=== PATIENT | female | born 1935 | race Caucasian/White ===

== ENCOUNTER 2016-12-11 20:26 | Emergency (ER) | payer OTHER ==
[~2016-12-11] VITALS: Ht 147.3 cm; Wt 52.8 kg
[~2016-12-11 20:26] MED LIST: CLTP PO; ENAL20TA PO; ESTCR; FELO10TA2 PO
[2016-12-11 20:39] VITALS: BP 190/82; PULSE 82; TEMP 36.8; O2SAT 97; Ht 147.3 cm; Wt 52.8 kg
[2016-12-11] MEDS ORDERED: SERT1TAB88 PO (21:08)
[2016-12-11] MEDS ORDERED: ESTCR PV (21:08)
[2016-12-11] MEDS ORDERED: PLN/10 PO (21:08)
[2016-12-11] MEDS ORDERED: FLNIN/ NAE (21:08)
[2016-12-11] MEDS ORDERED: CALC-579 PEG (21:09)
[2016-12-11] MEDS ORDERED: GUAI1TAB55 PO (21:12)
[2016-12-11] MEDS ORDERED: EYE VITAMIN OPB (21:12)
[2016-12-11 21:50] LABS: URINE APPEARANCE CLEAR (CLEAR); URINE BILIRUBIN NEG (NEG); URINE COLOR YELLOW; URINE NITRITE NEG (NEG); URINE SPECIFIC GRAVITY 1.004 (1.000-1.030); UROBILINOGEN NEG (NEG)
[2016-12-11 21:56] LABS: MANUAL MICROSCOPIC REQUIRED? NO; REVIEW REQ? NO
--- NOTE | 2016-12-13 02:18 | EMERGENCY ROOM VISIT NOTE ---
ED Visit Note First contact with patient: 21:01 Chief Complaint: Left hip pain. History of Present Illness: Ms. King brunner is an 81-year-old white female who ambulates into the ED accompanied by her son complaining of left hip pain. Patient reports approximately 5-6 hours ago she was at rest and reported that she developed left lateral hip pain. She reports initially was mild and has gradually increased in intensity. She describes her pain as a deep achy sensation that is occasionally sharp. She rates her discomfort 4/10. She reports initially about 2-3 days ago she was experiencing some left-sided lumbar back pain while at rest. She reports the pain was not severe but subsequently self resolved. She goes on to report that she started having left hip pain. This started approximately 5-6 hours ago. Her discomfort started while she was at rest. She rates her discomfort 4/10 throughout the day but currently she is pain-free. She has not identified any aggravating or alleviating factors related to the pain. She has not taken any medication for pain prior to arrival at the hospital. She denies any associated symptoms fevers, chills, sweats, skin eruptions, skin color changes, hematuria, vaginal bleeding, vaginal discharge, diarrhea, constipation, rectal bleeding, black/ tarry stools, leg weakness/numbness/tingling. Additionally she has noted some mild urinary burning over the last day couple of days and increasing vaginal dryness. She does not have any associated fevers , chills, back/flank pain, nausea, vomiting, vaginal discharge, vaginal bleeding. 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 All body systems were reviewed and found to be negative as noted above. Past Medical History: Hypertension. Current Medications: Medications Dose Route/Sig Max Daily Dose Days Date Category [Eye Vitamin Drop] 1 Drop OPB BID 12/11/16 Reported Mucinex Ext Rel (Guaifenesin) 600 Mg Tab 600 Mg PO TID 12/11/16 Reported Calcium/Vitamin D3 600-400 mg-Unit (Calcium Carbonate-Cholecalcife) 1 Tab Tab 1 Tab PEG BID 12/11/16 Reported Estrace (Estradiol Vaginal) 0.1 Mg/Gm Cre 1 Appln PV 1-2 X WEEK 12/11/16 Reported Felodipine ER (Felodipine) 10 Mg Tabcr 10 Mg PO QAM 12/11/16 Reported Sertraline HCl 25 Mg Tab 25 Mg PO DAILY 12/11/16 Reported Fluticasone Propionate 120 Sprays/6000 Mcg Inha 2 Sprays CARSON DAILY 12/11/16 Reported Enalapril Maleate 20 Mg Tab 20 Mg PO QAM 12/30/14 Reported Allergies to Medications: Amoxicillin, hydrocodone, prednisone, penicillin, sulfa. Social History: Patient is not currently employed; she feels safe in her home environment; she denies tobacco and alcohol use. Physical Examination: Vital Signs: Date Time Temp Pulse Resp B/P Pulse Ox O2 Delivery O2 Flow Rate FiO2 12/11/16 20:39 36.8 82 18 190/82 97 Room Air GENERAL: 81-year-old female in no acute distress, nontoxic-appearing, afebrile and hemodynamically stable. NEUROLOGICAL: Awake, alert and oriented to person, place and time. Answering questions appropriately and following commands. Normal gait. Good hand eye coordination. No focal motor sensory deficits. SKIN: Warm, dry and pink. No soft tissue eruptions or trauma noted. HEENT: Atraumatic and normocephalic. PERRLA. Sclera white and conjunctiva pink. No drainage from naris. Oral cavity moist and pink. Pharynx is nonerythematous or edematous. Speech normal. No lymphadenopathy. Trachea midline. No jugular venous distention. BACK: No tenderness over the bony thoracic or lumbar spine. No palpable bony deformity, crepitus, swelling or ecchymosis. No tenderness in the paraspinous muscles. Full range of motion of the lumbar spine. No CVA tenderness. THORAX: Lungs sounds are clear to auscultation and equal bilaterally with symmetrical chest wall. ABDOMEN: Flat, soft and nontender. Positive bowel sounds in all quadrants. No guarding, rigidity or organomegaly. LOWER EXTREMITIES: No gross bony deformities. No shortening or malrotation. No tenderness throughout the hip, thigh, knee, lower leg, ankle or foot. No local swelling or bruising. 2+ patellar and Achilles the tendon reflexes intact and equal bilaterally. 4/5 muscle strength in all movements of the hips , knees, ankles and toes. ED Course: Patient is assessed as noted above. Laboratory Testing: Test 12/11/16 21:15 Range/Units Urine Color YELLOW Urine Appearance CLEAR CLEAR Urine pH 7.0 4.5-7.5 Urine Specific [place] 1.004 1.000-1.030 Urine Protein NEG NEG Urine Glucose (UA) NEG NEG Urine Ketones NEG NEG Urine Occult Blood NEG NEG Urine Nitrite NEG NEG Urine Bilirubin NEG NEG Urine Urobilinogen NEG NEG Urine Leukocyte Esterase NEG NEG Patient's case was reviewed with case management concerning the patient's trouble with her 's care; they met with the patient and gave her multiple resources for assistance with her 's care. Patient was educated about hannah's findings and instructed on her treatment plan; she verbalizes understanding and agreement with this plan. Clinical Impression: Left upper leg pain. Urinary burning. Vaginal dryness. Disposition: Patient discharged home in stable condition accompanied by her son ; prior to departure she was reassessed and subjectively reported she was pain and symptom-free and was feeling better. Plan: Patient was encouraged use ibuprofen or acetaminophen as needed for pain if it returned in her hip/back. I did tell patient was okay to use an extra dose of her estrogen cream during the week for her vaginal dryness but she was encouraged to follow-up with her family doctor. Patient was encouraged to use the resources that were given her for assistance with her . Patient was encouraged to follow-up with her primary care provider for recheck if no better in 3-4 days. Patient was encouraged return the ED for worsening/uncontrolled pain, worsening urinary burning, worsening vaginal dryness or any new/concerning symptoms.
== END 2016-12-11 23:04 | disposition home or self-care (01) ==
LOC: C.EDB 20:28 → C.EDD 23:04
DX: M25.552 Pain in left hip (principal); R30.0 Dysuria; I10 Essential (primary) hypertension; N89.8 Other specified noninflammatory disorders of vagina

== ENCOUNTER → 2017-12-03 | Day surgery (SDC) | payer OTHER ==
[2017-11-29 08:12] VITALS: Ht 151.1 cm; Wt 50.9 kg
[~2017-12-03] VITALS: Ht 151.1 cm; Wt 50.9 kg
[~2017-12-03] MED LIST changes: +CHOL100010 PO; -CLTP PO; -ESTCR; +ESTCR PV; -FELO10TA2 PO; +GUAI1TAB55 PO; +LIDOCAINE HCL 2% 2 ML VIAL (20MG/ML) ONE; +PLN/10 PO; +POLYSOL OPB; +PROPOFOL IV EMULSION 10 MG/ML 20 ML VIAL IV ONE; +SALI1SPR3 NAE; +SERT50TA PO; +SODIUM CHLORIDE 0.9% 500ML 500 ML IV ONE; +TRAZ50TA35 PO
--- NOTE | 2017-12-03 10:45 | Endo History and Physical ---
History & Physical Date of Service: Dec 03, 2017. Chief Complaint: h/o polyps Referring Physician: Dr. Messina History of Present Illness h/o polyps Past Medical History Hypertension Past Surgical History Hx Cardiac Surgery: No Hx Internal Defibrillator: No Hx Pacemaker: No Hx Abdominal Surgery: Yes (FULL HYSTER, CERVIX REMOVAL) Hx of Implantable Prosthesis: No Hx Post-Op Nausea and Vomiting: No Hx Cancer Surgery: No Hx Thoracic Surgery: No Hx Orthopedic: No Hx Urinary Tract Surgery: No Family History None Social History Smoking Status: Never Smoker Hx Substance Use: No Hx Alcohol Use: Yes (OCCASIONAL) Allergies Coded Allergies: Amoxicillin (Verified Allergy, Intermediate, Rash, 12/03/17) Sulfa Antibiotics (Verified Allergy, Intermediate, Urticaria and puritis, 12/03/17) Penicillins (Verified Allergy, Unknown, AMOXICILLIN, 12/03/17) Prednisone (Verified Allergy, Unknown, PT FELT LIKE SHE WAS HAVING HEART ATTACK, 11/29/17) Hydrocodone (Verified Adverse Reaction, Intermediate, SEVERE NAUSEA & VOMITIMG, 12/03/17) Current Medications Reported Home Medications Medications Dose Route/Sig Max Daily Dose Days Date Category Saline Nasal [place] (Saline) 0.65 % Spr 1 [place] CARSON DAILY 11/29/17 Reported Refresh (Polyvinyl Alcohol-Povidone (Op) 1 Arnol Arnol 1 Drop OPB BID 11/29/17 Reported Vitamin D (Cholecalciferol) 1,000 Unit Tab 1 Tab PO QAM 11/29/17 Reported Trazodone (Trazodone HCl) 50 Mg Tab 2 Tabs PO HS 11/29/17 Reported Mucinex Ext Rel (Guaifenesin) 600 Mg Tab 600 Mg PO BID 11/29/17 Reported Zoloft (Sertraline Hcl) 50 Mg Tab 50 Mg PO QAM 11/29/17 Reported Estrace (Estradiol Vaginal) 0.1 Mg/Gm Cre 1 Appln PV 1-2 X WEEK 12/11/16 Reported Felodipine ER (Felodipine) 10 Mg Tabcr 10 Mg PO QAM 12/11/16 Reported Enalapril Maleate 20 Mg Tab 20 Mg PO QAM 12/30/14 Reported Vital Signs Weight (Kilograms): 50.91 Height (Feet): 4 Height (Inches): 11.5 Date Time Temp Pulse Resp B/P (MAP) Pulse Ox O2 Delivery O2 Flow Rate FiO2 12/03/17 10:26 36.6 97 18 180/73 (108) 96 Room Air Physical Exam General Appearance: WD/WN, no apparent distress Assessment and Plan colonoscopy today
--- NOTE | 2017-12-03 11:18 | Discharge Instructions ---
Endoscopy Patient Instructions Date / Procedure(s) Performed Dec 03, 2017. Colonoscopy Allergy Information Coded Allergies: Amoxicillin (Verified Allergy, Intermediate, Rash, 12/03/17) Sulfa Antibiotics (Verified Allergy, Intermediate, Urticaria and puritis, 12/03/17) Penicillins (Verified Allergy, Unknown, AMOXICILLIN, 12/03/17) Prednisone (Verified Allergy, Unknown, PT FELT LIKE SHE WAS HAVING HEART ATTACK, 11/29/17) Hydrocodone (Verified Adverse Reaction, Intermediate, SEVERE NAUSEA & VOMITIMG, 12/03/17) Discharge Date / Findings Dec 03, 2017. diverticulosis; hemorrhoids Medication Instructions Stopped Medication(s): NO VITAMINS NO SLEEING PILL Restart Stopped Medication(s): OK to resume home medications Provider Instructions Activity Restrictions - No exercising or heavy lifting for 24 hours. - Do not drink alcohol the day of the procedure. - Do not drive a car or operate machinery until the day after the procedure. - Do not make any important decisions or sign important papers in 24 hours after the procedure. Following Day: - Return to full activity which may include returning to work/school. Diet Start your diet with liquids and light foods (jello, soup, juice, toast). Then eat your usual diet if not nauseated. Treatment For Common After Affects For mild abdominal pain, bloating, or excessive gas: - Rest - Eat lightly - Lie on right side Follow-Up Information Follow-up with Dr. Messina as scheduled Anesthesia Information What You Should Know You have had a procedure that required some medicine to reduce anxiety and discomfort. This treatment is called moderate sedation. After receiving the treatment, you may be sleepy, but you will be able to breathe on your own. The effects of the treatment may last for several hours. Follow these instructions along with Activity/Diet recommendations noted above: * Do NOT do anything where dizziness or clumsiness would be dangerous. * Rest quietly at home today, then you can be up and about tomorrow. * Have a responsible person stay with you the rest of today. * You may have had an I.V. today. If so, you may take the dressing off later today. Recommendations Call your doctor if: * Trouble breathing * Continuous vomiting for more than 24 hours * Temperature above 101 degrees * Severe abdominal pain or bloating * Pain not relieved by pain medicine ordered * There is increased drainage or redness from any incision * A large amount of rectal bleeding greater than 2-3 tablespoons. (If you had a polyp/s removed or have hemorrhoids, a small amount of blood - from the rectum is to be expected.) * You have any unanswered questions or concerns. IN THE EVENT OF A SERIOUS EMERGENCY, GO TO THE NEAREST EMERGENCY ROOM Your discharge instructions were prepared by provider Joselyn Petty. Patient Instructions Signature Page Lisa Rios Patient (or Guardian) Signature/Date: I have read and understand the instructions given to me by my caregivers. Caregiver/RN/Doctor Signature/Date: The above-named patient and/or guardian has received patient instructions on this date. + Original Patient Signature Page (only) stays with chart. Please make copy for patient.
--- NOTE | 2017-12-03 11:20 | GI REPORT ---
Procedure Date: 12/03/2017 10:45 AM Procedure: Colonoscopy Indications: High risk colon cancer surveillance: Personal history of colonic polyps, Family history of colonic polyps in a first-degree relative Medicines: Propofol per Anesthesia Complications: No immediate complications. Estimated blood loss: None. Estimated Blood Loss: Estimated blood loss: none. Procedure: Pre-Anesthesia Assessment: - Prior to the procedure, a History and Physical was performed, and patient medications, allergies and sensitivities were reviewed. The patient's tolerance of previous anesthesia was reviewed. - The risks and benefits of the procedure and the sedation options and risks were discussed with the patient. All questions were answered and informed consent was obtained. - Patient identification and proposed procedure were verified prior to the procedure by the physician and the nurse. The procedure was verified in the pre-procedure area in the procedure room. - Mental Status Examination: alert and oriented. Airway Examination: normal oropharyngeal airway and neck mobility. Respiratory Examination: clear to auscultation. CV Examination: normal. Abdominal Examination: bowel sounds present, abdomen soft and non-tender, no masses or organomegaly noted. - ASA Grade Assessment: III - A patient with severe systemic disease. After I obtained informed consent, the scope was passed under direct vision. Throughout the procedure, the patient's blood pressure, pulse, and oxygen saturations were monitored continuously. The scope was introduced through the anus and advanced to the terminal ileum. The colonoscopy was performed without difficulty. The patient tolerated the procedure well. The quality of the bowel preparation was good. Findings: The perianal and digital rectal examinations were normal. Pertinent negatives include normal sphincter tone and no palpable rectal lesions. The terminal ileum appeared normal. Many small and large-mouthed diverticula were found in the sigmoid colon. External and internal hemorrhoids were found during retroflexion and during perianal exam. The hemorrhoids were medium-sized and Grade I (internal hemorrhoids that do not prolapse). Impression: - The examined portion of the ileum was normal. - Diverticulosis in the sigmoid colon. - External and internal hemorrhoids. - No specimens collected. Recommendation: - No repeat colonoscopy due to age and the absence of advanced adenomas. - Return to primary care physician as previously scheduled. - Discharge patient to home. Joselyn Petty D.O. Joselyn Petty DO 12/03/2017 11:20:30 AM This report has been signed electronically. Note Initiated On: 12/03/2017 10:45 AM I attest to the content of the Intraoperative Record and orders documented therein, exceptions below
--- NOTE | 2017-12-03 11:45 | Anesthesiology Progress Note ---
Anesthesia Post Op Note Date & Time Dec 03, 2017 at 11:45 Vital Signs Pain Intensity: 0 Vital Signs Past 12 Hours Date Time Temp Pulse Resp B/P (MAP) Pulse Ox O2 Delivery O2 Flow Rate FiO2 12/03/17 11:38 78 18 123/57 (79) 97 Room Air 12/03/17 11:21 36.7 78 16 110/55 (73) 96 Room Air 12/03/17 10:26 36.6 97 18 180/73 (108) 96 Room Air Notes Mental Status: alert / awake / arousable, participated in evaluation Pt Amnestic to Procedure: Yes Nausea / Vomiting: adequately controlled Pain: adequately controlled Airway Patency, RR, SpO2: stable & adequate BP & HR: stable & adequate Hydration State: stable & adequate Anesthetic Complications: no major complications apparent
[2017-12-03 11:53] VITALS: BP 141/67; PULSE 83; O2SAT 97
== END | disposition home or self-care (01) ==
LOC: C.GI 09:56
PROVIDERS: ATTEND Internal Medicine
DX: Z12.11 Encounter for screening for malignant neoplasm of colon (principal); Z86.010 Personal history of colon polyps; K64.4 Residual hemorrhoidal skin tags; K64.8 Other hemorrhoids; K57.30 Diverticulosis of large intestine without perforation or abscess without bleeding; I10 Essential (primary) hypertension; E78.5 Hyperlipidemia, unspecified; M19.90 Unspecified osteoarthritis, unspecified site; F41.9 Anxiety disorder, unspecified; Z90.710 Acquired absence of both cervix and uterus; Z88.1 Allergy status to other antibiotic agents; Z88.0 Allergy status to penicillin; Z88.2 Allergy status to sulfonamides; Z88.5 Allergy status to narcotic agent; Z88.8 Allergy status to other drugs, medicaments and biological substances

== ENCOUNTER 2018-04-16 17:51 | Emergency (ER) | payer OTHER ==
[~2018-04-16] VITALS: Ht 152.4 cm; Wt 55.0 kg
[~2018-04-16 17:51] MED LIST changes: -LIDOCAINE HCL 2% 2 ML VIAL (20MG/ML) ONE; -PROPOFOL IV EMULSION 10 MG/ML 20 ML VIAL IV ONE; +SALI-3 NAE; -SALI1SPR3 NAE; -SODIUM CHLORIDE 0.9% 500ML 500 ML IV ONE
[2018-04-16 17:53] VITALS: TEMP 36.5
[2018-04-16] MEDS ORDERED: MECLIZINE HCL 25 MG TAB PO STA (18:13)
[2018-04-16 18:40] LABS: BASO % 0.3 %; BASO ABS # 0.02 K/uL (0-0.2); EOS % 1.6 %; HEMATOCRIT 40.7 % (37-47); IG# 0.02 K/uL (0.00-0.02); LYMPH ABS # 1.62 K/uL (1.2-3.4); MEAN CELL VOLUME 88.7 fL (80-100); MEAN CORPUSCULAR HEMOGLOBIN 30.5 pg (25-34); MEAN CORPUSCULAR HGB CONC 34.4 g/dl (32-36); MEAN PLATELET VOLUME 8.7 fL (7.4-10.4); MONO % 8.7 %; MONO ABS # 0.54 K/uL (0.11-0.59); NEUT % 63.1 %; NEUT ABS # 3.93 K/uL (1.4-6.5); PLATELET COUNT 228 K/uL (130-400); RED CELL DISTRIBUTION WIDTH CV 13.7 % (11.5-14.5); RED CELL DISTRIBUTION WIDTH SD 44.4 fL (36.4-46.3); WHITE BLOOD COUNT 6.23 K/uL (4.8-10.8)
[2018-04-16 19:02] VITALS: Ht 152.4 cm; Wt 55.0 kg
--- NOTE | 2018-04-16 19:02 | DIAGNOSTIC IMAGING REPORT ---
CT HEAD WITHOUT CONTRAST (CT) CLINICAL HISTORY: DIZZINESS LIGHTHEADEDNESS. HEADACHES. COMPARISON STUDY: No previous studies for comparison. TECHNIQUE: Axial CT of the brain is performed from the vertex to the skull base. IV contrast was not administered for this examination. A dose lowering technique was utilized adhering to the principles of ALARA. CT DOSE: 537.48 mGy.cm FINDINGS: No intra or extra-axial mass lesions are visualized. There is no CT evidence of acute cortical infarction. There is no evidence of midline shift. There is no acute hemorrhage. No calvarial fractures are visualized. There are patchy white matter hypodensities likely on a small vessel basis. There is no evidence of pathologic ventricular dilatation. There is no evidence of acute sinusitis IMPRESSION: No acute intracranial findings Electronically signed by: Raheel Thomas M.D. 04/16/2018 7:01 PM Dictated Date/Time: 04/16/2018 7:00 PM
[2018-04-16 19:09] LABS: CALCIUM 9.1 mg/dl (8.5-10.1); CREATININE 0.81 mg/dl (0.60-1.20); POTASSIUM 3.8 mmol/L (3.5-5.1)
--- NOTE | 2018-04-16 21:19 | EMERGENCY ROOM VISIT NOTE ---
History Report prepared by [place]: Ronna Hernandez Under the Supervision of: Dr. Dinesh Tatum M.D. First contact with patient: 18:08 Chief Complaint: DIZZY History of Present Illness The patient is an 82 year old female who presents to the Emergency Room with complaints of sudden dizziness that started just prior to arrival. The patient states she was eating dinner when she suddenly felt dizzy and did not think she could walk on her own. The patient denies feeling sick beforehand. She notes she is currently feeling better after having lied down and rested, but she notes that she is still slightly dizzy and cannot move her head around too quickly. The patient reports that she had similar symptoms a month to 6 weeks ago, accompanied by "lots of drainage." At the time, she reports that she visited Dr. Messina, who told her that she had the "[place] crude." The patient reports she has chronic sinusitis and takes Mucinex daily. The patient took Mucinex at 1500 today. The patient also complains of fatigue, jitteriness, shakiness, tinnitus, 1 episode of loose stool this morning, and unfocused vision. The patient reports a history of high blood pressure, which she is currently taking medication for. The patient also notes she had a hysterectomy 3 years ago, but she denies a history of diabetes, vertigo, and motion sickness. Pt denies LOC, fevers, chills, diaphoresis, neck pain, chest pain, breathing difficulties, nausea, vomiting, abdominal pain, back pain, melena, hematochezia, urinary symptoms, numbness, lymphadenopathy, rash, or other complaints. Source of History: patient Onset: just prior to arrival Position: head Quality: other (dizziness) Timing: other (sudden) Modifying Factors (Relieving): rest (lying down and rest) Associated Symptoms: + fatigue, + weakness (shakiness) Note: additional symptoms: sinus drainage, jitteriness, tinnitus, loose stool, unfocused vision Review of Systems See HPI for pertinent positives and negatives. A total of ten systems were reviewed and were otherwise negative. Past Medical & Surgical Medical Problems: (1) Hypertension (2) Sinusitis Surgical Problems: (1) S/P hysterectomy Family History No pertinent family history Social History Smoking Status: Never Smoker Marital Status: Current/Historical Medications Scheduled Cholecalciferol (Vitamin D), 1 TAB PO QAM Enalapril Maleate (Enalapril Maleate), 20 MG PO QAM Estradiol Vaginal (Estrace), 1 APPLN PV 3XMONTH Felodipine (Felodipine ER), 10 MG PO QAM Guaifenesin Ext Rel (Mucinex Ext Rel), 600 MG PO TID Saline (Saline Nasal [place]), 1 SPRAY CARSON BID Scheduled PRN Meclizine Hcl (Meclizine Hcl), 25 MG PO TID PRN for Dizziness Allergies Coded Allergies: Amoxicillin (Verified Allergy, Intermediate, Rash, 04/16/18) Sulfa Antibiotics (Verified Allergy, Intermediate, Urticaria and puritis, 04/16/18) Penicillins (Verified Allergy, Unknown, AMOXICILLIN, 04/16/18) Prednisone (Verified Allergy, Unknown, PT FELT LIKE SHE WAS HAVING HEART ATTACK, 04/16/18) Hydrocodone (Verified Adverse Reaction, Intermediate, SEVERE NAUSEA & VOMITIMG, 04/16/18) Physical Exam Vital Signs Date Time Temp Pulse Resp B/P (MAP) Pulse Ox O2 Delivery O2 Flow Rate FiO2 04/16/18 21:56 87 18 149/88 97 Room Air 04/16/18 19:52 96 18 175/82 97 Room Air 04/16/18 19:28 93 20 158/86 96 Room Air 04/16/18 19:24 96 158/86 103 189/95 109 199/107 04/16/18 18:28 91 04/16/18 18:20 Room Air 04/16/18 17:53 36.5 95 20 196/67 97 Room Air Physical Exam GENERAL: Awake, alert, well appearing, no distress HENT: Normocephalic, atraumatic. TM's normal. Oropharynx unremarkable. EYES: PERRL. EOMI. Normal conjunctiva. Sclera non-icteric. Lateral nystagmus. NECK: Supple. No nuchal rigidity. FROM. No bruit. RESPIRATORY: Breath sounds equal. No wheezes. No rhonchi. Normal respiratory effort. CARDIAC: Normal rate. Regular rhythm. No murmurs. No rubs. No JVD. GI: Soft, non distended. No tenderness to palpation. No rebound or guarding. No masses. RECTAL: Deferred. MUSCULOSKELETAL: Unremarkable. No edema. No discoloration. Gross motor strength symmetric. NEURO: Cranial nerves 2-12 grossly intact. Normal sensorium. No sensory or motor deficits noted. Speech normal. No pronator drift. Positive [place]-Hallpike. Normal heel to payton. SKIN: No rash or jaundice noted. LYMPH: No adenopathy. Medical Decision & Procedures ER Provider Diagnostic Interpretation: Radiology results as stated below per my review and radiologist interpretation: CT HEAD WITHOUT CONTRAST (CT) CLINICAL HISTORY: DIZZINESS LIGHTHEADEDNESS. HEADACHES. COMPARISON STUDY: No previous studies for comparison. TECHNIQUE: Axial CT of the brain is performed from the vertex to the skull base. IV contrast was not administered for this examination. A dose lowering technique was utilized adhering to the principles of ALARA. CT DOSE: 537.48 mGy.cm FINDINGS: No intra or extra-axial mass lesions are visualized. There is no CT evidence of acute cortical infarction. There is no evidence of midline shift. There is no acute hemorrhage. No calvarial fractures are visualized. There are patchy white matter hypodensities likely on a small vessel basis. There is no evidence of pathologic ventricular dilatation. There is no evidence of acute sinusitis IMPRESSION: No acute intracranial findings Electronically signed by: Raheel Thomas M.D. 04/16/2018 7:01 PM Dictated Date/Time: 04/16/2018 7:00 PM Laboratory Results 04/16/18 18:25 Red Blood Count 4.59, Mean Corpuscular Volume 88.7, Mean Corpuscular Hemoglobin 30.5, Mean Corpuscular Hemoglobin Concent 34.4, Mean Platelet Volume 8.7, Neutrophils (%) (Auto) 63.1, Lymphocytes (%) (Auto) 26.0, Monocytes (%) (Auto) 8.7, Eosinophils (%) (Auto) 1.6, Basophils (%) (Auto) 0.3, Neutrophils # (Auto) 3.93, Lymphocytes # (Auto) 1.62, Monocytes # (Auto) 0.54, Eosinophils # (Auto) 0.10, Basophils # (Auto) 0.02 04/16/18 18:25 Test 04/16/18 18:25 04/16/18 18:26 04/16/18 20:20 White Blood Count 6.23 K/uL (4.8-10.8) Red Blood Count 4.59 M/uL (4.2-5.4) Hemoglobin 14.0 g/dL (12.0-16.0) Hematocrit 40.7 % (37-47) Mean Corpuscular Volume 88.7 fL (80-100) Mean Corpuscular Hemoglobin 30.5 pg (25-34) Mean Corpuscular Hemoglobin Concent 34.4 g/dl (32-36) Platelet Count 228 K/uL (130-400) Mean Platelet Volume 8.7 fL (7.4-10.4) Neutrophils (%) (Auto) 63.1 % Lymphocytes (%) (Auto) 26.0 % Monocytes (%) (Auto) 8.7 % Eosinophils (%) (Auto) 1.6 % Basophils (%) (Auto) 0.3 % Neutrophils # (Auto) 3.93 K/uL (1.4-6.5) Lymphocytes # (Auto) 1.62 K/uL (1.2-3.4) Monocytes # (Auto) 0.54 K/uL (0.11-0.59) Eosinophils # (Auto) 0.10 K/uL (0-0.5) Basophils # (Auto) 0.02 K/uL (0-0.2) RDW Standard Deviation 44.4 fL (36.4-46.3) RDW Coefficient of Variation 13.7 % (11.5-14.5) Immature Granulocyte % (Auto) 0.3 % Immature Granulocyte # (Auto) 0.02 K/uL (0.00-0.02) Anion Gap 8.0 mmol/L (3-11) Est Creatinine Clear Calc Drug Dose 41.0 ml/min Estimated GFR () 77.8 Estimated GFR (Non- 67.2 BUN/Creatinine Ratio 22.2 (10-20) Calcium Level 9.1 mg/dl (8.5-10.1) Thyroid Stimulating Hormone (TSH) 2.690 uIu/ml (0.300-4.500) Bedside Glucose 115 mg/dl (70-90) Urine Color YELLOW Urine Appearance CLEAR (CLEAR) Urine pH 7.0 (4.5-7.5) Urine Specific [place] 1.012 (1.000-1.030) Urine Protein NEG (NEG) Urine Glucose (UA) NEG (NEG) Urine Ketones NEG (NEG) Urine Occult Blood NEG (NEG) Urine Nitrite NEG (NEG) Urine Bilirubin NEG (NEG) Urine Urobilinogen NEG (NEG) Urine Leukocyte Esterase NEG (NEG) Laboratory results reviewed by me Medications Administered Medications (Trade) Dose Ordered Sig/Forrest Route Start Time Stop Time Status Last Admin Dose Admin Meclizine HCl (Antivert Tab) 25 mg NOW STAT PO 04/16/18 18:13 04/16/18 18:15 DC 04/16/18 18:26 25 MG Meclizine HCl (Antivert 25MG Home Pack) 1 homepack UD ONCE PO 04/16/18 21:30 04/16/18 21:31 DC 04/16/18 21:45 1 HOMEPACK ECG Per My Interpretation Indication: other (dizziness) Rate (beats per minute): 92 Rhythm: sinus with SA Findings: other (no ST elevation, no ST depression, normal intervals) ED Course 1808: The patient was evaluated in room A3. A complete history and physical exam was performed. 1812: Ordered Antivert Tab 25 mg PO. 1999: I checked on the patient and updated her on her results. The patient is feeling better and preparing for an oral challenge and ambulatory trial. 2129: Ordered Antivert 25MG Home Pack 1 homepack PO. 2149: I reevaluated the patient. Discussed results and discharge instructions: She verbalized understanding and agreement. The patient is ready for discharge. Medical Decision Prior records/ancillary studies reviewed. Triage Nursing notes reviewed and agree them. The patient's history was concerning for dizziness. Differential diagnosis: Etiologies such as benign positional vertigo, tumor, infection, hypoglycemia, electrolyte abnormalities, cardiac sources, intracerebral event, toxicologic, neurologic, as well as others were entertained. Physical examination: As above. No pathologic nystagmus. No neurologic findings. ER treatment provided: Oral meclizine On reassessment the patient felt well. She is tolerating oral fluids. Her ambulatory trial was normal. Blood pressure improved without direct intervention. I suspect her blood pressure elevation was due to her illness. Diagnostics interpretation by me: ECG: Normal sinus rhythm without ischemic change or evidence of dysrhythmia. Laboratory studies: The labs revealed a normal CBC and chemistry panel except for mild hyponatremia. Urinalysis negative. Imaging studies: CAT scan as above The patient has an examination and history that seems most consistent with a benign positional vertigo. Meclizine and rest made her feel significantly better. Her blood pressure was still moderately elevated. I did discuss this with her. She will need close outpatient follow-up. By the evaluation outlined above other emergent etiologies such as those listed in the differential, as well as others, were deemed relatively unlikely. The patient was educated about the findings as listed above. All questions were answered and the patient was pleased with the treatment. Return instructions were outlined and the patient was discharged in stable condition. The patient was referred to her PCP for follow-up for a recheck of the current condition. Medication Reconcilliation Current Medication List: was personally reviewed by me Blood Pressure Screening Patient's blood pressure: Elevated blood pressure Blood pressure disposition: Referred to PCP Impression Primary Impression: Dizziness Additional Impression: Vertigo Scribe Attestation The scribe's documentation has been prepared under my direction and personally reviewed by me in its entirety. I confirm that the note above accurately reflects all work, treatment, procedures, and medical decision making performed by me. Departure Information Dispostion Home / Self-Care Prescriptions Meclizine Hcl (MECLIZINE HCL) 25 Mg Tab 25 MG PO TID Y for Dizziness, #21 TAB Prov: Dinesh Tatum MD 04/16/18 Referrals Alexander Messina M.D.([facility]) (PCP) Forms HOME CARE DOCUMENTATION FORM, IMPORTANT VISIT INFORMATION Patient Instructions My [facility] Additional Instructions DIZZINESS INSTRUCTIONS: DO NOT drive, drink alcohol, operate machinery, or perform dangerous activities today. You were given medications in the ER that can affect your ability to safely function or operate a vehicle. You should not drive or perform any dangerous activities until your symptoms resolve. Meclizine 25mg: Take 1 pill every 8 hours as needed for dizziness or vertigo. Avoid alcohol, operating machinery or dangerous equipment, working on ladders or roofs, DRIVING, or situations where being under the influence may be dangerous Rest and drink plenty of fluids as tolerated. Continue current medications. If you have nausea or vomiting: Once your stomach is settled start with a clear liquid diet (jello, soup broth, etc.) and then advance as tolerated. You should avoid full, heavy meals for about 24 hrs from the time your symptoms resolved. Return to the ER immediately for worsening or persistent dizziness, vomiting, headache, fevers, chest pains, difficulty breathing, black or bloody stools, slurred speech, numbness, weakness, visual changes, worsening of your condition , or as needed. Follow up with your primary physician in 2-3 days for a recheck of your current condition. Problem Qualifiers
[2018-04-16] MEDS ORDERED: MECL1TAB42 PO (21:20)
[2018-04-16] MEDS ORDERED: MECLIZINE HCL 25MG HOME PACK PO ONE (21:30)
[2018-04-16 21:56] VITALS: BP 149/88; PULSE 87; O2SAT 97
== END 2018-04-16 21:58 | disposition home or self-care (01) ==
LOC: C.EDB 17:52 → C.EDA 21:58
DX: R42 Dizziness and giddiness (principal); J32.9 Chronic sinusitis, unspecified; I10 Essential (primary) hypertension; Z79.899 Other long term (current) drug therapy; Z88.1 Allergy status to other antibiotic agents; Z88.2 Allergy status to sulfonamides; Z88.0 Allergy status to penicillin; Z88.6 Allergy status to analgesic agent; Z88.8 Allergy status to other drugs, medicaments and biological substances

== ENCOUNTER 2023-12-16 23:41 | Inpatient (IN) ==
[2023-12-17 00:14] LABS: Basophils # (auto) 0.03 K/uL (0.00-0.20); Basophils % (auto) 0.4 %; Eosinophils # (auto) 0.19 K/uL (0.00-0.50); Eosinophils % (auto) 2.6 %; Hematocrit (blood only) 38.7 % (37.0-47.0); Immature Granulocytes # (auto) 0.02 K/uL (0.01-0.20); Immature Granulocytes % (auto) 0.3 %; Lymphocytes # (auto) 1.53 K/uL (1.20-3.40); Lymphocytes % (auto) 20.6 %; Mean Corpuscular Hemoglobin 29.3 pg (25.0-34.0); Mean Corpuscular Hgb Conc 33.6 g/dL (32.0-36.0); Mean Corpuscular Volume 87.2 fL (80.0-100.0); Monocytes # (auto) 0.83 K/uL (0.11-0.59); Monocytes % (auto) 11.2 %; Neutrophils # (auto) 4.84 K/uL (1.40-6.50); Neutrophils % (auto) 64.9 %; Platelet Count 235 K/uL (130-400); RDW Coefficient of Variation 13.6 % (11.5-14.5); RDW Standard Deviation 43.7 fL (36.4-46.3); Red Blood Count 4.44 M/uL (4.20-5.40); White Blood Count 7.44 K/ul (4.8-10.8)
[2023-12-17 00:27] LABS: Alanine Aminotransferase 10 U/L (7-52); Albumin Globulin Ratio 1.2 (0.9-2); Albumin Level 4.1 gm/dl (3.4-5.0); Alkaline Phosphatase 102 U/L (34-104); Anion Gap 8 (3-11); Aspartate Aminotransferase 15 U/L (13-39); BUN Creatinine Ratio 27.9 (10-20); Bilirubin,Total 0.5 mg/dl (0.2-1.0); Blood Urea Nitrogen 24 mg/dl (6-23); Calcium 9.5 mg/dl (8.6-10.3); Carbon Dioxide 26 mmol/L (21-32); Chloride 98 mmol/L (98-107); Est GFR (African American) 69.4 ml/min; Est GFR (Non-African American) 59.9 ml/min; Globulin 3.3 gm/dl (2.5-4.0); Glucose 109 mg/dl (70-99(Fasting)); Potassium 3.3 mmol/L (3.5-5.1); Sodium 132 mmol/L (136-145); Total Protein 7.4 gm/dl (6.0-8.3)
[2023-12-17 00:34] LABS: Troponin I High Sensitivity 4.6 pg/ml (0-14)
[2023-12-17 00:44] LABS: Partial Thromboplastin Time 27 Seconds (21-31); Prothrombin Time 11.3 Seconds (9.0-12.0)
--- NOTE | 2023-12-17 01:19 | Emergency Department Note ---
Impression & Plan Chest pain, HTN (hypertension), Hypokalemia ED Provider Note NAME: ROSARIO ÁLVAREZ AGE: 88 SEX: F : 1935 ARRIVES VIA: Ambulance INFORMANT: Patient ED PROVIDER(S): Kyrie Martinez DO CHIEF COMPLAINT: chest pain HPI: Patient is an 88-year-old female with a past medical history of anxiety, vertigo, dizziness and hypertension who presents to the ER for precordial chest pain. She notes it lasted for about 20 minutes. She has trouble describing how it felt but notes that it was an uncomfortable feeling in the middle of her chest. She has some jaw pain with it. No arm pain or significant shortness of breath. She notes she did have a headache as well which consistent with her typical headaches. No belly pain, nausea, vomiting, or diarrhea. No dysuria, urgency, or frequency. No other exacerbating or remitting factors. ADDITIONAL HISTORY OBTAINED: Per HPI Chronic Medical/Social Conditions Affecting Care: Per HPI PAST MEDICAL HISTORY:See Below PAST SURGICAL HISTORY:See Below FAMILY HISTORY:See Below SOCIAL HISTORY:See Below HOME MEDICATIONS:See Below ALLERGIES:See Below VITALS:See Below PHYSICAL EXAMINATION: GENERAL: Sitting up in bed, alert, well appearing, well nourished, no distress, non-toxic EYE EXAM: normal conjunctiva. OROPHARYNX: mucous membranes are moist NECK: supple, no nuchal rigidity, no adenopathy, non-tender LUNGS: Clear to auscultation. Normal chest wall mechanics HEART: no murmurs, S1 normal and S2 normal ABDOMEN: abdomen soft, non-tender, normo-active bowel sounds, no masses, no rebound or guarding. BACK: Back is symmetrical on inspection and there is no deformity, no midline tenderness, no CVA tenderness. SKIN: no rashes and no bruising UPPER EXTREMITIES: upper extremities are grossly normal. LOWER EXTREMITIES: No pitting edema. Calves are equal bilaterally NEURO EXAM: Normal sensorium, cranial nerves II-XII grossly intact, normal speech, no gross weakness of arms, no gross weakness of legs. MEDICAL DECISION MAKING: Patient is an 88-year-old female who presents ER for above-stated complaint. IV was established blood work was obtained. Labs show no significant leukocytosis or anemia. INR unremarkable. BMP with mild hypokalemia 3.3. LFTs bilirubin was unremarkable. Troponin was negative. Chest x-ray showed no focal infiltrate. Patient was given 162 of aspirin. She had already taken aspirin prior to arrival. She is chest pain-free. She was updated bedside discussed with the hospitalist and admitted for further workup. EKG was unchanged from previous. Consults/Care Managements Discussions: Per [facility] Triage Nursing notes reviewed. Limited review of prior medical records performed Vital Signs: reviewed and remarkable for HTN Differential diagnosis: Cardiac ischemia, aortic dissection, pulmonary embolism, pneumothorax, pneumonia, pericarditis, myocarditis, esophageal rupture, GERD, cholecystitis, pancreatitis, musculoskeletal, as well as other pathologies. ER treatment provided: See below Diagnostics interpreted by me include EKG and cardiac monitoring as listed below: -Cardiac Monitoring: An order was placed for continuous cardiac monitoring. The monitor shows a rate of 80 with sinus rhythm. -ECG: Sinus rhythm rate 79 Normal axis Inferior Q waves QTc 447 -Laboratory studies:Interpreted by me as stated above in MDM and shown below. Imaging studies: Xrays: As interpreted by me: Portable AP upright 1 view of the chest shows no focal infiltrate CTs show: none Procedures:none Critical Care: None Past Med/Surg History Medical History (Updated 12/17/23 @ 04:41 by Kyrie Martinez DO) Anxiety Vertigo Dizziness Hypertension Sinusitis Surgical History S/P hysterectomy Social History Smoking Status: Never smoker Hx Alcohol Use: No Hx Substance Use: No Preferred Language: Greenlandic Communication Ability: Effective Precise Winder Required: No Beliefs That Will Affect Care: None Current Living Situation: Alone Feels Safe at Home: Yes Assistive Devices: Walker Allergies Allergies Allergy/AdvReac Type Severity Reaction Status Date / Time amoxicillin Allergy Intermediate Rash Verified 12/17/23 01:43 loratadine Allergy Intermediate Rash Verified 12/17/23 01:43 [From Claritin-D 12 Hour] Penicillins Allergy Intermediate AMOXICILLIN Verified 12/17/23 01:43 -RASH pseudoephedrine Allergy Intermediate Rash Verified 12/17/23 01:43 [From Claritin-D 12 Hour] Sulfa (Sulfonamide Allergy Intermediate Urticaria Verified 12/17/23 01:43 Antibiotics) and puritis hydrocodone AdvReac Severe SEVERE Verified 12/17/23 01:43 NAUSEA & VOMITIMG prednisone AdvReac Intermediate ELEVATED Verified 12/17/23 01:43 B/P PER [facility] Home Meds Home Medications Medication Instructions Recorded Confirmed sertraline 25 mg tablet 37.5 mg PO QAM 08/11/19 12/17/23 felodipine 5 mg tablet,extended 5 mg PO QAM 02/08/21 12/17/23 release 24 hr guaifenesin 600 mg tablet, 600 mg PO QAM Congestion 11/08/21 12/17/23 extended release 12 hr (Mucinex) lorazepam 0.5 mg tablet 0.5 mg PO TID PRN Anxiety 11/08/21 12/17/23 ascorbic acid (vitamin C) 250 mg 250 mg PO DAILY 12/17/23 12/17/23 tablet (Vitamin C) calcium carbonate 600 mg calcium 600 mg PO QPM 12/17/23 12/17/23 (1,500 mg) tablet cholecalciferol (vitamin D3) 25 25 mcg PO QPM 12/17/23 12/17/23 mcg (1,000 unit) capsule (Vitamin D3) cyanocobalamin (vitamin B-12) 1,000 mcg PO DAILY 12/17/23 12/17/23 1,000 mcg tablet (Vitamin B-12) sodium chloride 3 % nasal mist 1 spray intranasal BID 12/17/23 12/17/23 (Saline Nasal Mist) vitamins A,C,I-pwfs-mhffpo 4,296 1 cap PO BID 12/17/23 12/17/23 mcg-226 mg-90 mg capsule (ICaps AREDS) Results & Data (ED) Vital Signs Vital Signs - 24 hr 12/16/23 23:43 Temperature 37.0 C Temperature Source Temporal Artery Scan Pulse Rate 81 Respiratory Rate 20 Respiratory Effort / Characteristics Non-Labored Spontaneous Respiratory Depth Normal Respiratory Pattern Regular Blood Pressure 204/84 H Blood Pressure Mean 124 Pulse Oximetry 96 Oxygen Delivery Method Room Air Sepsis Recent Fever Within 48 Hours Yes Sepsis New/Unexplained Change in Mental Status No Sepsis Action Taken by Nursing No Action Required Laboratory Data 12/16/23 23:51 12/16/23 23:51 Lab Results 12/16/23 Range/Units 23:51 WBC 7.44 (4.8-10.8) K/ul RBC 4.44 (4.20-5.40) M/uL Hgb 13.0 (12.0-16.0) g/dl Hct 38.7 (37.0-47.0) % MCV 87.2 (80.0-100.0) fL MCH 29.3 (25.0-34.0) pg MCHC 33.6 (32.0-36.0) g/dL RDW Std Deviation 43.7 (36.4-46.3) fL RDW Coeff of Anya 13.6 (11.5-14.5) % Plt Count 235 (130-400) K/uL MPV 9.0 L (9.4-12.4) fL Immature Gran % (Auto) 0.3 % Neut % (Auto) 64.9 % Lymph % (Auto) 20.6 % Fleming % (Auto) 11.2 % Eos % (Auto) 2.6 % Baso % (Auto) 0.4 % Neut # (Auto) 4.84 (1.40-6.50) K/uL Lymph # (Auto) 1.53 (1.20-3.40) K/uL Fleming # (Auto) 0.83 H (0.11-0.59) K/uL Eos # (Auto) 0.19 (0.00-0.50) K/uL Baso # (Auto) 0.03 (0.00-0.20) K/uL Immature Gran # (Auto) 0.02 (0.01-0.20) K/uL PT 11.3 (9.0-12.0) Seconds INR 1.0 (0.9-1.1) APTT 27 (21-31) Seconds PTT Ratio 1.0 Sodium 132 L (136-145) mmol/L Potassium 3.3 L (3.5-5.1) mmol/L Chloride 98 (98-107) mmol/L Carbon Dioxide 26 (21-32) mmol/L Anion Gap 8 (3-11) BUN 24 H (6-23) mg/dl Creatinine 0.86 (0.6-1.2) mg/dl Est Cr Clr Drug Dosing Not Reportable Est GFR ( Amer) 69.4 ml/min Est GFR (Non-Af Amer) 59.9 ml/min BUN/Creatinine Ratio 27.9 H (10-20) Glucose 109 H (70-99(Fasting)) mg/dl Calcium 9.5 (8.6-10.3) mg/dl Total Bilirubin 0.5 (0.2-1.0) mg/dl AST 15 (13-39) U/L ALT 10 (7-52) U/L Alkaline Phosphatase 102 (34-104) U/L Troponin I High Sens 4.6 (0-14) pg/ml Total Protein 7.4 (6.0-8.3) gm/dl Albumin 4.1 (3.4-5.0) gm/dl Globulin 3.3 (2.5-4.0) gm/dl Albumin/Globulin Ratio 1.2 (0.9-2) Administered Medications Sodium Chloride (Sodium Chloride 0.65% Na Soln 45 Ml ([place])) 1 sprays NA BID CINTHYA Stop: 01/16/24 04:03 Last Admin: 12/17/23 04:09 Dose: Not Given Documented By: MARY JANE Discontinued Medications Aspirin (Aspirin Chew 324 Mg) 162 mg PO NOW STA Stop: 12/17/23 01:20 Last Admin: 12/17/23 02:52 Dose: 162 mg Documented By: MARY JANE Discharge Plan Visit Data Chief Complaint: Cardiac Assessment Stated Complaint: CARDIAC ASSESSMENT ED Provider: Kyrie Martinez Discharge Problem: Chest pain, HTN (hypertension), Hypokalemia Discharge Instructions Interventions: ED Discharge Assessment Last Done: 12/17/23 03:41 Discharge Problem: Chest pain Qualifiers: Chest pain type: unspecified Qualified Code(s): R07.9 - Chest pain, unspecified HTN (hypertension) Qualifiers: Hypertension type: unspecified Qualified Code(s): I10 - Essential (primary) hypertension
[2023-12-17] MEDS: ASPIRIN CHEW 324 MG PO STA (02:52)
--- NOTE | 2023-12-17 03:00 | History & Physical Report ---
Date of Service December 17, 2023 Assessment & Plan (1) Chest pain: Plan: 88-year-old female with past medical history significant for hypertension, generalized osteoarthritis, osteoporosis, Sjogren's syndrome, generalized anxiety disorder, asymmetric's sensorineural hearing loss who lives at [facility] comes because of chest pain. Patient had chest pain which lasted maybe 15 to 20 minutes in the middle of the chest 5/10 in severity which prompted her to come to the ER. Blood pressure was elevated in the ER. Patient states hasa lot of anxiety. She gets neck pains from anxiety. Currently denies any headache. No runny nose or sore throat. Vision is okay. No dizziness. No sweating. No nausea. No shortness of breath. No abdominal pain. Normal bowel and bladder movements. Resting comfortably. Likes to go home but agreed to stay for further workup Chest pains Rule out ACS Initial EKG and troponin okay Will follow serial enzymes and echo and repeat EKG N.p.o. for now Consult cardiology for further recommendations Hypertensive urgency Continue home amlodipine IV labetalol as needed Will monitor. Generalized anxiety disorder Continue home medications DVT prophylaxis SCDs Disposition Telemetry Full code History of Present Illness Chief Complaint: Chest pain Primary Care Provider: Arlen Reveles DO 88-year-old female with past medical history significant for hypertension, generalized osteoarthritis, osteoporosis, Sjogren's syndrome, generalized anxiety disorder, asymmetric's sensorineural hearing loss who lives at [facility] comes because of chest pain. Patient had chest pain which lasted maybe 15 to 20 minutes in the middle of the chest 5/10 in severity which prompted her to come to the ER. Blood pressure was elevated in the ER. Patient states has lot of anxiety. She gets neck pains from anxiety. Currently denies any headache. No runny nose or sore throat. Vision is okay. No dizziness. No sweating. No nausea. No shortness of breath. No abdominal pain. Normal bowel and bladder movements. Resting comfortably. Likes to go home but agreed to stay for further workup. Past med history. As mentioned above Past surgical history. Colonoscopy. Total abdominal hysterectomy with removal of tubes Social history. . No smoking. Alcohol rarely. No drug use. Family history. Mother had arthritis. Stroke. Maternal grandmother had arthritis. Leukemia. Allergies Allergy/AdvReac Type Severity Reaction Status Date / Time amoxicillin Allergy Intermediate Rash Verified 12/17/23 01:43 loratadine Allergy Intermediate Rash Verified 12/17/23 01:43 [From Claritin-D 12 Hour] Penicillins Allergy Intermediate AMOXICILLIN Verified 12/17/23 01:43 -RASH pseudoephedrine Allergy Intermediate Rash Verified 12/17/23 01:43 [From Claritin-D 12 Hour] Sulfa (Sulfonamide Allergy Intermediate Urticaria Verified 12/17/23 01:43 Antibiotics) and puritis hydrocodone AdvReac Severe SEVERE Verified 12/17/23 01:43 NAUSEA & VOMITIMG prednisone AdvReac Intermediate ELEVATED Verified 12/17/23 01:43 B/P PER [facility] Home Medications Medication Instructions Recorded Confirmed Type sertraline 25 mg tablet 37.5 mg PO QAM 08/11/19 12/17/23 History felodipine 5 mg tablet,extended 5 mg PO QAM 02/08/21 12/17/23 History release 24 hr guaifenesin 600 mg tablet, 600 mg PO QAM Congestion 11/08/21 12/17/23 History extended release 12 hr (Mucinex) lorazepam 0.5 mg tablet 0.5 mg PO TID PRN Anxiety 11/08/21 12/17/23 History ascorbic acid (vitamin C) 250 mg 250 mg PO DAILY 12/17/23 12/17/23 History tablet (Vitamin C) calcium carbonate 600 mg calcium 600 mg PO QPM 12/17/23 12/17/23 History (1,500 mg) tablet cholecalciferol (vitamin D3) 25 25 mcg PO QPM 12/17/23 12/17/23 History mcg (1,000 unit) capsule (Vitamin D3) cyanocobalamin (vitamin B-12) 1,000 mcg PO DAILY 12/17/23 12/17/23 History 1,000 mcg tablet (Vitamin B-12) sodium chloride 3 % nasal mist 1 spray intranasal BID 12/17/23 12/17/23 History (Saline Nasal Mist) vitamins A,C,O-jhny-sxxpfj 4,296 1 cap PO BID 12/17/23 12/17/23 History mcg-226 mg-90 mg capsule (ICaps AREDS) Past Med/Surg History Medical History (Updated 12/17/23 @ 04:41 by Kyrie Martinez DO) Anxiety Vertigo Dizziness Hypertension Sinusitis Surgical History S/P hysterectomy Social History Smoking Status: Never smoker Hx Alcohol Use: No Hx Substance Use: No Preferred Language: French Communication Ability: Effective Collar Trimmer Required: No Beliefs That Will Affect Care: None Current Living Situation: Alone Feels Safe at Home: Yes Assistive Devices: Walker Review of Systems Review of Systems: All systems reviewed & are unremarkable except as noted in HPI & below Physical Exam Physical Exam: General- Not in distress Head- atraumatic Eyes- PERRL. ENT- oropharynx clear Neck- supple, no JVD. Lungs- clear to auscultation no wheezing or crackles. Heart- regular rhythm; no murmur, no gallop. Abdomen- normal bowel sounds, soft, nontender, no distension. Extremities- no pretibial edema, no erythema seen. Neuro- alert, oriented PERRL, no facial palsy; no dysarthria; moves extremities. Skin- warm & dry Results & Data Results & Data Vital Signs (Past 12 Hours) Vital Signs Temp Pulse Resp BP Pulse Ox O2 Del Method 12/16/23 23:43 37.0 C 81 20 204/84 H 96 Room Air Diagnostic Findings Laboratory Results WBC 7.44 K/ul (4.8-10.8) 12/16/23 23:51 RBC 4.44 M/uL (4.20-5.40) 12/16/23 23:51 Hgb 13.0 g/dl (12.0-16.0) 12/16/23 23:51 Hct 38.7 % (37.0-47.0) 12/16/23 23:51 MCV 87.2 fL (80.0-100.0) 12/16/23 23:51 MCH 29.3 pg (25.0-34.0) 12/16/23 23:51 MCHC 33.6 g/dL (32.0-36.0) 12/16/23 23:51 RDW Std Deviation 43.7 fL (36.4-46.3) 12/16/23 23:51 RDW Coeff of Anya 13.6 % (11.5-14.5) 12/16/23 23:51 Plt Count 235 K/uL (130-400) 12/16/23 23:51 MPV 9.0 fL (9.4-12.4) L 12/16/23 23:51 Immature Gran % (Auto) 0.3 % 12/16/23 23:51 Neut % (Auto) 64.9 % 12/16/23 23:51 Lymph % (Auto) 20.6 % 12/16/23 23:51 [place] % (Auto) 11.2 % 12/16/23 23:51 Eos % (Auto) 2.6 % 12/16/23 23:51 Baso % (Auto) 0.4 % 12/16/23 23:51 Neut # (Auto) 4.84 K/uL (1.40-6.50) 12/16/23 23:51 Lymph # (Auto) 1.53 K/uL (1.20-3.40) 12/16/23 23:51 [place] # (Auto) 0.83 K/uL (0.11-0.59) H 12/16/23 23:51 Eos # (Auto) 0.19 K/uL (0.00-0.50) 12/16/23 23:51 Baso # (Auto) 0.03 K/uL (0.00-0.20) 12/16/23 23:51 Immature Gran # (Auto) 0.02 K/uL (0.01-0.20) 12/16/23 23:51 PT 11.3 Seconds (9.0-12.0) 12/16/23 23:51 INR 1.0 (0.9-1.1) 12/16/23 23:51 APTT 27 Seconds (21-31) 12/16/23 23:51 PTT Ratio 1.0 12/16/23 23:51 Sodium 132 mmol/L (136-145) L 12/16/23 23:51 Potassium 3.3 mmol/L (3.5-5.1) L 12/16/23 23:51 Chloride 98 mmol/L (98-107) 12/16/23 23:51 Carbon Dioxide 26 mmol/L (21-32) 12/16/23 23:51 Anion Gap 8 (3-11) 12/16/23 23:51 BUN 24 mg/dl (6-23) H 12/16/23 23:51 Creatinine 0.86 mg/dl (0.6-1.2) 12/16/23 23:51 Est Cr Clr Drug Dosing Not Reportable 12/16/23 23:51 Est GFR ( Amer) 69.4 ml/min 12/16/23 23:51 Est GFR (Non-Af Amer) 59.9 ml/min 12/16/23 23:51 BUN/Creatinine Ratio 27.9 (10-20) H 12/16/23 23:51 Glucose 109 mg/dl (70-99(Fasting)) H 12/16/23 23:51 Calcium 9.5 mg/dl (8.6-10.3) 12/16/23 23:51 Total Bilirubin 0.5 mg/dl (0.2-1.0) 12/16/23 23:51 AST 15 U/L (13-39) 12/16/23 23:51 ALT 10 U/L (7-52) 12/16/23 23:51 Alkaline Phosphatase 102 U/L (34-104) 12/16/23 23:51 Troponin I High Sens 4.6 pg/ml (0-14) 12/16/23 23:51 Total Protein 7.4 gm/dl (6.0-8.3) 12/16/23 23:51 Albumin 4.1 gm/dl (3.4-5.0) 12/16/23 23:51 Globulin 3.3 gm/dl (2.5-4.0) 12/16/23 23:51 Albumin/Globulin Ratio 1.2 (0.9-2) 12/16/23 23:51 Code Status & VTE Plan VTE Prophylaxis Plan VTE Prophylaxis will be ordered: Yes
[2023-12-17] MEDS ORDERED: ACETAMINOPHEN 325 MG TAB PO PRN (03:41)
[2023-12-17] MEDS ORDERED: NITROGLYCERIN SL 0.4 MG/TAB TAB SL PRN (03:41)
[2023-12-17] MEDS: SODIUM CHLORIDE 0.65% NA SOLN 45 ML (OCEAN) SCH (04:09)
--- OUTSIDE RECORDS SUMMARY | 2023-12-17 06:24 | External Medical Summary | Summary of Care ---
Author Name Unknown Organization [facility] Address [address] [place] [address] Phone [phone] Care Team Providers Care Vehicle Delivery Worker Name Role Phone Arlen Reveles DO Primary Care Provider + [phone] Reason for Visit * Reason Onset Date Comments Appointment 11/18/2023 Rescheduled pcp appt Encounter Details Date Type Department Care Team (Late st Contact Info) Description 11/18/2023 Telephone Family Practice [address] [facility], [place] [address] [place] [address] Arlen Reveles DO [address] [place], [place] [phone] Appointment (Rescheduled pcp appt) Allergies Active Allergy Reactions Criticality Noted Date Comments Amoxicillin 09/01/2005 Rash Loratadine-Pseudoephedrin e Er 05/17/2020 rash Hydrocodone Nausea/vomiting High 02/08/2021 Prednisone 05/10/2008 Elevated BP Sulfa Antibiotics 05/02/2013 Urticaria and pruritis. documented as of this encounter (statuses as of 11/18/2023) Medications Medication Sig Dispensed Refills Start Date End Date Status MUCINEX 600 MG PO TB12 as needed 0 Active SALINE 0.4 % NA SOLN Twice daily for sinus 0 Active Vitamin C 250 MG Oral Tablet (Ascorbic Acid) Take 1 Tablet by mouth in the morning. 0 Active Vitamin D 25 MCG (1000 UT) Oral Tablet Take by mouth. 0 Active Vitamin B-12 1000 MCG Oral Tablet Take 1 Tablet by mouth in the morning. 0 Active ICaps AREDS Formula Oral Tablet Take twice daily with food 0 11/15/2022 Active Calcium Carbonate 600 MG Oral Tablet Take 1 Tablet by mouth every evening. 0 Active Felodipine ER 5 MG Oral Tablet Extended Release 24 Hour (Plendil) TAKE ONE TABLET BY MOUTH IN THE MORNING 100 Tablet 3 12/31/2022 02/11/2024 Active Sertraline HCl 25 MG Oral Tablet (Zoloft) Take one and one-half tablets by mouth in the morning. 135 Tablet 1 09/03/2023 Active LORazepam 0.5 MG Oral Tablet (Ativan)Indications :THADDEUS (generalized anxiety disorder) Take 1 Tablet by mouth every 8 hours as needed for Anxiety. 90 Tablet 0 10/10/2023 Active documented as of this encounter (statuses as of 11/18/2023) Active Problems Problem Noted Date Diagnosed Date Sjogren's syndrome without extraglandular involv ement 02/12/2020 THADDEUS (generalized anxiety disorder) 12/14/2019 Left asymmetrical SNHL 04/18/2018 HTN, goal below 130/80 08/03/2009 Overview: Modified per HTN protocol #16. Generalized osteoarthritis 06/18/2003 Senile osteoporosis documented as of this encounter (statuses as of 11/18/2023) Resolved Problems Problem Noted Date Diagnosed Date Resolved Date Other chronic sinusitis 04/18/201810/18 Carpal tunnel syndrome of left wrist 03/05/2018 11/11/2020 Allergic rhinitis 12/30/2017 11/13/2021 Primary osteoarthritis of both hands 09/04/2016 11/11/2020 Hemorrhoids, external without complications 06/19/2014 06/19/2017 Piles (hemorrhoids) 06/19/2014 06/19/20 17 Dyslipidemia, goal LDL below 160 11/19/2013 12/30/2017 Dyslipidemia, goal to be determined 08/25/2009 11/19/2013 Overview: Per Lipid Taxonomy. Osteoporosis 04/29/2009 11/07/2011 Urticaria 05/10/2008 06/02/2018 ADVANCE DIRECTIVE INFORMATION 09/01/2005 11/11/2020 Overview: Yes, Patient instructed to provide copy of advance directive for provider to review and to be scanned into Electronic Medical Record BENIGN NEOPLASM LG BOWEL 11/11/2000 HYPERTENSION NOS 08/04/2009 Overview: Modified per HTN protocol #16. PURE HYPERCHOLESTEROLEM 08/16 Overview: Per Lipid Taxonomy. Menopause 06/19/2017 documented as of this encounter (statuses as of 11/18/2023) Immunizations Name Administration Dates Next Due COVID-19 mRNA, LNP-s, No Pre serve, 2-Dose Series (Pfizer) 09/19/2021,01/03/2021,12/13/2020 Pneumococcal Conjugate Vacc, 13 Valent (Prevnar) 06/01/2015 Pneumococcal Polysaccharide PPV23 (Pneumovax) 06/21/2008 Seasonal Influenza Virus Vac cine, Unspecified Formulation 06/21/2020,07/06/2019,06/02/2018,05/27,06/13/2016,05/26/2014,06/12/2013 ,06/13/2012,06/07/2011,06/07/2010,08/18,06/21/2008,07/09/2007, 6,06/28/2005,08/03/2004,06/18/2003,,07/31/2000,07/03/1999 Seasonal Influenza, PF, 6 M & above, IM , (FluLaval or Fluzone) 06/21/2020,06/02/2018 Seasonal Influenza, Quadriva lent Hd (Fluzone Hd) 06/18/2023,05/29/2022,06/22/2021 Seasonal Influenza, Quadriva lent, No Preserve, IM 05/27/2017,06/13/2016,06/22/2015 Seasonal Influenza, Split, I IV3, With Preserve, Inj 05/26/2014,06/12/2013,06/13/2012,06/07,06/07/2010,09/14/2009,06/21/2008 ,07/09/2007,07/04/2006 Seasonal Influenza, Trivalen t, Adjuvanted, 65+ yrs 07/06/2019 TDAP (age 10 and older)(Boostrix) 11/15/2022, Varicella Zoster Vaccine (Adult) 06/13/2012 Zoster Vaccine Recombinant (Shingrix) 04/20/2019 ,01/01/2019 documented as of this encounter Social History Tobacco Use Types Packs/Day Years Used Date Smoking Tobacco: Never Smokeless Tobacco: Never Comments:no passive smoke ex posures Alcohol Use Standard Drinks/Week Comments Yes 0 (1 standard drink = 0.6 oz pur e alcohol) Very rare PHQ-2 Answer Date Recorded PHQ Adult Total Score 0 09/25/2023 Hunger Vital Sign Answer Date Recorded Within the past 12 months, y ou worried that your food would run out before you got the money to buy more. Never true 09/25/19 Within the past 12 months, t he food you bought just didn't last and you didn't have money to get more. Never true 09/25/2023 Sex and Gender Information Value Date Recorded Sex Assigned at Female 12/22/2018 9:48 AM EDT Gender Identity Female 12/22/2018 9:48 AM EDT Sexual Orientation Straight 12/22/2018 9: 48 AM EDT Job Start Date Occupation Industry Not on file Not on file Not on file documented as of this encounter Miscellaneous Notes * Telephone Encounter - Dasha Maier OSA - 11/18/2023 3:06 PM EST Rescheduled 5.20.[address] Reveles to 6.7.24, both at 11:20 am. Called to advise of change, however; the line is busy. Attempted three times, will try later. documented in this encounter Plan of Treatment Upcoming Encounters Date Type Department Care Team (Late st Contact Info) Description 02/21/2024 11:20 AM EDT Office Visit Family Practice [address], [place] [address] [place] [phone] Arlen Reveles DO [address] [facility] [place] [address] 06/17/2024 3:20 PM EDT Office Visit Rheumatology [facility] [address] [facility] [place] [address] Del Johnson MD [address] [facility] [place] [address] Health Maintenance Due Date Last Done Comments COVID-19 Vaccine (2022-24 season) 2023 09/19/2021, 01/03/2021, 12/13/2020 Depression Screening 09/25/2024 09/25/2023 DXA Scan 10/22/2024 10/22/2022, 0202/2023, 03/08/2020, Additional history exists Albumin/Creatinine Ratio 08/04/2025 08/04/2022 DTaP,Tdap,and Td Vaccines (3 - Td or Tdap) 11/15/2032 11/15/2022, 05/07/2012, 12/29/2004, Additional history exists Pneumococcal Vaccine: 65+ Years Completed 06/01/2015, 06/21/2008, 03/31/1999 Zoster Vaccines Completed 04/20/2019, 12/15, 06/13/2012 Influenza Vaccine (FLU shot) Completed 11/2022, 05/29/2022, 06/22/2021, Additional history exists VITAMIN D LEVEL ONCE IN A LIFETIME-USE SMARTSET# [id number] Completed 08/01/2023, 06/22/2021, 11/03/2010, Additional history exists GARDASIL-HPV IMMUNIZATION SERIES Aged Out No longer eligible based on patient's age to complete this topic Hepatitis B Aged Out No longer eligi ble based on patient's age to complete this topic MENINGOCOCCAL (MENACTRA/MENVEO) Aged Out No longer eligible based on patient's age to complete this topic documented as of this encounter Medical Devices Not on filedocumented as of this encounter Care Teams Vehicle Delivery Worker Relationship Specialty Start Date End Date Arlen Reveles DO [address] [place] [address] PCP - General Family Medicine 11/15/22 documented as of this encounter
--- OUTSIDE RECORDS SUMMARY | 2023-12-17 06:24 | External Medical Summary | Summary of Care ---
Author Name Unknown Organization [facility] Address [address] [place] [address] Phone [phone] Care Team Providers Care Analog Design Engineer Name Role Phone Arlen Reveles DO Primary Care Provider + [phone] Reason for Visit * Reason Onset Date Comments Appointment 11/18/2023 Rescheduled pcp appt Encounter Details Date Type Department Care Team (Late st Contact Info) Description 11/18/2023 Telephone Family Practice [address] [facility] [place] [address] [place] [address] Arlen Reveles DO [address] [place], [place] [phone] Appointment (Rescheduled pcp appt) Allergies Active Allergy Reactions Criticality Noted Date Comments Amoxicillin 09/01/2005 Rash Loratadine-Pseudoephedrin e Er 05/17/2020 rash Hydrocodone Nausea/vomiting High 02/08/2021 Prednisone 05/10/2008 Elevated BP Sulfa Antibiotics 05/02/2013 Urticaria and pruritis. documented as of this encounter (statuses as of 11/26/2023) Medications Medication Sig Dispensed Refills Start Date [...] 09/03/2023 Active LORazepam 0.5 MG Oral Tablet (Ativan)Indicatio ns:THADDEUS (generalized anxiety disorder) Take 1 Tablet by mouth every 8 hours as needed for Anxiety. 90 Tablet 0 10/10/2023 11/18/2023 Discontinued (Refill) documented as of this encounter (statuses as of 11/26/2023) Active Problems Problem Noted Date Diagnosed Date Sjogren's syndrome without extraglandular involv ement 02/12/2020 THADDEUS (generalized anxiety disorder) 12/14/2019 Left asymmetrical SNHL 04/18/2018 HTN, goal below 130/80 08/03/2009 Overview: Modified per HTN protocol #16. Generalized osteoarthritis 06/18/2003 Senile osteoporosis documented as of this encounter (statuses as of 11/26/2023) Resolved Problems Problem Noted Date Diagnosed Date [...] as of this encounter (statuses as of 11/26/2023) Immunizations Name Administration Dates Next Due COVID-19 mRNA, LNP-s, No Pre serve, 2-Dose Series (Pfizer) 09/19/2021,01/03/2021,12/13/2020 Pneumococcal Conjugate Vacc, 13 Valent (Prevnar) 06/01/2015 Pneumococcal Polysaccharide PPV23 (Pneumovax) 06/21/2008,03/31/1999 Seasonal Influenza Virus Vac cine, Unspecified Formulation 06/21/2020,07/06/2019,06/02/2018,05/27,06/13/2016,05/26/2014,06/12/2013 ,06/13/2012,06/07/2011,06/07/2010,08/18,06/21/2008,07/09/2007, 6,06/28/2005,08/03/2004,06/18/2003,,07/31/2000,07/03/1999 Seasonal Influenza, PF, 6 M & above, IM , (FluLaval or Fluzone) 06/21/2020,06/02/2018 Seasonal Influenza, Quadriva lent Hd (Fluzone Hd) 06/18/2023,05/29/2022,06/22/2021 Seasonal Influenza, Quadriva lent, No Preserve, IM 05/27/2017,06/13/2016,06/22/2015 Seasonal Influenza, Split, I IV3, With Preserve, Inj 05/26/2014,06/12/2013,06/13/2012,06/07,06/07/2010,09/14/2009,06/21/2008 ,07/09/2007,07/04/2006,06/28/2005,07/17,06/18/2003,07/14/2002, 0,07/03/1999 Seasonal Influenza, Trivalen t, Adjuvanted, 65+ yrs 07/06/2019 TD - Tetanus/Diptheria (ADULT) 02/14/1991 TD, Preservative Free 12/29/2004 TDAP (age 10 and older)(Boostrix) 11/15/2022, Varicella [...] money to buy more. Never true 09/25/19 24 Within the past 12 months, t he [...] Telephone Encounter - Dasha Maier OSA - 11/26/2023 2:35 PM EDT Pt aware * Telephone Encounter - Dasha Maier OSA [...] EDT Office Visit Family Practice [address], [place] [address] [facility] [place] [address] Arlen Reveles DO [address] [place] [address] 06/17/2024 3:20 PM EDT Office Visit Rheumatology [facility] [address] [place] [address] Del Johnson MD [address] [place] [address] Health Maintenance Due Date Last Done Comments COVID-19 Vaccine ( season) 2023 09/19/2021, 01/03/2021, 12/13/2020 Depression Screening 09/25/2024 09/25/2023 DXA Scan 10/22/2024 10/22/2022, 02/2023, 03/08/2020, Additional history exists Albumin/Creatinine Ratio 08/04/2025 08/04/2022 DTaP,Tdap,and Td Vaccines (3 - Td or Tdap) 11/15/2032 11/15/2022, 05/07/2012, 12/29/2004, Additional history exists Pneumococcal Vaccine: 65+ Years Completed 06/01/2015, 06/21/2008, 03/31/1999 Zoster Vaccines Completed 04/20/2019, 12/15, 06/13/2012 Influenza Vaccine (FLU shot) Completed 11/2022, 05/29/2022, 06/22/2021, Additional history exists VITAMIN D LEVEL ONCE IN A LIFETIME-USE SMARTSET# [id number] Completed 08/01/2023, 06/22/2021, 11/03/2010, Additional history exists [...] filedocumented as of this encounter Care Teams Analog Design Engineer Relationship Specialty Start Date End Date Arlen Reveles DO [address] [place] [address] PCP - General Family Medicine 11/15/22 documented as of this encounter
--- OUTSIDE RECORDS SUMMARY | 2023-12-17 06:24 | External Medical Summary | Summary of Care ---
Author Name Unknown Organization [facility] Address [address] [place] [address] Phone [phone] Care Team Providers Care Pc Maintenance Technician Name Role Phone Arlen Helton DO Primary Care Provider + [phone] Reason for Visit * Reason Onset Date Comments Medication Refill 11/18/2023 Encounter Details Date Type Department Care Team (Late st Contact Info) Description 11/18/2023 Refill Family Practice [address], [place] [address] [place] [phone] Arlen Helton DO [address] [place] [address] THADDEUS (generalized anxiety disorder) Allergies Active Allergy Reactions Criticality Noted Date Comments Amoxicillin 09/01/2005 Rash Loratadine-Pseudoephedrin e Er 05/17/2020 rash Hydrocodone Nausea/vomiting High 02/08/2021 Prednisone 05/10/2008 Elevated BP Sulfa Antibiotics 05/02/2013 Urticaria and pruritis. documented as of this encounter (statuses as of 11/19/2023) Medications Medication Sig Dispensed Refills Start Date [...] as needed for Anxiety. 90 Tablet 0 11/19/2023 Active LORazepam 0.5 MG Oral Tablet (Ativan)Indicatio ns:THADDEUS (generalized anxiety disorder) Take 1 Tablet by mouth every 8 hours as needed for Anxiety. 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 Generalized osteoarthritis 06/18/2003 Senile osteoporosis documented as of this encounter (statuses as of 11/19/2023) Resolved Problems Problem Noted Date Diagnosed Date [...] as of this encounter (statuses as of 11/19/2023) Immunizations Name Administration Dates Next Due COVID-19 [...] encounter Miscellaneous Notes * Telephone Encounter - Arlen Helton DO - 11/19/2023 2:48 PM ESTSigned Prescriptions: Disp Refills LORazepam 0.5 MG Oral Tablet (Ativan) 90 Tab*0 Sig: Take 1 Tablet by mouth every 8 hours as needed for Anxiety.Authorizing Provider: ARLEN HELTON * Telephone Encounter - Arlen Helton DO - 11/19/2023 2:47 PM EST Rx sent. I have reviewed the patients controlled substance dispensing history in the Prescription Drug Monitoring Program in compliance with the [facility] regulations before prescribing a controlled substance. Last Tox Screen Results: No results found for this or any previous visit. * Telephone Encounter - Del Sanchez [facility] - 11/19/2023 2:38 PM ESTPending Prescriptions: Disp Refills LORazepam 0.5 MG Oral Tablet (Ativan) 90 Tab*0 Sig: Take 1 Tablet by mouth every 8 hours as needed for Anxiety. * Telephone Encounter - Del Sanchez [facility] - 11/19/2023 2:38 PM EST I have reviewed the patients controlled substance dispensing history in the Prescription Drug Monitoring Program in compliance with the [facility] regulations before prescribing a controlled substance. PDMP checked on 11/19/2023. Pending Prescriptions: Disp Refills LORazepam 0.5 MG Oral Tablet (Ativan) 90 Tab*0 Sig: Take 1 Tablet by mouth every 8 hours as needed for Anxiety. Last Visit: 10/30/2023 (in office), Visit date not found (telemedicine) Next Visit: 02/21/2024 Date medication was last filled: 10-11-23 Date medication is due for refill: 11-09-23 Pharmacy: [facility] Is this request for a controlled substance? Yes and Urine Drug Screen Not completed Toxicology results: No results found for this or any previous visit. Please approve if appropriate. Thanks, Del Sanchez, James.Ph. Clinical Pharmacist [facility] [phone] ext [phone] 11/19/2023,2:38 PM * Telephone Encounter - Gloria Dodson CPhT - 11/18/2023 10:06 AM EST Did you pend patient's preferred pharmacy and medication before forwarding?yes Pharmacy: [facility] Pending Prescriptions: Disp Refills LORazepam 0.5 MG Oral Tablet (Ativan) 90 Tab*0 Sig: Take 1 Tablet by mouth every 8 hours as needed for Anxiety. Last Visit: 10/30/2023 (in office), Visit date not found (telemedicine) Next Visit: 02/03/2024 If no future appointments scheduled, and last appointment is greater than a year ago, please schedule patient for a follow-up appointment Last date the medication was ordered: 10/10/2023 Is this request for a controlled substance?Yes, What was the last refill date 10/10/2023 w/ [id number] and dosage 0.5mg and Urine Drug Screen Not completed Urine Drug Screen:No results found for this or any previous visit. Patient Phone Numbers Labs: Lab Results Component Value Date/Time CREAT 0.7 08/19/2023 11:26 AM CREAT 0.55 (A) 11/21/2021 12:00 AM CREAT 0.7 03/08/2020 08:36 AM POTASSIUM 4.5 08/19/2023 11:26 AM POTASSIUM 3.5 11/21/2021 12:00 AM POTASSIUM 3.9 03/08/2020 08:36 AM POTASSIUM 4.1 12/04/1996 09:25 AM TSH 2.690 04/16/2018 12:00 AM TSH 2.59 11/03/2010 10:15 AM LDLCALC 133 (H) 08/01/2023 01:51 PM LDLCALC 140 (H) 11/28/2015 09:06 AM LDLDIRECT 144 (H) 11/03/2010 10:15 AM ALT 14 08/01/2023 01:51 PM ALT 11 11/24/2014 10:02 AM HGBA1C 5.4 03/08/2020 08:36 AM documented in this encounter Plan of Treatment Upcoming Encounters Date Type Department Care Team (Late st Contact Info) Description 02/21/2024 11:20 AM EDT Office Visit Family Practice [address] [place] [address], [place] [address] [place] [address] Arlen Helton DO 293 [facility] [place] [address] 06/17/2024 3:20 PM EDT Office Visit Rheumatology [facility] [address] [place] [address] Del Johnson MD [address] [place] [address] Health Maintenance Due Date Last Done Comments [...] D LEVEL ONCE IN A LIFETIME-USE SMARTSET# [id number] Completed 08/01/2023, 06/22/2021, 11/03/2010, Additional history exists [...] Not on filedocumented as of this encounter Visit Diagnoses Diagnosis THADDEUS (generalized anxiety disorder) Generalized anxiety disorder documented in this encounter Care Teams Pc Maintenance Technician Relationship Specialty Start Date End Date Arlen Helton DO [address] [place] [address] PCP - General Family Medicine 11/15/22 documented as of this encounter
--- OUTSIDE RECORDS SUMMARY | 2023-12-17 06:25 | External Medical Summary | Summary of Care ---
Author Name Unknown Organization [facility] Address [address] [place] [address] Phone [phone] Care Team Providers Care [employer] Crewmember Name Role Phone Arlen Reveles DO Primary Care Provider + [phone] Reason for Visit * Reason Onset Date Comments Test Results 09/05/202309/05 Encounter Details Date Type Department Care Team (Late st Contact Info) Description 09/05/2023 Telephone Family Practice [address] [facility], [place] [address] [place] [address] Arlen Reveles DO [address] [place] [address] Test Results (09/05) Allergies Active Allergy Reactions Criticality Noted Date Comments Amoxicillin 09/01/2005 Rash Loratadine-Pseudoephedrin e Er 05/17/2020 rash Hydrocodone Nausea/vomiting High 02/08/2021 Prednisone 05/10/2008 Elevated BP Sulfa Antibiotics 05/02/2013 Urticaria and pruritis. documented as of this encounter (statuses as of 09/05/2023) Medications Medication Sig Dispensed Refills Start Date [...] IN THE MORNING 100 Tablet 3 12/31/2022 12/31/2023 Active Nystatin 932074 UNIT/GM External CreamIndications:C andidal skin infection APPLY TOPICALLY TO AFFECTED AREA TWO TIMES A DAY 30 g 2 11/15/2022 11/15/2023 Active LORazepam 0.5 MG Oral Tablet (Ativan)Indication s:THADDEUS (generalized anxiety disorder) Take 1 Tablet by mouth every 8 hours as needed for Anxiety. 90 Tablet 0 08/21/2023 Active Sertraline HCl 25 MG Oral Tablet (Zoloft) Take one and one-half tablets by mouth in the morning. 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 Generalized osteoarthritis 06/18/2003 Senile osteoporosis documented as of this encounter (statuses as of 09/05/2023) Resolved Problems Problem Noted Date Diagnosed Date [...] as of this encounter (statuses as of 09/05/2023) Immunizations Name Administration Dates Next Due COVID-19 mRNA, LNP-s, No Pre serve, 2-Dose Series (Stereotypes) 09/19/2021,01/03/2021,12/13/2020 Pneumococcal Conjugate Vacc, 13 Valent (Prevnar) [...] Date Recorded PHQ Adult Total Score 0 08/01/2023 Hunger Vital Sign Answer Date Recorded Within the past 12 months, y ou worried that your food would run out before you got the money to buy more. Never true 08/01/20 23 Within the past 12 months, t he food you bought just didn't last and you didn't have money to get more. Never true 08/01/2023 Sex and Gender Information Value Date Recorded Sex Assigned at Female 12/22/2018 9:48 AM EDT Gender Identity Female 12/22/2018 9:48 AM EDT Sexual Orientation Straight 12/22/2018 9: 48 AM EDT Job Start Date Occupation Industry Not on file Not on file Not on file documented as of this encounter Miscellaneous Notes * Telephone Encounter - Genie Moulton LPN - 09/05/2023 9:08 AM EST Call placed to patient and relayed information from Dr. Reveles. Patient acknowledged understanding. No further questions at this time. * Telephone Encounter - Genie Moulton LPN - 09/05/2023 9:06 AM EST ----- Message from Arlen Reveles DO sent at 09/05/2023 9:02 AM EST ----- Your recent mammogram was normal. You can continue to follow with a regular screening mammogram in 1 year. Take Care, ~Dr. Reveles documented in this encounter Plan of Treatment Upcoming Encounters Date Type Department Care Team (Late st Contact Info) Description 10/30/2023 11:20 AM EST Office Visit Family Practice [address] [place] [address] 293 [place] [address] Arlen Reveles DO 293 [facility] [place] [address] 06/17/2024 3:20 PM EDT Office Visit Rheumatology [facility] [address] [place] [address] Del Johnson MD [address] [place], [place] [address] Health Maintenance Due Date Last Done Comments COVID-19 Vaccine ( season) 2023 09/19/2021, 01/03/2021, 12/13/2020 Depression Screening 08/01/2024 08/01/2023 DXA Scan 10/22/2024 10/22/2022, 02/15, 01/04/2015, Additional history exists Albumin/Creatinine Ratio 08/04/2025 08/04/2022 DTaP,Tdap,and Td Vaccines (3 - Td or Tdap) 11/15/2032 11/15/2022, 05/07/2012, 12/29/2004, Additional history exists Pneumococcal Vaccine: 65+ Years Completed 06/01/2015, 06/21/2008, 03/31/1999 Zoster Vaccines Completed 04/20/2019, 12/15, 06/13/2012 Influenza Vaccine (FLU shot) Completed 11/2022, 05/29/2022, 06/22/2021, Additional history exists VITAMIN D LEVEL ONCE IN A LIFETIME-USE SMARTSET# [id number] Completed 08/01/2023, 06/22/2021, 11/03/2010, Additional history exists [...] filedocumented as of this encounter Care Teams [employer] Crewmember Relationship Specialty Start Date End Date Arlen Reveles DO [address] [place] [address] PCP - General Family Medicine 11/15/22 documented as of this encounter
--- OUTSIDE RECORDS SUMMARY | 2023-12-17 06:25 | External Medical Summary | Summary of Care ---
Author Name Unknown Organization [facility] Address [address] [place] [address] Phone [phone] Care Team Providers Care Cashier Courtesy Booth Name Role Phone Arlen Reveles DO Primary Care Provider + [phone] Reason for Visit * Reason Onset Date Comments Advice 09/24/2023 appt Information 09/24/202309/24 Encounter Details Date Type Department Care Team (Late st Contact Info) Description 09/24/2023 Telephone Family Practice [address], [place] [address] [place] [phone] Arlen Reveles DO [address] [place], [place] [phone] Advice (appt); Information (09/24) Allergies Active Allergy Reactions Criticality Noted Date Comments Amoxicillin 09/01/2005 Rash Loratadine-Pseudoephedrin e Er 05/17/2020 rash Hydrocodone Nausea/vomiting High 02/08/2021 Prednisone 05/10/2008 Elevated BP Sulfa Antibiotics 05/02/2013 Urticaria and pruritis. 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 Generalized osteoarthritis 06/18/2003 Senile osteoporosis documented as of this encounter (statuses as of 09/24/2023) Resolved Problems Problem Noted Date Diagnosed Date [...] as of this encounter (statuses as of 09/24/2023) Immunizations Name Administration Dates Next Due COVID-19 [...] Miscellaneous Notes * Telephone Encounter - Arlen Reveles DO - 09/24/2023 8:55 AM EST Noted. * Telephone Encounter - Genie Moulton LPN - 09/24/2023 8:45 AM EST Call placed to patient for details. Patient reports she had a dizzy spell yesterday and called EMS.States dizziness resolved by the time EMS arrived - was not taken to ED. States vitals from EMS 163/70, HR 78. States she took a Meclizine which was prescribed by Dr. Mckoy in the past. Reports she takes Lorazepam twice a day for anxiety. States she feels dizziness was related to her nerves. Also reports chronic mild pain above her left ear. States no dizziness today. Pt unable to come for appt today; requested appt tomorrow. Agreeable to 0940 OV - appt scheduled. * Telephone Encounter - Dasha Field OSA - 09/24/2023 8:26 AM EST Is having more dizzy spells Had EMS out there last night Vitals ok, she was told to call her PCP Wants an appointment tomorrow, she can't do the early appointments Please call and advise documented in this encounter Plan of Treatment Upcoming Encounters Date Type Department Care Team (Late st Contact Info) Description 09/25/2023 9:40 AM EST Office Visit Family Practice [address] [place] [address] [address] [place] [address] Arlen Reveles, [address] [place] [address] 10/30/2023 11:20 AM EST Office Visit Family Practice [address] [place] [address] [address] [place] [address] Arlen Reveles DO [address] [place] [address] 06/17/2024 3:20 PM EDT Office Visit Rheumatology [facility] [address] [place], [place] [address] Del Johnson MD [address] [place], [place] [address] Health Maintenance Due Date Last Done Comments COVID-19 Vaccine (2022- season) 2023 09/19/2021, 01/03/2021, 12/13/2020 Depression Screening [...] D LEVEL ONCE IN A LIFETIME-USE SMARTSET# [id number] Completed 08/01/2023, 06/22/2021, 11/03/2010, Additional history exists [...] filedocumented as of this encounter Care Teams Cashier Courtesy Booth Relationship Specialty Start Date End Date Arlen Reveles DO [address] [place] [address] PCP - General Family Medicine 11/15/22 documented as of this encounter
--- OUTSIDE RECORDS SUMMARY | 2023-12-17 06:25 | External Medical Summary | Summary of Care ---
Author Name Unknown Organization [facility] Address [address] [place] [address] Phone [phone] Care Team Providers Care Irrigation Foreman Name Role Phone Arlen Reveles DO Primary Care Provider + [phone] Reason for Visit * Reason Comments Acute Encounter Details Date Type Department Care Team (Latest Contact Info) Description 09/25/2023 9:40 AM EST Office Visit Family Practice [address] [place] [address] [place] [address] Arlen Reveles DO [address] [place] [address] Dizziness*; THADDEUS (generalized anxiety disorder); Hypertension with goal blood pressure less than 140/90; Senile osteoporosis; Sjogren's syndrome without extraglandular involvement (HCC); Risk and functional assessment Allergies Active Allergy Reactions Criticality Noted Date Comments Amoxicillin 09/01/2005 Rash Loratadine-Pseudoephedrin e Er 05/17/2020 rash Hydrocodone Nausea/vomiting High 02/08/2021 Prednisone 05/10/2008 Elevated BP Sulfa Antibiotics 05/02/2013 Urticaria and pruritis. documented as of this encounter (statuses as of 09/25/2023) Medications Medication Sig Dispensed Refills Start Date [...] 100 Tablet 3 12/31/2022 12/31/2023 Active Nystatin [id number] UNIT/GM External CreamIndications:C andidal skin infection APPLY [...] as of this encounter (statuses as of 09/25/2023) Active Problems Problem Noted Date Diagnosed Date Sjogren's syndrome without extraglandular involv ement 02/12/2020 THADDEUS (generalized anxiety disorder) 12/14/2019 Left asymmetrical SNHL 04/18/2018 HTN, goal below 130/80 08/03/2009 Overview: Modified per HTN protocol #16. Generalized osteoarthritis 06/18/2003 Senile osteoporosis documented as of this encounter (statuses as of 09/25/2023) Resolved Problems Problem Noted Date Diagnosed Date [...] as of this encounter (statuses as of 09/25/2023) Immunizations Name Administration Dates Next Due COVID-19 [...] Date Smoking Tobacco: Never Smokeless Tobacco: Never Tobacco Cessation:Counseling Given: Yes Comments:no passive smoke exposures Alcohol Use Standard Drinks/Week Comments Yes 0 [...] on file documented as of this encounter Last Filed Vital Signs Vital Sign Reading Time Taken Comments Blood Pressure 126/70 09/25/2023 11:11 AM EST Pulse 92 09/25/2023 11:11 AM EST Temperature 36.6 C (97.9 F) 09/25/2023 9:59 AM ES T Respiratory Rate 14 09/25/2023 9:59 AM EST Oxygen Saturation 98% 09/25/2023 11:11 AM EST Inhaled Oxygen Concentration - - Weight 50.1 kg (110 lb 8 oz) 09/25/2023 9:59 AM EST Height 148.6 cm (4' 10.5") 09/25/2023 9:59 AM ES T Body Mass Index 22.7 09/25/2023 9:59 AM EST documented in this encounter Patient Instructions * Patient Instructions* Genie MoultonFRANSISCON - 09/25/2023 9:57 AM EST Patient Instructions - Fall Prevention (This education is for all patients over 65 regardless of symptoms) Remember to take your current medications as prescribed. In order to prevent falls, you are encouraged to: Exercise Utilize assistive/adaptive devices Avoid multifocal lenses when walking Avoid hazards in home Maintain a regular toileting schedule Any questions please contact our office. Preventing Falls in the Home (This education is for all patients over 65 regardless of symptoms) As you get older, falls are more likely. Thats because your reaction time slows. Your muscles and joints may also get stiffer, making them less flexible. Illness, medications, and vision changes can also affect your balance. A fall could leave you unable to live on your own. To make your home safer, follow these tips: Floors Put nonskid pads under area rugs Remove throw rugs Replace worn floor coverings Tack carpets firmly to each step on carpeted stairs. Put nonskid strips on the edges of uncarpeted stairs Keep floors and stairs free of clutter and cords Arrange furniture so there are clear pathways Clean up any spills right away Bathrooms Install grab bars in the tub or shower Apply nonskid strips or put a nonskid rubber mat in the tub or shower Sit on a bath chair to bathe Use bathmats with nonskid backing Lighting Keep a flashlight in each room Put a nightlight along the pathway between the bedroom and the bathroom [employer] Patient Education Copyright 2008 - 2010 Han except where otherwise noted Preventing Falls: Exercises to Improve Balance, Flexibility, Strength, and Staying Power (This education is for all patients over 65 regardless of symptoms) Certain types of exercises may help make you less likely to fall. Try the ones below. Or do other exercises that your healthcare provider suggests. Depending on your health, you may need to start slowly. Dont let that stop you. Even small amounts of exercise can help you. Be sure to talk to yourhealthcare provider before starting any exercise program. Improve Balance Many types of exercise can help improve balance. Gustavo chi and yoga are good examples. Heres another one to try. You can do it anytime and almost anywhere. Stand next to a counter or solid support. Push yourself up onto your tiptoes. Hold for 5 seconds. If you start to lose your balance, hold on to the counter. Rest and repeat 5 times. Work up to holding for 20 to 30 seconds, if you can. Increase Flexibility Being more flexible makes it easier for you to move around safely. Try exercises like the seated hamstring stretch. Sit in a chair and put one foot on a stool. Straighten your leg and reach with both hands down either side of your leg. Reach as far down your leg as you can. Hold for about 20 seconds. Go back to the starting position. Then repeat 5 times. Switch legs. Build Strength Resistance exercises help build strength. You can do them without equipment. Or you can use weights, elastic bands, or special machines. One such exercise is called the biceps curl. You can hold a 1 pound weight or even a can of soup. Do this exercise at least 3 times a week. Strive for everyday. Sit up straight in a chair. Keep your elbow close to your body and your wrist straight. Bend your arm, moving your hand up to your shoulder. Then slowly lower your arm. Repeat 5 times. Switch to the other arm. Build Your Staying Power Aerobic exercises make your heart and lungs stronger so you can keep moving longer. Walking and swimming are two of the best types of exercises you can do. Using a stationary bike is great, too. Find an aerobic exercise that you enjoy. Start slowly and build up. Even 5 minutes is helpful. Aimfor a goal of 30 minutes, at least 3 times a week. You dont have to do 30 minutes in one session. Break it up and walk a little throughout the day. More Helpful Tips Start easy. Slowly work up to doing more. Talk with your healthcare provider about the best exercises for you. Call senior centers or health clubs about exercise programs. If needed, have a family member watch you walk every so often to check your stability. Exercise with a friend. Choose an activity you both enjoy. Try exercises that you can do anytime, anywhere. Here are two examples. Have someone with you when you first try these: Practice walking by placing one foot right in front of the other. Stand up and sit down 10 times. Repeat this throughout the day. Han Patient Education Copyright 2009 - 2010 Han except where otherwise noted. Preventing Falls: Moving Safely Using a Cane or Walker (This education is for all patients over 65 regardless of symptoms) Keep the cane away from your feet so you dont trip. A walking aid, such as a cane or walker, can help you stay more independent and avoid falls. Remember to keep your walking aid within easy reach when youre in a chair or in bed. And learn how to use it safely so you dont injure yourself. Using a Cane If you have a stronger side, hold the cane on that side. Get your balance. Move the cane and your weaker leg forward. Support your weight on both the cane and your weaker side. Step with your stronger leg. Start again from step 1. If youre using a folding walker, be sure you know how to lock it open. Check that its locked open before each use. Using a Walker Roll the walker (or lift it, if youre using one without wheels) forward about 12 inches. Step forward with your weaker leg first. Use the walker to help keep your balance. Bring your other foot forward to the center of the walker. Start again from step 1. Helpful Tips Check with your healthcare provider about the right walking aid to use. Ask about a walker with a seat attached. Check the tips of your cane or walker to make sure they have nonskid covers. Move slowly from room to room. Dont edouard. Sit down to get dressed. Use a marilia pack or backpack to keep your hands free. Get help for jobs that mean climbing, even on a stepstool. Han Patient Education Copyright 2008 - 2010 Han except where otherwise noted. Urinary Incontinence Plan of Care Documentation: (This education is for all patients over 65 regardless of symptoms) Current medications reconciled. Patient encouraged to: Practice kegal exercises Provide education materials Use the restroom every 2 hours throughout the day Limit caffeine, alcohol, spicy foods and acidic foods Keep a bladder diary Limit fluid intake 3-4 hours before bed Lose weight Prevent constipation Take fluid pills at a time when you can get to the bathroom quickly Control sugar better if diabetic Limit fluid intake to 60 oz. per day Wear support stockings (TEDs)if you have edema Genie Moulton LPN 09/25/2023 Kegel Exercises Kegel exercises dont require special clothing or equipment. Theyre easy to learn and simple to do. And if you do them right, no one can tell youre doing them, so they can be done almost anywhere. Your doctor, nurse, or physical therapist can answer any questions you have and help you get started. A Weak Pelvic Floor The pelvic floor muscles may weaken due to aging, and vaginal childbirth, injury, surgery, chronic cough, or lack of exercise. If the pelvic floor is weak, your bladder and other pelvic organs may sag out of place. The urethra may also open too easily and allow urine to leak out. Kegel exercises can help you strengthen your pelvic floor muscles so they can better support the pelvic organs and control urine flow. How Kegel Exercises Are Done Try each of the Kegel exercises described below. When youre doing them, try not to move your leg, buttock, or stomach muscles. While youre urinating, try to stop the flow of urine. Start and stop it as often as you can. Contract as if you were stopping your urine stream, but do it when youre not urinating. Tighten your rectum as if trying not to pass gas. Contract your anus, but dont move your buttocks. Helpful Hints Do your Kegels as often as you can. The more you do them, the faster youll feel the results. Pick an activity you do often as a reminder. For instance, do your Kegels every time you sit down. Tighten your pelvic floor before you sneeze, get up from a chair, cough, laugh, or lift. This protects your pelvic floor from injury and can help prevent urine leakage. Try to hold each Kegel for a slow count to five. You probably wont be able to hold them for thatlong at first, but keep practicing. It will get easier as your pelvic floor gets stronger. Eventually, special weights that you place in your vagina may be recommended to help make your Kegels even more effective. Han Patient Education Copyright 2009 - 2011 Han except where otherwise noted. Here are some helpful tips for your urinary incontinence: (This education is for all patients over 65 regardless of symptoms) Practice Kegel exercises Use the restroom every 2 hours throughout the day Limit caffeine, alcohol, spicy foods, and acidic foods Keep a bladder diary Limit fluid intake 3-4 hours before bed Lose weight Prevent constipation Take fluid pills at a time when can get to the bathroom quickly Control sugar better if diabetic Limit fluid intake to 60 oz. per day Any questions, please feel free to contact our office. documented in this encounter Progress Notes * Genie Moulton LPN - 09/25/2023 11:01 AM EST ekg done as per dr's order 3 positional blood pressures per physician. Supine - 122/70 Sitting - 124/68 Standing - 126/70 Patient tolerated well - no dizziness, lightheadedness, dyspnea reported. * Genie Moulton LPN - 09/25/2023 9:57 AM EST Fall Risk Plan of Care Documentation: - Current medications reconciled Patient encouraged to: - Exercise - Provide education materials for Core strengthening - Utilize assistive/adaptive devices - Provide education materials - Avoid multifocal lenses when walking - Avoid hazards in home - Provide education materials - Maintain a regular toileting schedule Genie Moulton LPN 09/25/2023 Urinary Incontinence Plan of Care Documentation: (This education is for all patients over 65 regardless of symptoms) Current medications reconciled. Patient encouraged to: Practice kegal exercises Provide education materials Use the restroom every 2 hours throughout the day Limit caffeine, alcohol, spicy foods and acidic foods Keep a bladder diary Limit fluid intake 3-4 hours before bed Lose weight Prevent constipation Take fluid pills at a time when you can get to the bathroom quickly Control sugar better if diabetic Limit fluid intake to 60 oz. per day Wear support stockings (TEDs)if you have edema Genie Moulton LPN 09/25/2023 * Arlen Reveles DO - 09/25/2023 9:48 AM EST SUBJECTIVE: Chief Complaint Patient presents with Acute HPI: Lisa Rios is a 88 year old female who presents today with complaints of a fall. She states that she fell in her kitchen on Saturday night. She states that she all of a sudden got dizzy. She states that she went to turn and fell down. She thinks she may have been dizzy before she turned but isnot sure. She took a meclizine and this helped. She hit her elbow and has a bruise. She notes she la nded on her buttocks. She has minimal discomfort there. She notes no chest pain or palpitations. She felt ok otherwise. She called EMS the next day. She states that her friend told her that her BP was going up and she could have a stroke. She notes that she was getting anxious and that brought on her dizziness. She states that she just get anxious about things. She will try to think of things to do to keep her mind off of it. She feels that balancing her check book is what caused her to have issues this time. She notes that she had messed part of it up and couldn't figure things out until thenex day. PHM: Patient Active Problem List Diagnosis Code Generalized osteoarthritis M15.9 HTN, goal below 130/80 I10 Left asymmetrical SNHL [id number] THADDEUS (generalized anxiety disorder) F41.1 Sjogren's syndrome without extraglandular involvement (HCC) M35.00 Senile osteoporosis M81.0 Current Outpatient Medications Medication Sig Dispense Refill MUCINEX 600 MG PO TB12 as needed SALINE 0.4 % NA SOLN Twice daily for sinus Vitamin C 250 MG Oral Tablet (Ascorbic Acid) Take 1 Tablet by mouth in the morning. Vitamin D 25 MCG (1000 UT) Oral Tablet Take by mouth. Vitamin B-12 1000 MCG Oral Tablet Take 1 Tablet by mouth in the morning. ICaps AREDS Formula Oral Tablet Take twice daily with food Calcium Carbonate 600 MG Oral Tablet Take 1 Tablet by mouth every evening. Felodipine ER 5 MG Oral Tablet Extended Release 24 Hour (Plendil) TAKE ONE TABLET BY MOUTH IN THE MORNING 100 Tablet 3 Nystatin 632086 UNIT/GM External Cream APPLY TOPICALLY TO AFFECTED AREA TWO TIMES A DAY 30 g 2 LORazepam 0.5 MG Oral Tablet (Ativan) Take 1 Tablet by mouth every 8 hours as needed for Anxiety. 90 Tablet 0 Sertraline HCl 25 MG Oral Tablet (Zoloft) Take one and one-half tablets by mouth in the morning. 135 Tablet 1 No current facility-administered medications for this visit. Past Medical History: Diagnosis Date Anxiety Dyslipidemia, goal LDL below 160 11/19/2013 GENERAL OSTEOARTHROSIS 06/18/2003 Hemorrhoids, external without complications 06/19/2014 HTN, goal below 140/90 08/03/2009 Modified per HTN protocol #16. Piles (hemorrhoids) 06/19/2014 Primary osteoarthritis of both hands 09/04/2016 Senile osteoporosis Urticaria 05/10/2008 Past Surgical History: Procedure Laterality Date COLONOSCOPY 08/2000 polyp removed COLONOSCOPY 2004 clear COLONOSCOPY, DIAGNOSTIC (RECTUM) 12/03/2017 diverticulosis/[facility] TOTAL ABD HYSTERECTOMY W/WO REMOVAL OF TUBE(S) 1981 Review of patient's allergies indicates: Allergen Reactions Hydrocodone Nausea/vomiting Amoxicillin Rash Claritin-D 12 Hour [Loratadine-Pseudoephedrine Er] rash Prednisone Elevated BP Sulfa Antibiotics Urticaria and pruritis. Family History Problem Relation Age of Onset Stroke Mother age 84 Arthritis Mother Cancer Grandmother (Maternal) leukemia - age 66 Arthritis Grandmother (Maternal) No Known Problems Daughter Mental Disorder Son mental health issues since being in [facility] Family Status Relation Status Mo at age 84 MGMA at age 66 [place] Alive Son Alive Social History Tobacco Use Smoking status: Never Smokeless tobacco: Never Tobacco comments: no passive smoke exposures Substance Use Topics Alcohol use: Yes Comment: Very rare Vaping/E-Cigarette Use Vaping/E-Cigarette Use Never User Vaping/E-Cigarette Substances Vaping/E-Cigarette Devices REVIEW OF SYSTEMS: Review of Systems Constitutional: Negative for chills, fatigue, fever and unexpected weight change. Respiratory: Negative for cough, chest tightness, shortness of breath and wheezing. Cardiovascular: Negative for chest pain, palpitations and leg swelling. Gastrointestinal: Negative for abdominal pain, constipation, diarrhea, nausea and vomiting. Musculoskeletal: Negative for arthralgias, gait problem and joint swelling. Skin: Negative for color change, pallor and rash. OBJECTIVE: BP 130/70 (BP Site: Left Arm, BP Position: Sitting, BP Cuff Size: Regular) | Pulse 89 | Temp 36.6 C (97.9 F) (Tympanic) | Resp 14 | Ht 1.486 m (4' 10.5") | Wt 50.1 kg (110 lb 8 oz) | SpO2 98% | BMI 22.70 kg/m | BSA 1.44 m PHYSICAL EXAM: Physical Exam Constitutional: General: She is not in acute distress. Appearance: She is well-developed. Cardiovascular: Rate and Rhythm: Normal rate and regular rhythm. Heart sounds: Normal heart sounds. No murmur heard. No friction rub. No gallop. Pulmonary: Effort: Pulmonary effort is normal. No respiratory distress. Breath sounds: Normal breath sounds. No wheezing or rales. Abdominal: General: Bowel sounds are normal. There is no distension. Palpations: Abdomen is soft. Tenderness: There is no abdominal tenderness. There is no guarding. Musculoskeletal: General: No tenderness or deformity. Normal range of motion. Skin: General: Skin is warm and dry. Coloration: Skin is not pale. Findings: No erythema or rash. Neurological: Mental Status: She is alert and oriented to person, place, and time. ASSESSMENT/PLAN: (R42) Dizziness (primary encounter diagnosis) Plan: EKG, 3 POSITIONAL BLOOD PRESSURE EKG with no acute issues. Appears similar to previous. Orthostatics were ok. Seems that this stems from her anxiety. (F41.1) THADDEUS (generalized anxiety disorder) Plan: Pt with significant anxiety. We discussed ways to continue to work on managing this. She willcontinue to work with her counselor. Continue on current medications. Advised to work with her daughter to see if she is willing to help her with her checkbook. (I10) Hypertension with goal blood pressure less than 140/90 Plan: BP controlled. No changes. (M81.0) Senile osteoporosis Plan: Pt follows with rheumatology. Had been getting Reclast. (M35.00) Sjogren's syndrome without extraglandular involvement (HCC) Plan: No current issues. (Z13.9) Risk and functional assessment Plan: See nursing note. Follow-up: as scheduled Total time today including reviewing chart before the visit, pertinent labs, imaging reports, face to face time, and documentation time was 47 minutes. Arlen Reveles DO documented in this encounter Nursing Notes * Genie Moulton LPN - 09/25/2023 9:53 AM EST Patient here for acute visit. Reports intermittent dizziness; thinks related to anxiety, also thinks may be related to exercises she is doing in PT to work on her shoulders and neck stiffness. EMS toher residence - states dizziness resolved by the time they arrived. She did not go to ED. Reports deaths of several family members which is causing her grief. Being seen by psych services. Reports she fell a few nights ago in her kitchen - no injuries. documented in this encounter Plan of Treatment Upcoming Encounters Date Type Department Care Team (Late st Contact Info) Description 10/30/2023 11:20 AM EST Office Visit Family Practice [address] [facility] [address] [place] [address] Arlen Reveles DO [address] [place] [address] 06/17/2024 3:20 PM EDT Office Visit Rheumatology [place] [id number] [place] [address] Del Johnson MD [address] [place] [address] Scheduled Orders Name Type Priority Associated Diagnoses Orde r Schedule EKG EKG Routine Dizziness Expected: 09/25/2023 (Approximate), Expires: 10/26/2024 3 POSITIONAL BLOOD PRESSURE Procedures Routine Dizziness Ordered: 09/25/2023 Health Maintenance Due Date Last Done Comments COVID-19 Vaccine ( season) 2023 09/19/2021, 01/03/2021, 12/13/2020 Postponed from 05/17/2023 (Patient Declined After Education) Depression Screening 08/01/2024 09/25/2023 DXA Scan 10/22/2024 10/22/2022, 02/15, 01/04/2015, Additional history exists Albumin/Creatinine Ratio 08/04/2025 08/04/2022 DTaP,Tdap,and Td Vaccines (3 - Td or Tdap) 11/15/2032 11/15/2022, 05/07/2012, 12/29/2004, Additional history exists Pneumococcal Vaccine: 65+ Years Completed 06/01/2015, 06/21/2008, 03/31/1999 Zoster Vaccines Completed 04/20/2019, 12/15, 06/13/2012 Influenza Vaccine (FLU shot) Completed 06/18/2023, 05/29/2022, 06/22/2021, Additional history exists VITAMIN D LEVEL ONCE IN A LIFETIME-USE SMARTSET# [id number] Completed 08/01/2023, 06/22/2021, 11/03/2010, Additional history exists [...] as of this encounter Visit Diagnoses Diagnosis Dizziness- Primary Dizziness and giddiness THADDEUS (generalized anxiety disorder) Generalized anxiety disorder Hypertension with goal blood pressure less than 140/90 Senile osteoporosis Sjogren's syndrome without extraglandular involvement (HCC) Risk and functional assessment Screening for unspecified condition documented in this encounter Care Teams Irrigation Foreman Relationship Specialty Start Date End Date Arlen Reveles DO [address] [place] [address] PCP - General Family Medicine 11/15/22 documented as of this encounter
--- OUTSIDE RECORDS SUMMARY | 2023-12-17 06:25 | External Medical Summary | Summary of Care ---
Author Name Unknown Organization [facility] Address [address] [place] [address] Phone [phone] Care Team Providers Care Media Services Specialist Name Role Phone Arlen Helton DO Primary Care Provider + [phone] Reason for Visit * Reason Onset Date Comments Medication Refill 10/09/2023 Encounter Details Date Type Department Care Team (Late st Contact Info) Description 10/09/2023 Refill Family Practice [address] [place] [address] [place] [phone] Arlen Helton DO [address] [place] [address] THADDEUS (generalized anxiety disorder) Allergies Active Allergy Reactions Criticality Noted Date Comments Amoxicillin 09/01/2005 Rash Loratadine-Pseudoephedrin e Er 05/17/2020 rash Hydrocodone Nausea/vomiting High 02/08/2021 Prednisone 05/10/2008 Elevated BP Sulfa Antibiotics 05/02/2013 Urticaria and pruritis. documented as of this encounter (statuses as of 10/10/2023) Medications Medication Sig Dispensed Refills Start Date [...] 100 Tablet 3 12/31/2022 12/31/2023 Active Nystatin 863033 UNIT/GM External CreamIndications :Candidal skin infection APPLY TOPICALLY TO AFFECTED AREA TWO TIMES A DAY 30 g 2 11/15/2022 11/15/2023 Active Sertraline HCl 25 MG Oral Tablet (Zoloft) Take one and one-half tablets by mouth in the morning. 135 Tablet 1 09/03/2023 Active LORazepam 0.5 MG Oral Tablet (Ativan)Indicati ons:THADDEUS (generalized anxiety disorder) Take 1 Tablet by mouth every 8 hours as needed for Anxiety. 90 Tablet 0 10/10/2023 Active LORazepam 0.5 MG Oral Tablet (Ativan)Indicati ons:THADDEUS (generalized anxiety disorder) Take 1 Tablet by mouth every 8 hours as needed for Anxiety. 90 Tablet 0 08/21/2023 10/09/2023 Discontinued (Refill) documented as of this encounter (statuses as of 10/10/2023) Active Problems Problem Noted Date Diagnosed Date Sjogren's syndrome without extraglandular involv ement 02/12/2020 THADDEUS (generalized anxiety disorder) 12/14/2019 Left asymmetrical SNHL 04/18/2018 HTN, goal below 130/80 08/03/2009 Overview: Modified per HTN protocol #16. Generalized osteoarthritis 06/18/2003 Senile osteoporosis documented as of this encounter (statuses as of 10/10/2023) Resolved Problems Problem Noted Date Diagnosed Date Resolved Date Other chronic sinusitis 04/18/201810/18 Carpal tunnel syndrome of left wrist 03/05/2018 11/11/2020 Allergic rhinitis 12/30/2017 11/13/2021 Primary osteoarthritis of both hands 09/04/2016 11/11/2020 Hemorrhoids, external without complications 06/19/2014 06/19/2017 Piles (hemorrhoids) 06/19/2014 06/19/20 Dyslipidemia, goal LDL below 160 11/19/2013 12/30/2017 [...] as of this encounter (statuses as of 10/10/2023) Immunizations Name Administration Dates Next Due COVID-19 [...] Telephone Encounter - Arlen Helton DO - 10/10/2023 2:22 PM ESTSigned Prescriptions: Disp Refills LORazepam 0.5 MG Oral Tablet (Ativan) 90 Tab*0 Sig: Take 1 Tablet by mouth every 8 hours as needed for Anxiety.Authorizing Provider: ARLEN HELTON * Telephone Encounter - Arlen Helton DO - 10/10/2023 2:21 PM EST Rx sent. I have reviewed the patients controlled substance dispensing history in the Prescription Drug Monitoring Program in compliance with the [facility] regulations before prescribing a controlled substance. Last Tox Screen Results: No results found for this or any previous visit. * Telephone Encounter - Norma Herr [facility] - 10/10/2023 7:48 AM ESTPending Prescriptions: Disp Refills LORazepam 0.5 MG Oral Tablet (Ativan) 90 Tab*0 Sig: Take 1 Tablet by mouth every 8 hours as needed for Anxiety. * Telephone Encounter - Norma Herr [facility] - 10/10/2023 7:48 AM EST I have reviewed the patients controlled substance dispensing history in the Prescription Drug Monitoring Program in compliance with the [facility] regulations before prescribing a controlled substance. PDMP checked on 10/10/2023. Pending Prescriptions: Disp Refills LORazepam 0.5 MG Oral Tablet (Ativan) 90 Tab*0 Sig: Take 1 Tablet by mouth every 8 hours as needed for Anxiety. Last Visit: 09/25/2023 (in office), Visit date not found (telemedicine) Next Visit: 10/30/2023 Date medication was last filled: 08/23/23 Date medication is due for refill: 09/21/23 Pharmacy: [facility] Is this request for a controlled substance? Yes and Urine Drug Screen Not completed Toxicology results: No results found for this or any previous visit. Please approve if appropriate. Thank You, Norma Herr [facility] Clinical Pharmacist [facility] ([facility]) (formerly Telepharmacy) [phone] 10/10/2023, 7:48 AM * Telephone Encounter - Ayana Boucher [facility] - 10/09/2023 9:40 AM EST Did you pend patient's preferred pharmacy and medication before forwarding?yes Pharmacy: [facility] Pending Prescriptions: Disp Refills LORazepam 0.5 MG Oral Tablet (Ativan) 90 Tab*0 Sig: Take 1 Tablet by mouth every 8 hours as needed for Anxiety. Last Visit: 09/25/2023 (in office), Visit date not found (telemedicine) Next Visit: 10/30/2023 If no future appointments scheduled, and last appointment is greater than a year ago, please schedule patient for a follow-up appointment Last date the medication was ordered: 08/21/2023 Is this request for a controlled substance?Yes, What was the last refill date 08/21/2023 w/ quantity 90 and dosage 0.5mg and Urine Drug Screen [...] 11:20 AM EST Office Visit Family Practice [address] [place] [address] [place] [address] Arlen Helton DO 293 [place] [address] 06/17/2024 3:20 PM EDT Office Visit [facility]umat[facility] [address] [facility] [address] Del Johnson MD [address] [place] [address] Health Maintenance Due Date Last Done Comments COVID-19 Vaccine ( season) 2023 09/19/2021, 01/03/2021, 12/13/2020 Depression Screening 09/25/2024 09/25/2023 DXA Scan 10/22/2024 10/22/2022, 02/15, 01/04/2015, Additional history exists Albumin/Creatinine Ratio 08/04/2025 08/04/2022 DTaP,Tdap,and Td Vaccines (3 - Td or Tdap) 11/15/2032 11/15/2022, 05/07/2012, 12/29/2004, Additional history exists Pneumococcal Vaccine: 65+ Years Completed 06/01/2015, 06/21/2008, 03/31/1999 Zoster Vaccines Completed 04/20/2019, 12/15, 06/13/2012 Influenza Vaccine (FLU shot) Completed 11/2022, 05/29/2022, 06/22/2021, Additional history exists VITAMIN D LEVEL ONCE IN A LIFETIME-USE SMARTSET# [id number] Completed 08/01/2023, 06/22/2021, 11/03/2010, Additional history exists [...] disorder documented in this encounter Care Teams Media Services Specialist Relationship Specialty Start Date End Date Arlen Helton DO [address] [place] [address] PCP - General Family Medicine 11/15/22 documented as of this encounter
--- OUTSIDE RECORDS SUMMARY | 2023-12-17 06:25 | External Medical Summary | Summary of Care ---
Author Name Unknown Organization [facility] Address [address] [place] [address] Phone [phone] Care Team Providers Care Cook Station Name Role Phone Arlen Reveles DO Primary Care Provider + [phone] Reason for Visit * Reason Comments Acute Encounter Details Date Type Department Care Team (Latest Contact Info) Description 09/25/2023 9:40 AM EST Office Visit Family Practice [address] [place] [address] [place] [address] Arlen Reveles DO [address] [place] [address] Dizziness*; THADDEUS (generalized anxiety disorder); Hypertension with goal blood pressure less than 140/90; Senile osteoporosis; Sjogren's syndrome without extraglandular involvement (HCC); Risk and functional assessment Allergies Active Allergy Reactions Criticality Noted Date Comments Amoxicillin 09/01/2005 Rash Loratadine-Pseudoephedrin e Er 05/17/2020 rash Hydrocodone Nausea/vomiting High 02/08/2021 Prednisone 05/10/2008 Elevated BP Sulfa Antibiotics 05/02/2013 Urticaria and pruritis. documented as of this encounter (statuses as of 09/26/2023) Medications Medication Sig Dispensed Refills Start Date [...] 100 Tablet 3 12/31/2022 12/31/2023 Active Nystatin 300473 UNIT/GM External CreamIndications:C andidal skin infection APPLY [...] as of this encounter (statuses as of 09/26/2023) Active Problems Problem Noted Date Diagnosed Date Sjogren's syndrome without extraglandular involv ement 02/12/2020 THADDEUS (generalized anxiety disorder) 12/14/2019 Left asymmetrical SNHL 04/18/2018 HTN, goal below 130/80 08/03/2009 Overview: Modified per HTN protocol #16. Generalized osteoarthritis 06/18/2003 Senile osteoporosis documented as of this encounter (statuses as of 09/26/2023) Resolved Problems Problem Noted Date Diagnosed Date [...] as of this encounter (statuses as of 09/26/2023) Immunizations Name Administration Dates Next Due COVID-19 [...] goal below 130/80 I10 Left asymmetrical SNHL [id number] THADDEUS (generalized anxiety disorder) F41.1 Sjogren's syndrome [...] IN THE MORNING 100 Tablet 3 Nystatin 302977 UNIT/GM External Cream APPLY TOPICALLY TO AFFECTED [...] COLONOSCOPY 2004 clear COLONOSCOPY, DIAGNOSTIC (RECTUM) 12/03/2017 diverticulosis/[facility] TOTAL ABD HYSTERECTOMY W/WO REMOVAL OF TUBE(S) [...] Son mental health issues since being in [facility] Family Status Relation Status Mo at age [...] AM EST Office Visit Family Practice [address], [place] [address] [place] [address] Arlen Reveles DO [address] [place] [address] 06/17/2024 3:20 PM EDT Office Visit Rheumatology [place] [address] [employer] [place] [address] Del Johnson MD [address] [facility], [place] [address] Scheduled Orders Name Type Priority Associated Diagnoses Orde r Schedule 3 POSITIONAL BLOOD PRESSURE Procedures Routine Dizziness Ordered: 09/25/2023 Health Maintenance Due Date Last Done Comments COVID-19 Vaccine ( season) 2023 09/19/2021, 01/03/2021, 12/13/2020 Postponed from 05/17/2023 (Patient Declined After Education) Depression Screening 09/25/2024 09/25/2023 DXA Scan 10/22/2024 [...] D LEVEL ONCE IN A LIFETIME-USE SMARTSET# [id number] Completed 08/01/2023, 06/22/2021, 11/03/2010, Additional history exists [...] Not on filedocumented as of this encounter Results * EKG (09/25/2023 10:47 AM EST) 09/25/2023 10:4 7 AM EST Narrative Procedure Note Jono Stover, - 09/25/2023 10:47 AM EST REASON FOR STUDY: dizziness CONCLUSIONS: Normal sinus rhythm Possible Left atrial enlargement Possible Anterior infarct , age undetermined Abnormal ECG When compared with ECG of 21-FEB-2023 15:46, Premature ventricular complexes are no longer Present Ventricular Rate: 80 Atrial Rate: 80 HI Interval: 152 QRS Duration: 88 QT/QTc: 388/447 ms P-R-T [place]: 63 : 0 : 58 degrees Arlen Reveles DO EKG [facility] documented in this encounter Visit Diagnoses Diagnosis Dizziness- Primary Dizziness and giddiness THADDEUS (generalized anxiety disorder) Generalized anxiety disorder Hypertension with goal blood pressure less than 140/90 Senile osteoporosis Sjogren's syndrome without extraglandular involvement (HCC) Risk and functional assessment Screening for unspecified condition Dizziness Dizziness and giddiness documented in this encounter Care Teams Cook Station Relationship Specialty Start Date End Date Arlen Reveles DO [address] [place] [address] PCP - General Family Medicine 11/15/22 documented as of this encounter
--- OUTSIDE RECORDS SUMMARY | 2023-12-17 06:25 | External Medical Summary | Summary of Care ---
Author Name Unknown Organization [facility] Address [address] [place] [address] Phone [phone] Care Team Providers Care Tonsorial Artist Name Role Phone GiuliaArlen walsh Rudolph HURLEY Primary Care Provider + [phone] Encounter Details Date Type Department Care Team (Late st Contact Info) Description 09/25/2023 CardioDiagnostic Study Unspecified Department EKG Report Allergies Active Allergy Reactions Criticality Noted Date [...] 100 Tablet 3 12/31/2022 12/31/2023 Active Nystatin [id number] UNIT/GM External CreamIndications:C andidal skin infection APPLY [...] on file documented as of this encounter Procedure Notes * Jono Stover DO - 09/25/2023 10:47 AM ESTAssociated Order(s): EKG REPORT REASON FOR STUDY: CONCLUSIONS: Normal sinus rhythm Possible Left atrial enlargement Possible Anterior infarct , age undetermined Abnormal ECG When compared with ECG of 21-FEB-2023 15:46, Premature ventricular complexes are no longer Present Ventricular Rate: 80 Atrial Rate: 80 [place] Interval: 152 QRS Duration: 88 QT/QTc: 388/447 ms P-R-T [place]: 63 : 0 : 58 degrees documented in this encounter Plan of Treatment Upcoming Encounters Date Type Department Care Team (Late st Contact Info) Description 10/30/2023 11:20 AM EST Office Visit [facility] [address], [place] [address] [facility] [phone] [facility] [address] [facility] [address] 06/17/2024 3:20 PM EDT Office Visit Rheumatology [address] [place] [address] Del Johnson MD [address] [place] [address] Health Maintenance Due Date Last Done Comments [...] D LEVEL ONCE IN A LIFETIME-USE SMARTSET# [id number] Completed 08/01/2023, 06/22/2021, 11/03/2010, Additional history exists [...] Not on filedocumented as of this encounter Procedures Procedure Name Priority Date/Time Associated Diagnosis Comments EKG REPORT 09/25/2023 10:47 AM EST documented in this encounter Results * EKG REPORT (09/25/2023 10:47 AM EST) 09/25/2023 10:4 7 AM EST Narrative Procedure Note Ck Jono Ryder, DO - 09/25/2023 10:47 AM EST REASON FOR STUDY: CONCLUSIONS: Normal sinus rhythm Possible Left atrial enlargement Possible Anterior infarct , age undetermined Abnormal ECG When compared with ECG of 21-FEB-2023 15:46, Premature ventricular complexes are no longer Present Ventricular Rate: 80 Atrial Rate: 80 [place] Interval: 152 QRS Duration: 88 QT/QTc: 388/447 ms P-R-T [place]: 63 : 0 : 58 degrees No Physician Data Unknown EKG documented in this encounter Care Teams Tonsorial Artist Relationship Specialty Start Date End Date Arlen Reveles DO [address] [place] [address] PCP - General Family Medicine 11/15/22 documented as of this encounter
--- OUTSIDE RECORDS SUMMARY | 2023-12-17 06:25 | External Medical Summary | Summary of Care ---
Author Name Unknown Organization [facility] Address [address] [place] [address] Phone [phone] Care Team Providers Care Web Applications Administrator Name Role Phone Arlen Reveles DO Primary Care Provider + [phone] Reason for Visit * Reason Comments Follow Up Encounter Details Date Type Department Care Team (Late st Contact Info) Description 10/30/2023 11:20 AM EST Office Visit Family Practice [address], [place] [address] [place] [address] Arlen Reveles DO [address] [place], [place] [phone] HTN, goal below 130/80*; THADDEUS (generalized anxiety disorder) Allergies Active Allergy Reactions Criticality Noted Date Comments Amoxicillin 09/01/2005 Rash Loratadine-Pseudoephedrin e Er 05/17/2020 rash Hydrocodone Nausea/vomiting High 02/08/2021 Prednisone 05/10/2008 Elevated BP Sulfa Antibiotics 05/02/2013 Urticaria and pruritis. documented as of this encounter (statuses as of 10/31/2023) Medications Medication Sig Dispensed Refills Start Date [...] MORNING 100 Tablet 3 12/31/2022 02/11/2024 Active Nystatin 040738 UNIT/GM External CreamIndications:C andidal skin infection APPLY TOPICALLY TO AFFECTED AREA TWO TIMES A DAY 30 g 2 11/15/2022 11/15/2023 Active Sertraline HCl 25 MG Oral Tablet (Zoloft) Take one and one-half tablets by mouth in the morning. 135 Tablet 1 09/03/2023 Active LORazepam 0.5 MG Oral Tablet (Ativan)Indication s:THADDEUS (generalized anxiety disorder) Take 1 Tablet by mouth every 8 hours as needed for Anxiety. 90 Tablet 0 10/10/2023 Active documented as of this encounter (statuses as of 10/31/2023) Active Problems Problem Noted Date Diagnosed Date Sjogren's syndrome without extraglandular involv ement 02/12/2020 THADDEUS (generalized anxiety disorder) 12/14/2019 Left asymmetrical SNHL 04/18/2018 HTN, goal below 130/80 08/03/2009 Overview: Modified per HTN protocol #16. Generalized osteoarthritis 06/18/2003 Senile osteoporosis documented as of this encounter (statuses as of 10/31/2023) Resolved Problems Problem Noted Date Diagnosed Date [...] as of this encounter (statuses as of 10/31/2023) Immunizations Name Administration Dates Next Due COVID-19 mRNA, LNP-s, No Pre serve, 2-Dose Series ([employer]) 09/19/2021,01/03/2021,12/13/2020 Pneumococcal Conjugate Vacc, 13 Valent (Prevnar) [...] Sign Reading Time Taken Comments Blood Pressure 124/74 10/30/2023 11:30 AM EST Pulse 86 10/30/2023 11:30 AM EST Temperature 35.9 C (96.6 F) 10/30/2023 11:[address] Respiratory Rate 14 10/30/2023 11:30 AM EST Oxygen Saturation 97% 10/30/2023 11:30 AM EST Inhaled Oxygen Concentration - - Weight 48.6 kg (107 lb 1.6 oz) 10/30/2023 11:30 AM EST Height 148.6 cm (4' 10.5") 10/30/2023 11:[address] Body Mass Index 22 10/30/2023 11:30 AM EST documented in this encounter Progress Notes * Arlen Reveles DO - 10/30/2023 11:22 AM EST SUBJECTIVE: Chief Complaint Patient presents with Follow Up HPI: Lisa Rios is a 88 year old female who presents today for regular return. Pt notes that she continues PT for neck pain. She has an occasional discomfort but it is not for long. She feels a lotof progress overall. Pt continues on her anxiety medications. She feels they are working fairly well. She does meet withher psychologist this afternoon. Pt requests a parking placard. She notes she is giving up driving but does have people that can transport her. She feels good about this. PHM: Patient Active Problem List Diagnosis Code Generalized osteoarthritis M15.9 HTN, goal below 130/80 I10 Left asymmetrical SNHL [id number] THADDEUS (generalized anxiety disorder) F41.1 Sjogren's syndrome [...] IN THE MORNING 100 Tablet 3 Nystatin 821744 UNIT/GM External Cream APPLY TOPICALLY TO AFFECTED AREA TWO TIMES A DAY 30 g 2 Sertraline HCl 25 MG Oral Tablet (Zoloft) Take one and one-half tablets by mouth in the morning. 135 Tablet 1 LORazepam 0.5 MG Oral Tablet (Ativan) Take 1 Tablet by mouth every 8 hours as needed for Anxiety. 90 Tablet 0 No current facility-administered medications for this visit. [...] COLONOSCOPY 2004 clear COLONOSCOPY, DIAGNOSTIC (RECTUM) 12/03/2017 diverticulosis/[facility] TOTAL ABD HYSTERECTOMY W/WO REMOVAL OF [...] Son mental health issues since being in [place] Family Status Relation Status Mo at age [...] color change, pallor and rash. OBJECTIVE: BP 124/74 (BP Site: Left Arm, BP Position: Sitting, BP Cuff Size: Regular) | Pulse 86 | Temp 35.9 C (96.6 F) (Tympanic) | Resp 14 | Ht 1.486 m (4' 10.5") | Wt 48.6 kg (107 lb 1.6 oz) | SpO2 97% |BMI 22.00 kg/m | BSA 1.42 m PHYSICAL EXAM: Physical Exam Constitutional: General: [...] oriented to person, place, and time. ASSESSMENT/PLAN: (I10) HTN, goal below 130/80 (primary encounter diagnosis) Plan: BP controlled. No changes for now. She will continue. (F41.1) THADDEUS (generalized anxiety disorder) Plan: Doing well today. She will continue to follow with her psychologist. She will continue on current regimen. No changes for now. She will call with issues. Follow-up: 3 months Total time today including reviewing chart before the visit, pertinent labs, imaging reports, face to face time, and documentation time was 31 minutes. Arlen Reveles DO documented in this encounter Nursing Notes * Genie Moulton LPN - 10/30/2023 11:28 AM EST Patient here for routine follow up visit. Declined COVID and RSV vaccines today. documented in this encounter Plan of Treatment Upcoming Encounters Date Type Department Care Team (Late st Contact Info) Description 02/03/2024 11:20 AM EDT Office Visit Family Practice [address] [place] [address] [address] [facility] [address] [facility]len [facility] DO [address] [facility] [address] 06/17/2024 3:20 PM EDT Office Visit Rheumatology [facility] [address] [place] [address] Del Johnson MD [address] [place] [address] Health Maintenance Due Date Last Done Comments [...] D LEVEL ONCE IN A LIFETIME-USE SMARTSET# [id number] Completed 08/01/2023, 06/22/2021, 11/03/2010, Additional history exists [...] as of this encounter Visit Diagnoses Diagnosis HTN, goal below 130/80- Primary Unspecified essential hypertension THADDEUS (generalized anxiety disorder) Generalized anxiety disorder documented in this encounter Care Teams Web Applications Administrator Relationship Specialty Start Date End Date Arlen Reveles DO [address] [place] [address] PCP - General Family Medicine 11/15/22 documented as of this encounter
--- OUTSIDE RECORDS SUMMARY | 2023-12-17 06:25 | External Medical Summary | Summary of Care ---
Author Name Unknown Organization [facility] Address [address] [place] [address] Phone [phone] Care Team Providers Care Detention Deputy Name Role Phone Arlen Reveles DO Primary Care Provider + [phone] Reason for Visit * Reason Comments Follow Up Encounter Details Date Type Department Care Team (Late st Contact Info) Description 10/30/2023 11:20 AM EST Office Visit Family Practice [address] [place] [address] [place] [address] Arlen Reveles DO [address] [place], [place] [phone] HTN, goal below 130/80*; THADDEUS (generalized anxiety disorder) Allergies Active Allergy Reactions Criticality Noted Date Comments Amoxicillin 09/01/2005 Rash Loratadine-Pseudoephedrin e Er 05/17/2020 rash Hydrocodone Nausea/vomiting High 02/08/2021 Prednisone 05/10/2008 Elevated BP Sulfa Antibiotics 05/02/2013 Urticaria and pruritis. documented as of this encounter (statuses as of 10/30/2023) Medications Medication Sig Dispensed Refills Start Date [...] 100 Tablet 3 12/31/2022 02/11/2024 Active Nystatin 892946 UNIT/GM External CreamIndications:C andidal skin infection APPLY [...] as of this encounter (statuses as of 10/30/2023) Active Problems Problem Noted Date Diagnosed Date Sjogren's syndrome without extraglandular involv ement 02/12/2020 THADDEUS (generalized anxiety disorder) 12/14/2019 Left asymmetrical SNHL 04/18/2018 HTN, goal below 130/80 08/03/2009 Overview: Modified per HTN protocol #16. Generalized osteoarthritis 06/18/2003 Senile osteoporosis documented as of this encounter (statuses as of 10/30/2023) Resolved Problems Problem Noted Date Diagnosed Date [...] as of this encounter (statuses as of 10/30/2023) Immunizations Name Administration Dates Next Due COVID-19 mRNA, LNP-s, No Pre serve, 2-Dose Series ([employer]s) 09/19/2021,01/03/2021,12/13/2020 Pneumococcal Conjugate Vacc, 13 Valent (Prevnar) [...] goal below 130/80 I10 Left asymmetrical SNHL [id number] THADDEUS (generalized anxiety disorder) F41.1 Sjogren's syndrome [...] IN THE MORNING 100 Tablet 3 Nystatin 129786 UNIT/GM External Cream APPLY TOPICALLY TO AFFECTED [...] COLONOSCOPY 2004 clear COLONOSCOPY, DIAGNOSTIC (RECTUM) 12/03/2017 diverticulosis/[facility] TOTAL ABD HYSTERECTOMY W/WO REMOVAL [...] 11:20 AM EDT Office Visit Family Practice [address] [place] [address] [address] [facility] [address] Arlen Reveles DO [address] [facility] [address] 06/17/2024 3:20 PM EDT Office Visit Rheumatology [facility] [address] [place] [address] Del Johnson MD [address] [place] [address] Health Maintenance Due Date Last Done Comments [...] D LEVEL ONCE IN A LIFETIME-USE SMARTSET# [id number] Completed 08/01/2023, 06/22/2021, 11/03/2010, Additional history exists [...] disorder documented in this encounter Care Teams Detention Deputy Relationship Specialty Start Date End Date Arlen Reveles DO [address] [place] [address] PCP - General Family Medicine 11/15/22 documented as of this encounter
--- OUTSIDE RECORDS SUMMARY | 2023-12-17 06:26 | External Medical Summary | Summary of Care ---
Author Name Unknown Organization [facility] Address [address] [place] [address] Phone [phone] Care Team Providers Care Mental Health Unit Lead Psychologist Name Role Phone GiuliaArlen walsh Rudolph HURLEY Primary Care Provider + [phone] Encounter Details Date Type Department Care Team (Late st Contact Info) Description 08/06/2023 Population Health External Data Unspecified Department Allergies Active Allergy Reactions Criticality Noted Date Comments Amoxicillin 09/01/2005 Rash Loratadine-Pseudoephedrin e Er 05/17/2020 rash Hydrocodone Nausea/vomiting High 02/08/2021 Prednisone 05/10/2008 Elevated BP Sulfa Antibiotics 05/02/2013 Urticaria and pruritis. documented as of this encounter (statuses as of 08/06/2023) Medications Medication Sig Dispensed Refills Start Date [...] 100 Tablet 3 12/31/2022 12/31/2023 Active Nystatin 509966 UNIT/GM External CreamIndications:C andidal skin infection APPLY TOPICALLY TO AFFECTED AREA TWO TIMES A DAY 30 g 2 11/15/2022 11/15/2023 Active LORazepam 0.5 MG Oral Tablet (Ativan)Indication s:THADDEUS (generalized anxiety disorder) Take 1 Tablet by mouth every 8 hours as needed for Anxiety. 90 Tablet 0 07/09/2023 Active Sertraline HCl 25 MG Oral Tablet (Zoloft) Take 1.5 Tablets by mouth in the morning. 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 Generalized osteoarthritis 06/18/2003 Senile osteoporosis documented as of this encounter (statuses as of 08/06/2023) Resolved Problems Problem Noted Date Diagnosed Date [...] as of this encounter (statuses as of 08/06/2023) Immunizations Name Administration Dates Next Due COVID-19 mRNA, LNP-s, No Pre serve, 2-Dose Series (Pfizer) 09/19/2021,01/03/2021,12/13/2020 Pneumococcal Conjugate Vacc, 13 Valent (Prevnar) 06/01/2015 Pneumococcal Polysaccharide PPV23 (Pneumovax) 06/21/2008 SEASONAL INFLUENZA, PF, 6 M & Above, IM , (FLULAVAL or FLUZONE) 06/21/2020,06/02/2018 Seasonal Influenza Virus Vac cine, Unspecified Formulation 06/21/2020,07/06/2019,06/02/2018,05/27,06/13/2016,05/26/2014,06/12/2013 ,06/13/2012,06/07/2011,06/07/2010,08/18,06/21/2008,07/09/2007, 6,06/28/2005,08/03/2004,06/18/2003,,07/31/2000,07/03/1999 Seasonal Influenza, Quadriva lent Hd (Fluzone Hd) [...] Date Recorded PHQ Adult Total Score 0 07/04/2023 Hunger Vital Sign Answer Date Recorded Within the past 12 months, y ou worried that your food would run out before you got the money to buy more. Never true 07/04/20 23 Within the past 12 months, t he food you bought just didn't last and you didn't have money to get more. Never true 07/04/2023 Sex and Gender Information Value Date Recorded Sex Assigned at Female 12/22/2018 9:48 AM EDT Gender Identity Female 12/22/2018 9:48 AM EDT Sexual Orientation Straight 12/22/2018 9: 48 AM EDT Job Start Date Occupation Industry Not on file Not on file Not on file documented as of this encounter Plan of Treatment Upcoming Encounters Date Type Department Care Team (Late st Contact Info) Description 09/04/2023 2:00 PM EST Imaging Radiology [address] 132 [facility] [place] [address] 10/30/2023 11:20 AM EST Office Visit Family Practice [address] [place] [address] [address] [place] [address] Arlen Reveles DO 293 [facility] [place] [address] 06/17/2024 3:20 PM EDT Office Visit Rheumatology [place] [address] [place] [address] Del Johnson MD [address] [place] [address] Health Maintenance Due Date Last Done Comments [...] D LEVEL ONCE IN A LIFETIME-USE SMARTSET# [id number] Completed 08/01/2023, 06/22/2021, 11/03/2010, Additional history exists [...] filedocumented as of this encounter Care Teams Mental Health Unit Lead Psychologist Relationship Specialty Start Date End Date Arlen Reveles DO [address] [place] [address] PCP - General Family Medicine 11/15/22 documented as of this encounter
--- OUTSIDE RECORDS SUMMARY | 2023-12-17 06:26 | External Medical Summary | Summary of Care ---
Author Name Unknown Organization [facility] Address [address] [place] [address] Phone [phone] Care Team Providers Care Hand Touch Up Painter Name Role Phone Arlen Reveles DO Primary Care Provider + [phone] Reason for Visit * Reason Comments Outpatient Testing Encounter Details Date Type Department Care Team (Late st Contact Info) Description 08/19/2023 11:20 AM EST Laboratory Laboratory, [place] [address] [place] [address] [place], [facility] [address] [place], [place] [id number] Senile osteoporosis; Hyponatremia Allergies Active Allergy Reactions Criticality Noted Date Comments Amoxicillin 09/01/2005 Rash Loratadine-Pseudoephedrin e Er 05/17/2020 rash Hydrocodone Nausea/vomiting High 02/08/2021 Prednisone 05/10/2008 Elevated BP Sulfa Antibiotics 05/02/2013 Urticaria and pruritis. 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 Generalized osteoarthritis 06/18/2003 Senile osteoporosis documented as of this encounter (statuses as of 08/19/2023) Resolved Problems Problem Noted Date Diagnosed Date [...] as of this encounter (statuses as of 08/19/2023) Immunizations Name Administration Dates Next Due COVID-19 [...] Description 09/04/2023 2:00 PM EST Imaging Radiology [address] 132 [facility] [place] [address] 10/30/2023 11:20 AM EST Office Visit Family Practice [address] [place] [address] 293 [facility] [place] [address] Arlen Reveles DO [address] [facility] [address] 06/17/2024 3:20 PM EDT Office Visit Rheumatology [place] [address] [place] [address] Del Johnson MD [address] [place] [address] Pending Results Name Type Priority Associated Diagnoses Date /Time BASIC METABOLIC PANEL Lab Routine Senile osteoporosis 08/19/2023 11:26 AM EST Health Maintenance Due Date Last Done Comments [...] D LEVEL ONCE IN A LIFETIME-USE SMARTSET# [id number] Completed 08/01/2023, 06/22/2021, 11/03/2010, Additional history exists [...] as of this encounter Visit Diagnoses Diagnosis Senile osteoporosis Hyponatremia Hyposmolality and/or hyponatremia documented in this encounter Care Teams Hand Touch Up Painter Relationship Specialty Start Date End Date Arlen Reveles DO [address] [place] [address] PCP - General Family Medicine 11/15/22 documented as of this encounter
--- OUTSIDE RECORDS SUMMARY | 2023-12-17 06:26 | External Medical Summary | Summary of Care ---
Author Name Unknown Organization [facility] Address [address] [place] [address] Phone [phone] Care Team Providers Care Real Estate Attorney Name Role Phone Arlen Reveles DO Primary Care Provider + [phone] Reason for Referral * Evaluate & Treat - Unlimited Visits (Within 3 days (urgent)) - Authorized Specialty Diagnoses / Procedures Referred By Sánchez bryson Referred To Contact Dermatology Diagnoses Non-healing skin lesion Arlen Reveles DO [address] [place] [address] Referral ID Status Reason Start Date Expiration Date Visits Requested Visits Authorized [id number] Authorized Specialty Services Required 3 [phone] Question Answer Referral Priority Within 3 days (urgent) Where should this appointment be scheduled? [facility] Are you referring the patient for Mohs Surgery and have a current positive skin cancer biopsy result? No What is the reason for the patient referral? Rash/Skin Check/Eval of Lesion or Mole Reason for Visit * Reason Comments Follow Up Encounter Details Date Type Department Care Team (Late st Contact Info) Description 08/01/2023 1:00 PM EST Office Visit Family Practice [address] [facility] [place] [address] [place] [address] Arlen Reveles DO [address] [place] [address] HTN, goal below 130/80*; THADDEUS (generalized anxiety disorder); Senile osteoporosis; Non-healing skin lesion Allergies Active Allergy Reactions Criticality Noted Date Comments Amoxicillin 09/01/2005 Rash Loratadine-Pseudoephedrin e Er 05/17/2020 rash Hydrocodone Nausea/vomiting High 02/08/2021 Prednisone 05/10/2008 Elevated BP Sulfa Antibiotics 05/02/2013 Urticaria and pruritis. documented as of this encounter (statuses as of 08/02/2023) Medications Medication Sig Dispensed Refills Start Date [...] by mouth in the morning. 0 Active Hydrocortisone (Perianal) 2.5 % External CreamIndications:He morrhoids, external without complications ADMINISTER INTO THE RECTUM 2 TIMES A DAY 28 g 0 08/04/2022 3 Active ICaps AREDS Formula Oral Tablet Take twice daily with food 0 11/15/2022 Active Calcium Carbonate 600 MG Oral Tablet Take 1 Tablet by mouth every evening. 0 Active Felodipine ER 5 MG Oral Tablet Extended Release 24 Hour (Plendil) TAKE ONE TABLET BY MOUTH IN THE MORNING 100 Tablet 3 12/31/2022 4 Active Nystatin 503756 UNIT/GM External CreamIndications:Ca ndidal skin infection APPLY TOPICALLY TO AFFECTED AREA TWO TIMES A DAY 30 g 2 11/15/2022 4 Active LORazepam 0.5 MG Oral Tablet (Ativan)Indications :THADDEUS (generalized anxiety disorder) Take 1 Tablet by mouth every 8 hours as needed for Anxiety. 90 Tablet 0 07/09/2023 Active Sertraline HCl 25 MG Oral Tablet (Zoloft) Take 1.5 Tablets by mouth in the morning. 0 08/01/2023 Active Sertraline HCl 25 MG Oral Tablet (Zoloft) TAKE ONE TABLET BY MOUTH IN THE MORNING. 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 Generalized osteoarthritis 06/18/2003 Senile osteoporosis documented as of this encounter (statuses as of 08/02/2023) Resolved Problems Problem Noted Date Diagnosed Date Resolved Date Other chronic sinusitis 04/18/2018/02/2021 Carpal tunnel syndrome of left wrist 03/05/2018 [...] as of this encounter (statuses as of 08/02/2023) Immunizations Name Administration Dates Next Due COVID-19 [...] Sign Reading Time Taken Comments Blood Pressure 122/68 08/01/2023 1:12 PM EST Pulse 88 08/01/2023 1:12 PM EST Temperature 36.7 C (98.1 F) 08/01/2023 1:12 PM ES T Respiratory Rate 13 08/01/2023 1:12 PM EST Oxygen Saturation 98% 08/01/2023 1:12 PM EST Inhaled Oxygen Concentration - - Weight 50.8 kg (112 lb 1.6 oz) 08/01/2023 1:12 P M EST Height 148.6 cm (4' 10.5") 08/01/2023 1:12 PM ES T Body Mass Index 23.03 08/01/2023 1:12 PM EST documented in this encounter Progress Notes * Arlen Reveles, DO - 08/01/2023 1:18 PM EST SUBJECTIVE: Chief Complaint Patient presents with Follow Up HPI: Lisa Rios is a 88 year old female who presents today for regular return. Pt notes that she has been following with PT for her neck pain and shoulder pain. She is working with [facility]. She feels things are improving. Pt notes that her anxiety is some better. She has been seeing her therapist regularly. She is more motivated. She is on 1.5 of Zoloft. Pt notes a lesion on her right forearm that has been there for at least several weeks. It will not go away. PHM: Patient Active Problem List Diagnosis Code Generalized osteoarthritis M15.9 HTN, goal below 130/80 I10 Left asymmetrical SNHL [id number] THADDEUS (generalized anxiety disorder) F41.1 Sjogren's syndrome without extraglandular involvement (HCC) M35.00 Senile osteoporosis M81.0 Current Outpatient Medications Medication Sig Dispense Refill MUCINEX 600 MG PO TB12 as needed Vitamin C 250 MG Oral Tablet (Ascorbic Acid) Take 1 Tablet by mouth in the morning. Vitamin D 25 MCG (1000 UT) Oral Tablet Take by mouth. Vitamin B-12 1000 MCG Oral Tablet Take 1 Tablet by mouth in the morning. Hydrocortisone (Perianal) 2.5 % External Cream ADMINISTER INTO THE RECTUM 2 TIMES A DAY 28 g 0 ICaps AREDS Formula Oral Tablet Take twice daily with food Calcium Carbonate 600 MG Oral Tablet Take 1 Tablet by mouth every evening. Felodipine ER 5 MG Oral Tablet Extended Release 24 Hour (Plendil) TAKE ONE TABLET BY MOUTH IN THE MORNING 100 Tablet 3 Sertraline HCl 25 MG Oral Tablet (Zoloft) TAKE ONE TABLET BY MOUTH IN THE MORNING. 90 Tablet 3 LORazepam 0.5 MG Oral Tablet (Ativan) Take 1 Tablet by mouth every 8 hours as needed for Anxiety. 90 Tablet 0 SALINE 0.4 % NA SOLN Twice daily for sinus Nystatin 559764 UNIT/GM External Cream APPLY TOPICALLY TO AFFECTED AREA TWO TIMES A DAY 30 g 2 No current facility-administered medications for this visit. [...] COLONOSCOPY 2004 clear COLONOSCOPY, DIAGNOSTIC (RECTUM) 12/03/2017 diverticulosis/[facility] TOTAL ABD HYSTERECTOMY W/WO REMOVAL OF TUBE(S) 1982 Review of patient's allergies indicates: Allergen Reactions [...] pain, constipation, diarrhea, nausea and vomiting. Musculoskeletal: Positive for neck pain. Negative for arthralgias, gait problem and joint swelling. Skin: Negative for color change, pallor and rash. OBJECTIVE: BP 122/68 | Pulse 88 | Temp 36.7 C (98.1 F) | Resp 13 | Ht 1.486 m (4' 10.5") | Wt 50.8 kg (112lb 1.6 oz) | SpO2 98% | BMI 23.03 kg/m | BSA 1.45 m PHYSICAL EXAM: Physical Exam Constitutional: General: [...] tenderness or deformity. Normal range of motion. Comments: Some tightness and tenderness of trapezius muscles bilaterally Skin: General: Skin is warm and dry. Coloration: Skin is not pale. Findings: No erythema or rash. Neurological: Mental Status: She is alert and oriented to person, place, and time. ASSESSMENT/PLAN: (I10) HTN, goal below 130/80 (primary encounter diagnosis) Plan: COMPREHENSIVE METABOLIC PANEL, CBC WITH WBC DIFFERENTIAL, LIPID PANEL WITH DIRECT LDL IF TG IS HIGH BP controlled. No changes for now. Lab studies today. (F41.1) THADDEUS (generalized anxiety disorder) Plan: Pt encouraged to stay on the 1.5 tablets of Zoloft as it has worked well for her. (M81.0) Senile osteoporosis Plan: No changes. Following with Dr. Diehl. (L98.9) Non-healing skin lesion Plan: DERMATOLOGY REFERRAL OP Pt will see dermatology for further evaluation. Follow-up: 3 months Total time today including reviewing chart before the visit, pertinent labs, imaging reports, face to face time, and documentation time was 31 minutes. Arlen Reveles DO documented in this encounter Nursing Notes * Violeta Mace LPN - 08/01/2023 1:12 PM EST Patient presents for follow up, voices no complaints. documented in this encounter Plan of Treatment Upcoming Encounters Date Type Department Care Team (Late st Contact Info) Description 09/04/2023 2:00 PM EST Imaging Radiology [address] 132 [facility] [place] [address] 10/30/2023 11:20 AM EST Office Visit Family Practice [address] [place] [address] [address] [place] [address] Arlen Reveles DO [address] [place] [address] 06/17/2024 3:20 PM EDT Office Visit Rheumatology [address] [place] [address] Del Johnson MD [facility] [employer] [facility] [place] [address] Scheduled Referrals Name Type Priority Associated Diagnoses Orde r Schedule DERMATOLOGY REFERRAL OP Referral Within 3 days (urgent) Non-healing skin lesion Ordered: 08/01/2023 Health Maintenance Due Date Last Done Comments [...] D LEVEL ONCE IN A LIFETIME-USE SMARTSET# [id number] Completed 08/01/2023, 06/22/2021, 11/03/2010, Additional history exists [...] Procedure Name Priority Date/Time Associated Diagnosis Comments DIFFERENTIAL, AUTOMATED Routine 08/01/2023 1:51 PM EST HTN, goal below 130/80 LIPID PANEL WITH DIRECT LDL IF TG IS HIGH Routine 08/01/2023 1:51 PM EST HTN, goal below 130/80 COMPREHENSIVE METABOLIC PANEL Routine 08/01/2023 1:51 PM EST HTN, goal below 130/80 CBC Routine 08/01/2023 1:51 PM EST HTN, goal below 130/80 CBC Routine 08/01/2023 1:51 PM EST HTN, goal below 130/80 documented in this encounter Results * DIFFERENTIAL, AUTOMATED (08/01/2023 1:51 PM EST) WBC 8.53 4.00 - 10.80 K/uL 08/01/2023 10:21 PM EST [facility] Neutrophils % 70.1 40.0 - 75.0 % 08/01/2023 10:21 PM EST [facility] Lymphocytes % 18.6 18.0 - 42.0 % 08/01/2023 10:21 PM EST [facility] Monocytes % 9.1 1.0 - 11.0 % 08/01/2023 10:21 PM EST [facility] Eosinophils % 1.3 0.0 - 6.0 % 08/01/2023 10:21 PM EST [facility] Basophils % 0.4 0.0 - 2.0 % 08/01/2023 10:21 PM EST [facility] Immature Granulocytes % 0.5 0.0 - 2.0 % 08/01/2023 10:21 PM EST [facility] Absolute Neutrophils 5.98 1.80 - 7.70 K/uL 08/01/2023 10:21 PM EST [facility] Absolute Lymphocytes 1.59 1.00 - 4.80 K/ul 08/01/2023 10:21 PM EST [facility] Absolute Monocytes 0.78 0.00 - 1.10 K/uL 08/01/2023 10:21 PM EST [facility] Absolute Eosinophils 0.11 0.00 - 0.70 K/uL 08/01/2023 10:21 PM EST [facility] Absolute Basophils 0.03 0.00 - 0.20 K/uL 08/01/2023 10:21 PM EST [facility] Absolute Immature Granulocytes 0.04 0.00 - 0.20 K/uL 08/01/2023 10:21 PM EST [facility] Blood Venous blood specimen / Unknown Venipuncture / Unknown 08/01/2023 1:51 PM EST 08/01/2023 1:51 PM EST Arlen Reveles DO LAB BLOOD ORDERABLES [facility] [address] [place] [address] * CBC (08/01/2023 1:51 PM EST) WBC 8.53 4.00 - 10.80 K/uL 08/01/2023 10:21 PM EST [facility] RBC 4.67 3.85 - 5.15 M/uL 08/01/2023 10:21 PM EST [facility] HGB 14.3 12.0 - 15.3 g/dL 08/01/2023 10:21 PM EST [facility] HCT 43.6 36.0 - 45.2 % 08/01/2023 10:21 PM EST [facility] MCV 93.4 81.5 - 97.5 fL 08/01/2023 10:21 PM EST [facility] MCH 30.6 27.0 - 34.0 pg 08/01/2023 10:21 PM EST LAB[facility]ORY [facility] MCHC 32.8 32.0 - 36.0 g/dL 08/01/2023 10:21 PM EST LAB[facility] RDW 13.2 11.5 - 15.5 % 08/01/2023 10:21 PM EST LAB[facility]ATORY [facility] PLT 288 140 - 400 K/uL 08/01/2023 10:21 PM EST LABORATORY [facility] MPV 9.1 6.6 - 11.1 fL 08/01/2023 10:21 PM EST LABORATORY [facility] nRBCs 0 <=0 /100 WBCs 08/01/2023 10:21 PM EST [facility] Blood Venous blood specimen / Unknown Venipuncture / Unknown 08/01/2023 1:51 PM EST 08/01/2023 1:51 PM EST Arlen Reveles DO LAB BLOOD ORDERABLES Performing Organization Address City/State/[facility] Co de Phone Number LABORATORY [facility] [address] [place] [address] * (ABNORMAL) LIPID PANEL WITH DIRECT LDL IF TG IS HIGH (08/01/2023 1:51 PM EST) Pathologist [facility] Triglycerides 97 <=174 mg/dL 08/02/2023 12:40 AM EST LABORATORY [facility] Comment: Triglyceride Reference Ranges (mg/dL): <150 Acceptable 150-174 Borderline high 175-499 High >=500 Very high Cholesterol 200(H) <200 mg/dL 08/02/2023 12:40 AM EST [facility] Comment: Total Cholesterol Reference Ranges (mg/dL): <200 Desirable 200-239 Borderline high >=240 High HDL Cholesterol 48(L) >49 mg/dL 12:40 AM EST LABORATORY [facility] Comment: HDL Cholesterol Reference Ranges (mg/dL): >=60 High (Desirable) <50 Low (Undesirable) For Females <40 Low (Undesirable) For Males Non-HDL Cholesterol 152 <=159 mg/dL 08/02/2023 12:40 AM EST LABORATORY [facility] Comment: Non-HDL Cholesterol Reference Range (mg/dL): <100 Target level for high risk ASCVD patient <130 Optimal for general population 130-159 Near optimal for general population 160-189 Borderline High 190-219 High >=220 Very High LDL Cholesterol 133(H) <=129 mg/dL 08/02/2023 12:40 AM EST LABORATORY [facility] Comment: LDL Cholesterol Reference Ranges (mg/dL): <70 Target level for high risk ASCVD patient <100 Optimal for general population 100-129 Near optimal for general population 130-159 Borderline high 160-189 High >=190 Very high Blood Venous blood specimen / Unknown Venipuncture / Unknown 08/01/2023 1:51 PM EST 08/01/2023 1:51 PM EST Arlen Reveles DO LAB BLOOD ORDERABLES LAB[facility]ATORY [facility] [address] [place] [address] * (ABNORMAL) COMPREHENSIVE METABOLIC PANEL (08/01/2023 1:51 PM EST) BUN 16 6 - 20 mg/dL 08/02/2023 12:40 AM EST LABORATORY [facility] Creatinine 0.8 0.5 - 1.0 mg/dL 08/02/2023 12:40 AM EST LABORATORY [facility] Estimated Glomerular Filtration Rate 71 >=60 mL/min 08/02/2023 12:40 AM EST LAB[facility]ATORY [facility] Comment:eGFR is calculated b ased on the CKD-EPI 2020 equation Sodium 134(L) 135 - 146 mmol/L 08/02/2023 12:40 AM EST LAB[facility]ATORY [facility] Potassium 4.4 3.5 - 5.1 mmol/L 08/02/2023 12:40 AM EST [facility] Chloride 97(L) 98 - 107 mmol/L 08/02/2023 12:40 AM EST [facility] CO2 26 22 - 32 mmol/L 08/02/2023 12:40 AM EST [facility] Anion Gap 11 7 - 15 mmol/L 08/02/2023 12:40 AM EST [facility] Glucose 100 70 - 120 mg/dL 08/02/2023 12:40 AM EST [facility] Albumin 4.5 3.8 - 5.0 g/dL 08/02/2023 12:40 AM EST [facility] AST 19 10 - 35 U/L 08/02/2023 12:40 AM EST [facility] Alkaline Phosphatase 110 35 - 130 U/L 08/02/2023 12:40 AM EST [facility] Bilirubin, Total 0.5 <=1.2 mg/dL 08/02/2023 12:40 AM EST [facility] Calcium 9.6 8.4 - 10.2 mg/dL 08/02/2023 12:40 AM EST [facility] Protein 7.4 6.0 - 8.3 g/dL 08/02/2023 12:40 AM EST [facility] ALT 14 10 - 35 U/L 08/02/2023 12:40 AM EST [facility] Blood Venous blood specimen / Unknown Venipuncture / Unknown 08/01/2023 1:51 PM EST 08/01/2023 1:51 PM EST Arlen Reveles DO LAB BLOOD ORDERABLES Performing Organization Address City/[facility] Co de Phone Number [facility] [address] [place] [address] documented in this encounter Visit Diagnoses Diagnosis HTN, goal below 130/80- Primary Unspecified essential hypertension THADDEUS (generalized anxiety disorder) Generalized anxiety disorder Senile osteoporosis Non-healing skin lesion Unspecified disorder of skin and subcutaneous tissue documented in this encounter Care Teams Real Estate Attorney Relationship Specialty Start Date End Date Arlen Reveles DO [address] [place] [address] PCP - General Family Medicine 11/15/22 documented as of this encounter
--- OUTSIDE RECORDS SUMMARY | 2023-12-17 06:26 | External Medical Summary | Summary of Care ---
Author Name Unknown Organization [facility] Address [address] [place] [address] Phone [phone] Care Team Providers Care Manager Culture Name Role Phone Arlen Reveles DO Primary Care Provider + [phone] Reason for Visit * Reason Onset Date Comments Test Results 08/07/202308/07 Encounter Details Date Type Department Care Team (Late st Contact Info) Description 08/07/2023 Telephone Family Practice 65 [facility] [place] [address] [place] [phone] Arlen Reveles DO [address] [place] [address] Test Results (08/07) Allergies Active Allergy Reactions Criticality Noted Date Comments Amoxicillin 09/01/2005 Rash Loratadine-Pseudoephedrin e Er 05/17/2020 rash Hydrocodone Nausea/vomiting High 02/08/2021 Prednisone 05/10/2008 Elevated BP Sulfa Antibiotics 05/02/2013 Urticaria and pruritis. 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 Generalized osteoarthritis 06/18/2003 Senile osteoporosis documented as of this encounter (statuses as of 08/09/2023) Resolved Problems Problem Noted Date Diagnosed Date [...] as of this encounter (statuses as of 08/09/2023) Immunizations Name Administration Dates Next Due COVID-19 mRNA, LNP-s, No Pre serve, 2-Dose Series (FAD ? IO) 09/19/2021,01/03/2021,12/13/2020 Pneumococcal Conjugate Vacc, 13 Valent (Prevnar) [...] encounter Miscellaneous Notes * Telephone Encounter - Violeta Mace LPN - 08/09/2023 10:51 AM EST Patient is aware and will comply. Thank you * Telephone Encounter - Violeta Hernandez RN - 08/07/2023 4:40 PM EST Call to pt-no answer-message left to call back at [phone] * Telephone Encounter - Arlen Reveles DO - 08/07/2023 2:51 PM EST Please let pt know: Her sodium was slightly low on her lab studies. Is she eating ok? I know this had been low in the past after an illness when she wasn't eating well. Recheck in 1 week. documented in this encounter Plan of Treatment Upcoming Encounters Date Type Department Care Team (Late st Contact Info) Description 09/04/2023 2:00 PM EST Imaging Radiology [facility] 1st [facility] [place] [address] [place] [address] 10/30/2023 11:20 AM EST Office Visit Family Practice 65 [facility] [place] [facility] [address] Arlen [facility]veles [facility] [address] 06/17/2024 3:20 PM EDT Office Visit Rheumatology [place] [address] [place] [address] Del Johnson MD [address] [place] [address] Scheduled Orders Name Type Priority Associated Diagnoses Orde r Schedule BASIC METABOLIC PANEL Lab Routine Hyponatremia Expected: 08/07/2023 (Approximate), Expires: 08/06/2024 Health Maintenance Due Date Last Done Comments [...] D LEVEL ONCE IN A LIFETIME-USE SMARTSET# [id number] Completed 08/01/2023, 06/22/2021, 11/03/2010, Additional history exists [...] as of this encounter Visit Diagnoses Diagnosis Hyponatremia- Primary Hyposmolality and/or hyponatremia documented in this encounter Care Teams Manager Culture Relationship Specialty Start Date End Date Arlen Reveles DO [address] [place] [address] PCP - General Family Medicine 11/15/22 documented as of this encounter
--- OUTSIDE RECORDS SUMMARY | 2023-12-17 06:26 | External Medical Summary | Summary of Care ---
Author Name Unknown Organization [facility] Address [address] [place] [address] Phone [phone] Care Team Providers Care Shell Mold Bonder Name Role Phone Arlen Reveles DO Primary Care Provider + [phone] Reason for Visit * Reason Onset Date Comments Test Results Lab 08/22/2023 Lab test Test Results 08/22/202308/22 Encounter Details Date Type Department Care Team (Late st Contact Info) Description 08/22/2023 Telephone Family Practice 65 [facility] [place] [address] [place] [phone] Arlen Reveles DO [address] [place], [place] [id number] Test Results Lab (Lab test); Test Results ... Allergies Active Allergy Reactions Criticality Noted Date Comments Amoxicillin 09/01/2005 Rash Loratadine-Pseudoephedrin e Er 05/17/2020 rash Hydrocodone Nausea/vomiting High 02/08/2021 Prednisone 05/10/2008 Elevated BP Sulfa Antibiotics 05/02/2013 Urticaria and pruritis. documented as of this encounter (statuses as of 08/22/2023) Medications Medication Sig Dispensed Refills Start Date [...] 100 Tablet 3 12/31/2022 12/31/2023 Active Nystatin 139093 UNIT/GM External CreamIndications:C andidal skin infection APPLY TOPICALLY TO AFFECTED AREA TWO TIMES A DAY 30 g 2 11/15/2022 11/15/2023 Active Sertraline HCl 25 MG Oral Tablet (Zoloft) Take 1.5 Tablets by mouth in the morning. 0 08/01/2023 Active LORazepam 0.5 MG Oral Tablet (Ativan)Indication s:THADDEUS (generalized anxiety disorder) Take 1 Tablet by mouth every 8 hours as needed for Anxiety. 90 Tablet 0 08/21/2023 Active documented as of this encounter (statuses as of 08/22/2023) Active Problems Problem Noted Date Diagnosed Date Sjogren's syndrome without extraglandular involv ement 02/12/2020 THADDEUS (generalized anxiety disorder) 12/14/2019 Left asymmetrical SNHL 04/18/2018 HTN, goal below 130/80 08/03/2009 Overview: Modified per HTN protocol #16. Generalized osteoarthritis 06/18/2003 Senile osteoporosis documented as of this encounter (statuses as of 08/22/2023) Resolved Problems Problem Noted Date Diagnosed Date [...] as of this encounter (statuses as of 08/22/2023) Immunizations Name Administration Dates Next Due COVID-19 [...] Telephone Encounter - Genie Moulton LPN - 08/22/2023 3:46 PM EST Call placed to patient and relayed message from Dr. Reveles. Patient acknowledged understanding. No further questions at this time. * Telephone Encounter - Arlen Reveles DO - 08/22/2023 2:50 PM EST Looks like this had been ordered by Dr. Diehl so this is why I did not get it. He sent her a MyGbut she did not read. Her sodium was fine. Kidney function was ok. * Telephone Encounter - Violeta Hernandez RN - 08/22/2023 2:27 PM EST Images from the original note were not included. BMP done 08/19/23: BUN 6 - 20 mg/dL 22 High Creatinine 0.5 - 1.0 mg/dL 0.7 Estimated Glomerular Filtration Rate >=60 mL/min 80 Comment: eGFR is calculated based on the CKD-EPI 2020 equation Sodium 135 - 146 mmol/L 135 Potassium 3.5 - 5.1 mmol/L 4.5 Chloride 98 - 107 mmol/L 101 CO2 22 - 32 mmol/L 24 Anion Gap 7 - 15 mmol/L 10 Glucose 70 - 120 mg/dL 108 Calcium 8.4 - 10.2 mg/dL 9.[address] Reveles for review * Telephone Encounter - Dasha Maier OSA - 08/22/2023 2:18 PM EST Pt calling to get the results of her recent lab test done for sodium. She is asking someone return her call with those results. She can be reached at [phone]. documented in this encounter Plan of Treatment Upcoming Encounters Date Type Department Care Team (Late st Contact Info) Description 09/04/2023 2:00 PM EST Imaging Radiology [address] 132 [facility] [place] [address] 10/30/2023 11:20 AM EST Office Visit Family Practice 65 [facility] [place] [address] [place] [address] Arlen Reveles DO [address] [place] [address] 06/17/2024 3:20 PM EDT Office Visit Rheumatology [address] [place] [address] Del Johnson MD [address] [facility] [place] [address] Health Maintenance Due Date Last Done Comments [...] D LEVEL ONCE IN A LIFETIME-USE SMARTSET# [id number] Completed 08/01/2023, 06/22/2021, 11/03/2010, Additional history exists [...] filedocumented as of this encounter Care Teams Shell Mold Bonder Relationship Specialty Start Date End Date Arlen Reveles DO [place] [address] PCP - General Family Medicine 11/15/22 documented as of this encounter
--- OUTSIDE RECORDS SUMMARY | 2023-12-17 06:26 | External Medical Summary | Summary of Care ---
Author Name Unknown Organization [facility] Address [address] [place] [address] Phone [phone] Care Team Providers Care Director Industrial Nursing Name Role Phone Arlen Reveles DO Primary Care Provider + [phone] Reason for Visit * Reason Onset Date Comments Appointment 08/06/2023 Encounter Details Date Type Department Care Team (Late st Contact Info) Description 08/06/2023 Telephone Dermatology [facility] [address] [address] [facility] [place] [address] Gladys Kaufman MD 200 [facility] [place] [address] Appointment Allergies Active Allergy Reactions Criticality Noted Date [...] 100 Tablet 3 12/31/2022 12/31/2023 Active Nystatin 161081 UNIT/GM External CreamIndications:C andidal skin infection APPLY [...] mRNA, LNP-s, No Pre serve, 2-Dose Series (Ahalogy) 09/19/2021,01/03/2021,12/13/2020 Pneumococcal Conjugate Vacc, 13 Valent (Prevnar) [...] encounter Miscellaneous Notes * Telephone Encounter - Alice Cole OSA - 08/06/2023 12:06 PM EST Spoke to patient and she will come in today to see Dr Kaufman * Telephone Encounter - Alice Cole OSA - 08/06/2023 12:02 PM EST 08/06/23 LMM on home and cell to call to confirm scheduled appt for today at 3pm with DR Kaufman. Ifshdallin cannot come today then will offer her Gen Derm 08/12 at 3:45pm per DR Kaufman * Telephone Encounter - Alice Cole OSA - 08/06/2023 11:58 AM EST Gladys Kaufman MD Please offer today at 3 pm on Mohs side for patient come in for curettage/cryotherapy of lesion at right forearm. If today won't work, please offer SaturdayAugust 12 at 3:45 pm on gen derm side documented in this encounter Plan of Treatment Upcoming Encounters Date Type Department Care Team (Late st Contact Info) Description 08/06/2023 3:00 PM EST Office Visit [facility] Surgery [facility] [address] [place] [address] Gladys Kaufman MD [address] [place] [address] 09/04/2023 2:00 PM EST Imaging Radiology [address] 132 [facility] [place] [address] 10/30/2023 11:20 AM EST Office Visit Family Practice [address] [place] [address] 293 [place] [address] Arlen Reveles DO 293 [place] [address] 06/17/2024 3:20 PM EDT Office Visit Rheumatology [address] [place] [address] Del Johnson MD [address] [facility] [place], [place] [address] Health Maintenance Due Date Last Done Comments [...] D LEVEL ONCE IN A LIFETIME-USE SMARTSET# [id number] Completed 08/01/2023, 06/22/2021, 11/03/2010, Additional history exists [...] filedocumented as of this encounter Care Teams Director Industrial Nursing Relationship Specialty Start Date End Date Arlen Reveles DO [address] [place] [address] PCP - General Family Medicine 11/15/22 documented as of this encounter
--- OUTSIDE RECORDS SUMMARY | 2023-12-17 06:26 | External Medical Summary | Summary of Care ---
Author Name Unknown Organization [facility] Address [address] [place] [address] Phone [phone] Care Team Providers Care Obstetrics Tech Name Role Phone Arlen Helton DO Primary Care Provider + [phone] Reason for Visit * Reason Onset Date Comments Medication Refill 09/02/2023 Encounter Details Date Type Department Care Team (Late st Contact Info) Description 09/02/2023 Refill Family Practice [address] [place] [address] [place] [phone] Arlen Helton DO [address] [place] [address] Allergies Active Allergy Reactions Criticality Noted Date Comments Amoxicillin 09/01/2005 Rash Loratadine-Pseudoephedrin e Er 05/17/2020 rash Hydrocodone Nausea/vomiting High 02/08/2021 Prednisone 05/10/2008 Elevated BP Sulfa Antibiotics 05/02/2013 Urticaria and pruritis. documented as of this encounter (statuses as of 09/03/2023) Medications Medication Sig Dispensed Refills Start Date [...] 100 Tablet 3 12/31/2022 12/31/2023 Active Nystatin 806836 UNIT/GM External CreamIndications :Candidal skin infection APPLY TOPICALLY TO AFFECTED AREA TWO TIMES A DAY 30 g 2 11/15/2022 11/15/2023 Active LORazepam 0.5 MG Oral Tablet (Ativan)Indicati ons:THADDEUS (generalized anxiety disorder) Take 1 Tablet by mouth every 8 hours as needed for Anxiety. 90 Tablet 0 08/21/2023 Active Sertraline HCl 25 MG Oral Tablet (Zoloft) Take 1.5 Tablets by mouth in the morning. 135 Tablet 1 09/03/2023 Active Sertraline HCl 25 MG Oral Tablet (Zoloft) Take 1.5 Tablets by mouth in the morning. 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 Generalized osteoarthritis 06/18/2003 Senile osteoporosis documented as of this encounter (statuses as of 09/03/2023) Resolved Problems Problem Noted Date Diagnosed Date [...] as of this encounter (statuses as of 09/03/2023) Immunizations Name Administration Dates Next Due COVID-19 [...] encounter Miscellaneous Notes * Telephone Encounter - Annel Solano [facility] - 09/03/2023 8:29 AM EST Signed Prescriptions: Disp Refills Sertraline HCl 25 MG Oral Tablet (Zoloft) 135 Ta*1 Sig: Take 1.5Tablets by mouth in the morning.Authorizing Provider: ARLEN HELTON User: ANNEL SOLANO * Telephone Encounter - Annel Solano RP - 09/03/2023 8:28 AM EST Per 08/01/23 OV - "Pt encouraged to stay on the 1.5 tablets of Zoloft as it has worked well for her. " Refills approved. Thanks, Annel Solano, PharmD Clinical Pharmacist [facility] [phone] 09/03/2023, 8:28 AM * Telephone Encounter - Gloria Dodson CPhT - 09/02/2023 9:22 AM EST Medication(s) is/are listed as "Historical". Pt confirmed the current dosage, directions, and qty that they are normally prescribed, as reflected in the pending order below. This is also indicated from encounter on 08/01/2023. Confirmed patient has been seen within the last year.. Please review andapprove if appropriate. Pending Prescriptions: Disp Refills Sertraline HCl 25 MG Oral Tablet (Zoloft) 135 Ta*1 Sig: Take 1.5 Tablets by mouth in the morning. Last Visit: 08/01/2023 (in office), Visit date not found (telemedicine) Next Visit: 10/30/2023 If no future appointments scheduled, and last appointment is greater than a year ago, please schedule patient for a follow-up appointment Last date the medication was ordered: Historical Patient Phone Numbers Labs: Lab Results Component [...] Description 09/04/2023 2:00 PM EST Imaging Radiology [facility] 1st [facility] 132 [facility] [place] [address] 10/30/2023 11:20 AM EST Office Visit Family Practice 65 [facility] 293 [place] [address] Arlen Helton DO 293 [place] [address] 06/17/2024 3:20 PM EDT Office Visit Rheumatology [place] [phone] [facility] [address] Del Johnson MD [address] [facility] [place] [address] Health Maintenance Due Date Last Done Comments [...] D LEVEL ONCE IN A LIFETIME-USE SMARTSET# [id number] Completed 08/01/2023, 06/22/2021, 11/03/2010, Additional history exists [...] filedocumented as of this encounter Care Teams Obstetrics Tech Relationship Specialty Start Date End Date Arlen Helton DO [address] [place] [address] PCP - General Family Medicine 11/15/22 documented as of this encounter
--- OUTSIDE RECORDS SUMMARY | 2023-12-17 06:26 | External Medical Summary | Summary of Care ---
Author Name Unknown Organization [facility] Address [address] [place] [address] Phone [phone] Care Team Providers Care Community Service Manager Name Role Phone Arlen Reveles DO Primary Care Provider + [phone] Reason for Visit * Reason Comments NEW PATIENT Patient here for a l esion on her right forearm she says has been there a few weeks. She says it's nontender. * Evaluate & Treat - Unlimited Visits (Within 3 days (urgent)) - Authorized Specialty Diagnoses / Procedures Referred By Contcary t Referred To Contact Dermatology Diagnoses Non-healing skin lesion Arlen Reveles DO [address] [place] [address] Referral ID Status Reason Start Date Expiration Date Visits Requested Visits Authorized [id number] Authorized Specialty Services Required 3 [phone] Encounter Details Date Type Department Care Team (Late st Contact Info) Description 08/01/2023 3:00 PM EST Office Visit Dermatology [facility] [place] [address] [place] [address] Gladys Kaufman MD [address] [place] [address] Skin lesion* Allergies Active Allergy Reactions Criticality Noted Date Comments Amoxicillin 09/01/2005 Rash Loratadine-Pseudoephedrin e Er 05/17/2020 rash Hydrocodone Nausea/vomiting High 02/08/2021 Prednisone 05/10/2008 Elevated BP Sulfa Antibiotics 05/02/2013 Urticaria and pruritis. documented as of this encounter (statuses as of 08/04/2023) Medications Medication Sig Dispensed Refills Start Date [...] 0 Active Hydrocortisone (Perianal) 2.5 % External CreamIndications:Hem orrhoids, external without complications ADMINISTER INTO THE RECTUM 2 TIMES A DAY 28 g 0 08/04/2022 08/04/2023 Active ICaps AREDS Formula Oral Tablet Take twice daily with food 0 11/15/2022 Active Calcium Carbonate 600 MG Oral Tablet Take 1 Tablet by mouth every evening. 0 Active Felodipine ER 5 MG Oral Tablet Extended Release 24 Hour (Plendil) TAKE ONE TABLET BY MOUTH IN THE MORNING 100 Tablet 3 12/31/2022 12/31/2023 Active Nystatin 225205 UNIT/GM External CreamIndications:Can didal skin infection APPLY TOPICALLY TO AFFECTED AREA TWO TIMES A DAY 30 g 2 11/15/2022 11/15/2023 Active LORazepam 0.5 MG Oral Tablet (Ativan)Indications: THADDEUS (generalized anxiety disorder) Take 1 Tablet by mouth every 8 hours as needed for Anxiety. 90 Tablet 0 07/09/2023 Active Sertraline HCl 25 MG Oral Tablet (Zoloft) Take 1.5 Tablets by mouth in the morning. 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 Generalized osteoarthritis 06/18/2003 Senile osteoporosis documented as of this encounter (statuses as of 08/04/2023) Resolved Problems Problem Noted Date Diagnosed Date Resolved Date Other chronic sinusitis 04/18/2018 02/02/2021 Carpal tunnel syndrome of left wrist 03/05/2018 [...] as of this encounter (statuses as of 08/04/2023) Immunizations Name Administration Dates Next Due COVID-19 mRNA, LNP-s, No Pre serve, 2-Dose Series (Availigent) 09/19/2021,01/03/2021,12/13/2020 Pneumococcal Conjugate Vacc, 13 Valent (Prevnar) [...] on file documented as of this encounter Progress Notes * Gladys Kaufman MD - 08/01/2023 3:19 PM EST SUBJECTIVE: History of Present Illness: Lisa Rios is a 88 year old female seen today for evaluation of a lesion of concern on her right forearm that has been present for a few weeks. REVIEW OF SYSTEMS: SKIN: No other new or changing moles. HEME/LYMPH: No new or enlarging lumps or bumps. MEDICA TIONS: Current Outpatient Medications Medication Sig Dispense Refill [...] IN THE MORNING 100 Tablet 3 Nystatin 501179 UNIT/GM External Cream APPLY TOPICALLY TO AFFECTED AREA TWO TIMES A DAY 30 g 2 LORazepam 0.5 MG Oral Tablet (Ativan) Take 1 Tablet by mouth every 8 hours as needed for Anxiety. 90 Tablet 0 Sertraline HCl 25 MG Oral Tablet (Zoloft) Take 1.5 Tablets by mouth in the morning. No current facility-administered medications for this visit. ALLERG IES: Hydrocodone, Amoxicillin, Claritin-d 12 hour [loratadine-pseudoephedrine er], Prednisone, and Sulfaantibiotics OBJECTIVE: GEN: Healthy, alert, no distress, appears oriented, pleasant, and cooperative. SKIN: Limited exam of right forearm completed: 1. Right forearm: ~ 7 mm pink papule ASSESS MENT/PLAN: 1. Lesion A. Right forearm. Favor irritated seborrheic keratosis, r/o malignancy Shave Biopsy of the lesion noted above to establish and confirm diagnosis. The procedure, risks, benefits, alternatives and expected outcomes were discussed with the patient and consent was obtained.Time out called. Patient identified, procedure verified, site identified and verified. Patient and staff present in agreement. Area prepped with alcohol and anesthetized with 0.5% lidocaine with epinephrine at 1:200,000 concentration. Biopsy of lesion performed. 20% AlCl and bandaging applied. Specimen sent to pathology. Patient instructed in routine post-op care. Follow-up: will adjust with lab/path results The patient was encouraged to contact me with any further questions or concerns. Gladys Kaufman MD 08/01/2023 documented in this encounter Nursing Notes * Malena Rowell, MICK - 08/01/2023 3:06 PM EST Patient identified by name and date of . Do you have any concerns about pain management for today's visit? No Living Will or Advance Directive for Health Care as noted on problem list. [facility] is a way you can talk to your provider online through e-mail. Would you like to sign up? I can activate it for you? ALREADY ACTIVE Chief Complaint Patient presents with NEW PATIENT Patient here for a lesion on her right forearm she says has been there a few weeks. She says it's nontender. documented in this encounter Plan of Treatment Upcoming Encounters Date Type Department Care Team (Late st Contact Info) Description 09/04/2023 2:00 PM EST Imaging Radiology [address] 132 [facility] [place] [address] 10/30/2023 11:20 AM EST Office Visit Family Practice 65 [facility] 293 [place] [address] Arlen Reveles DO 293 [place] [address] 06/17/2024 3:20 PM EDT Office Visit Rheumatology [place] [address] [place] [address] Del Johnson MD [address] [facility] [place] [address] Pending Results Name Type Priority Associated Diagnoses Date /Time SURGICAL PATHOLOGY Pathology Routine Skin lesion 08/01/2023 3:27 PM EST Health Maintenance Due Date Last Done [...] D LEVEL ONCE IN A LIFETIME-USE SMARTSET# [id number] Completed 08/01/2023, 06/22/2021, 11/03/2010, Additional history exists [...] as of this encounter Visit Diagnoses Diagnosis Skin lesion- Primary Unspecified disorder of skin and subcutaneous tissue documented in this encounter Care Teams Community Service Manager Relationship Specialty Start Date End Date Arlen Reveles DO [address] [place] [address] PCP - General Family Medicine 11/15/22 documented as of this encounter
--- OUTSIDE RECORDS SUMMARY | 2023-12-17 06:26 | External Medical Summary ---
Author Name Unknown Address Unknown Organization K01:[place] [facility] [place] [facility] [address] [place] [address] Laboratory Report Ordering Provider Test Date Status ANTONELLA MENDES 08/19/2023 11:26:50 Final Observation Date Value Abnormality Reference (Units ) Status BUN 08/19/2023 11:26:50 22 Above high normal 6-20 (mg/dL) Final Creatinine 08/19/2023 11:26:50 0.7 0.5-1.0 (mg/dL) Final Glomerular filtration rate/1.73 sq M.predicted [Volume Rate/Area] in Serum, Plasma or Blood by Creatinine-based formula (CKD-EPI) 08/19/2023 11:26:50 80 >=60 (mL/min) Final eGFR is calculated based on the CKD-EPI 2020 equation SODIUM 08/19/2023 11:26:50 135 135-146 (m mol/L) Final Potassium 08/19/2023 11:26:50 4.5 3.5-5.1 (m mol/L) Final Cl 08/19/2023 11:26:50 101 98-107 (mm ol/L) Final CO2 08/19/2023 11:26:50 24 22-32 (mmo l/L) Final Anion gap 08/19/2023 11:26:50 10 7-15 (mmol /L) Final Glucose 08/19/2023 11:26:50 108 70-120 (mg /dL) Final Calcium 08/19/2023 11:26:50 9.3 8.4-10.2 ( mg/dL) Final Performing Location [facility] [place] [address] [place] [address]
--- OUTSIDE RECORDS SUMMARY | 2023-12-17 06:26 | External Medical Summary | Summary of Care ---
Author Name Unknown Organization [facility] Address [address] [place] [address] Phone [phone] Care Team Providers Care Log Brander Name Role Phone Arlen Helton DO Primary Care Provider + [phone] Reason for Visit * Reason Onset Date Comments Medication Refill 08/20/2023 Encounter Details Date Type Department Care Team (Late st Contact Info) Description 08/20/2023 Refill Family Practice [address] [place] [address] [place] [phone] Arlen Helton DO [address] [place] [address] THADDEUS (generalized anxiety disorder) Allergies Active Allergy Reactions Criticality Noted Date Comments Amoxicillin 09/01/2005 Rash Loratadine-Pseudoephedrin e Er 05/17/2020 rash Hydrocodone Nausea/vomiting High 02/08/2021 Prednisone 05/10/2008 Elevated BP Sulfa Antibiotics 05/02/2013 Urticaria and pruritis. documented as of this encounter (statuses as of 08/21/2023) Medications Medication Sig Dispensed Refills Start Date [...] 100 Tablet 3 12/31/2022 12/31/2023 Active Nystatin 641645 UNIT/GM External CreamIndications :Candidal skin infection APPLY TOPICALLY TO AFFECTED AREA TWO TIMES A DAY 30 g 2 11/15/2022 11/15/2023 Active Sertraline HCl 25 MG Oral Tablet (Zoloft) Take 1.5 Tablets by mouth in the morning. 0 08/01/2023 Active LORazepam 0.5 MG Oral Tablet (Ativan)Indicati ons:THADDEUS (generalized anxiety disorder) Take 1 Tablet by mouth every 8 hours as needed for Anxiety. 90 Tablet 0 08/21/2023 Active LORazepam 0.5 MG Oral Tablet (Ativan)Indicati ons:THADDEUS (generalized anxiety disorder) Take 1 Tablet by mouth every 8 hours as needed for Anxiety. 90 Tablet 0 07/09/2023 08/20/2023 Discontinued (Refill) documented as of this encounter (statuses as of 08/21/2023) Active Problems Problem Noted Date Diagnosed Date Sjogren's syndrome without extraglandular involv ement 02/12/2020 THADDEUS (generalized anxiety disorder) 12/14/2019 Left asymmetrical SNHL 04/18/2018 HTN, goal below 130/80 08/03/2009 Overview: Modified per HTN protocol #16. Generalized osteoarthritis 06/18/2003 Senile osteoporosis documented as of this encounter (statuses as of 08/21/2023) Resolved Problems Problem Noted Date Diagnosed Date [...] as of this encounter (statuses as of 08/21/2023) Immunizations Name Administration Dates Next Due COVID-19 mRNA, LNP-s, No Pre serve, 2-Dose Series ([employer]) 09/19/2021,01/03/2021,12/13/2020 Pneumococcal Conjugate Vacc, 13 Valent (Prevnar) [...] Telephone Encounter - Arlen Helton DO - 08/21/2023 4:47 PM ESTSigned Prescriptions: Disp Refills LORazepam 0.5 MG Oral Tablet (Ativan) 90 Tab*0 Sig: Take 1 Tablet by mouth every 8 hours as needed for Anxiety.Authorizing Provider: ARLEN HELTON * Telephone Encounter - Arlen Helton DO - 08/21/2023 4:47 PM EST Rx sent. I have reviewed the patients controlled substance dispensing history in the Prescription Drug Monitoring Program in compliance with the [facility] regulations before prescribing a controlled substance. Last Tox Screen Results: No results found for this or any previous visit. * Telephone Encounter - Wagner Martinez [facility] - 08/21/2023 9:20 AM EST Pending Prescriptions: Disp Refills LORazepam 0.5 MG Oral Tablet (Ativan) 90 Tab*0 Sig: Take 1 Tablet by mouth every 8 hours as needed for Anxiety. * Telephone Encounter - Wagner Martinez [facility] - 08/21/2023 9:19 AM EST I have reviewed the patients controlled substance dispensing history in the Prescription Drug Monitoring Program in compliance with the [facility] regulations before prescribing a controlled substance. PDMP checked on 08/21/2023. Pending Prescriptions: Disp Refills LORazepam 0.5 MG Oral Tablet (Ativan) 90 Tab*0 Sig: Take 1 Tablet by mouth every 8 hours as needed for Anxiety. Last Visit: 08/01/2023 (in office), Visit date not found (telemedicine) Next Visit: 10/30/2023 Date medication was last filled: 07/12 Date medication is due for refill: 08/10 Pharmacy: [facility] Is this request for a controlled substance? Yes and Urine Drug Screen Not completed Toxicology results: No results found for this or any previous visit. Please approve if appropriate. Thanks, Wagner Martinez, PharmD Clinical Pharmacist [facility](formerly telepharmacy) [phone] 08/21/2023, 9:19 AM * Telephone Encounter - Dasha Field, NICKY - 08/20/2023 1:18 PM EST Pending Prescriptions: Disp Refills LORazepam 0.5 MG Oral Tablet (Ativan) 90 Tab*0 Sig: Take 1 Tablet by mouth every 8 hours as needed for Anxiety. Last Visit: 08/01/2023 (in office), Visit date not found (telemedicine) Next Visit: 10/30/2023 Last date the medication was ordered Patient Active Problem List Diagnosis Code Generalized osteoarthritis M15.9 HTN, goal below 130/80 I10 Left asymmetrical SNHL [id number] THADDEUS (generalized anxiety disorder) F41.1 Sjogren's syndrome without extraglandular involvement (HCC) M35.00 Senile osteoporosis M81.0 Labs: Lab Results Component Value Date/Time CREATININE - [facility] 0.7 08/19/2023 11:26 AM CREATININE - [facility] 0.7 03/08/2020 08:36 AM CREATININE, RANDOM URINE - [facility] 57 08/04/2022 11:57 AM CREATININE-OUTSIDE LAB 0.55 (A) 11/21/2021 12:00 AM Lab Results Component Value Date/Time POTASSIUM 4.1 12/04/1996 09:25 AM POTASSIUM - [facility] 4.5 08/19/2023 11:26 AM POTASSIUM - [facility] 3.9 03/08/2020 08:36 AM POTASSIUM-OUTSIDE LAB 3.5 11/21/2021 12:00 AM Lab Results Component Value Date/Time TSH - [facility] 2.59 11/03/2010 10:15 AM TSH - OUTSIDE LAB 2.690 04/16/2018 12:00 AM Lab Results Component Value Date/Time LDL CHOLESTEROL (CALCULATED) - [facility] 133 (H) 08/01/2023 01:51 PM LDL CHOLESTEROL (CALCULATED) - [facility] 140 (H) 11/28/2015 09:06 AM LDL CHOLESTEROL (CALCULATED) - [facility] 109 11/24/2014 10:02 AM LDL CHOLESTEROL (DIRECT MEASURE) - [facility] 144 (H) 11/03/2010 10:15 AM Lab Results Component Value Date/Time ALT - [facility] 14 08/01/2023 01:51 PM ALT - [facility] 11 11/24/2014 10:02 AM Hemoglobin AIC Results: Lab Results Component Value Date/Time HEMOGLOBIN A1C - [facility] 5.4 03/08/2020 08:36 AM documented in this encounter Plan of Treatment Upcoming Encounters Date Type Department Care Team (Late st Contact Info) Description 09/04/2023 2:00 PM EST Imaging Radiology [facility], [place] [address] [facility] [place] [address] 10/30/2023 11:20 AM EST Office Visit Family [facility] [address], [place] [facility] [phone] [facility] [address] 06/17/2024 3:20 PM EDT Office [address]umatology [address] [address] Del Johnson MD [address] [facility] [address] Health Maintenance Due Date Last Done Comments [...] D LEVEL ONCE IN A LIFETIME-USE SMARTSET# [id number] Completed 08/01/2023, 06/22/2021, 11/03/2010, Additional history exists [...] disorder documented in this encounter Care Teams Log Brander Relationship Specialty Start Date End Date Arlen Helton DO [address] [place] [address] PCP - General Family Medicine 11/15/22 documented as of this encounter
--- OUTSIDE RECORDS SUMMARY | 2023-12-17 06:26 | External Medical Summary | Summary of Care ---
Author Name Unknown Organization [facility] Address [address] [place] [address] Phone [phone] Care Team Providers Care Report Checker Name Role Phone Arlen Reveles DO Primary Care Provider + [phone] Reason for Visit * Reason Comments Lesion Curette lesion on R arm. Encounter Details Date Type Department Care Team (Late st Contact Info) Description 08/06/2023 3:00 PM EST Office Visit [facility] Surgery [facility] [address] [place] [address] Gladys Kaufman MD [address] [place] [address] Actinic keratosis* Allergies Active Allergy Reactions Criticality Noted Date [...] 100 Tablet 3 12/31/2022 12/31/2023 Active Nystatin 888716 UNIT/GM External CreamIndications:C andidal skin infection APPLY [...] Progress Notes * Gladys Kaufman MD - 08/07/2023 5:34 PM EST SUBJECTIVE: History of Present Illness: Lisa Rios is a 88 year old female seen today for curettage/cryotherapy of a biopsy proven hypertrophic actinic keratosis on her right forearm. A. Skin, right forearm, shave: Hypertrophic actinic keratosis (see comment) Comment: Islands of atypical keratinocytes are identified in the superficial dermis. It is favored that these islands connect to the overlying epidermis in another plane of section opposed to representing definitive invasion. MEDICA TIONS: Current Outpatient Medications Medication Sig [...] IN THE MORNING 100 Tablet 3 Nystatin 149281 UNIT/GM External Cream APPLY TOPICALLY TO AFFECTED [...] distress, appears oriented, pleasant, and cooperative. SKIN: Right forearm: ~ 7 mm open biopsy site ASSESS MENT/PLAN: 1. hypertrophic actinic keratosis, right forearm Curettage of the lesion . The procedure, risks, benefits, alternatives and expected outcomes were discussed with the patient and consent was obtained. Patient identified, procedure verified, site identified and verified. Confirmed immediately prior to procedure. Area prepped with alcohol and anesthetized using 0.5% lidocaine with epinephrine at 1:200,000 concentration. Curettage performed for cure. 20% AlCl and bandaging applied. Patient instructed in routine post-op care. Size of lesion: 7 mm Size of wound after currettage: 9 mm Base treated with cryotherapy Follow-up: as needed The patient was encouraged to contact me with any further questions or concerns. Gladys Kaufman MD 08/06/23 documented in this encounter Nursing Notes * Deb Das LPN - 08/06/2023 3:05 PM EST Chief Complaint Patient presents with Lesion Curette lesion on R arm. documented in this encounter Plan of Treatment Upcoming Encounters Date Type Department Care Team (Late st Contact Info) Description 09/04/2023 2:00 PM EST Imaging Radiology [address] [facility] [place] [address] 10/30/2023 11:20 AM EST Office Visit Family Practice [address] [place] [address] [address] [facility] [phone] Arlen Reveles DO [address] [facility] [address] 06/17/2024 3:20 PM EDT Office Visit Rheumatology [place] [address] [place] [address] Del Johnson MD [facility] [place] [address] Health Maintenance Due Date Last Done Comments [...] D LEVEL ONCE IN A LIFETIME-USE SMARTSET# [id number] Completed 08/01/2023, 06/22/2021, 11/03/2010, Additional history exists [...] as of this encounter Visit Diagnoses Diagnosis Actinic keratosis- Primary documented in this encounter Care Teams Report Checker Relationship Specialty Start Date End Date Arlen Reveles DO [address] [place] [place] [address] PCP - General Family Medicine 11/15/22 documented as of this encounter
--- OUTSIDE RECORDS SUMMARY | 2023-12-17 06:27 | External Medical Summary | Summary of Care ---
Author Name Unknown Organization [facility] Address [address] [place] [address] Phone [phone] Care Team Providers Care Cloth Washer Back Tender Name Role Phone Arlen Reevles DO Primary Care Provider + [phone] Reason for Referral * Evaluate & Treat - Unlimited Visits (Within 3 days (urgent)) - Authorized Specialty Diagnoses / Procedures Referred By Sánchez bryson Referred To Contact Dermatology Diagnoses Non-healing skin lesion Arlen Reveles DO [address] [place] [address] Referral ID Status Reason Start Date Expiration Date Visits Requested Visits Authorized [id number] Authorized Specialty Services Required 3 999 999 [...] PM EST Office Visit Family Practice 65 [facility] [place] [address] [place] [phone] Arlen Reveles DO [address] [place] [address] HTN, goal below 130/80*; THADDEUS (generalized anxiety disorder); Senile osteoporosis; Non-healing skin lesion Allergies Active Allergy Reactions Criticality Noted Date Comments Amoxicillin 09/01/2005 Rash Loratadine-Pseudoephedrin e Er 05/17/2020 rash Hydrocodone Nausea/vomiting High 02/08/2021 Prednisone 05/10/2008 Elevated BP Sulfa Antibiotics 05/02/2013 Urticaria and pruritis. 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 Generalized osteoarthritis 06/18/2003 Senile osteoporosis documented as of this encounter (statuses as of 08/01/2023) Resolved Problems Problem Noted Date Diagnosed Date [...] as of this encounter (statuses as of 08/01/2023) Immunizations Name Administration Dates Next Due COVID-19 [...] goal below 130/80 I10 Left asymmetrical SNHL [id number] THADDEUS (generalized anxiety disorder) F41.1 Sjogren's syndrome [...] NA SOLN Twice daily for sinus Nystatin 176500 UNIT/GM External Cream APPLY TOPICALLY TO AFFECTED [...] 08/01/2023 3:00 PM EST Office Visit Dermatology [facility] [address] [facility] [place] [address] Gladys Kaufman MD [address] [place] [place] [address] 09/04/2023 2:00 PM EST Imaging Radiology [address] [facility] [place] [address] 10/30/2023 11:20 AM EST Office Visit Family Practice 65 [facility] 293 [facility] [place] [address] Arlen eRveles DO [address] [facility] [address] 06/17/2024 3:20 PM EDT Office Visit Rheumatology [place] [address] [facility] [place] [address] Del Johnson MD [address] [facility] [place] [address] Pending Results Name Type Priority Associated Diagnoses Date /Time COMPREHENSIVE METABOLIC PANEL Lab Routine HTN, goal below 130/80 08/01/2023 1:51 PM EST CBC WITH WBC DIFFERENTIAL Lab Routine HTN, goal below 130/80 08/01/2023 1:51 PM EST LIPID PANEL WITH DIRECT LDL IF TG IS HIGH Lab Routine HTN, goal below 130/80 08/01/2023 1:51 PM EST CBC Lab Routine HTN, goal below 130/80 08/01/2023 1:51 PM EST DIFFERENTIAL, AUTOMATED Lab Routine HTN, goal below 130/80 08/01/2023 1:51 PM EST Scheduled Orders Name Type Priority Associated Diagnoses Orde r Schedule COMPREHENSIVE METABOLIC PANEL Lab Routine HTN, goal below 130/80 Expected: 08/01/2023 (Approximate), Expires: 07/31/2024 CBC WITH WBC DIFFERENTIAL Lab Routine HTN, goal below 130/80 Expected: 08/01/2023 (Approximate), Expires: 08/01/2024 LIPID PANEL WITH DIRECT LDL IF TG IS HIGH Lab Routine HTN, goal below 130/80 Expected: 08/01/2023, Expires: 08/01/2024 Scheduled Referrals Name Type Priority Associated Diagnoses Orde r Schedule DERMATOLOGY REFERRAL OP Referral Within 3 days (urgent) Non-healing skin lesion Ordered: 08/01/2023 Health Maintenance Due Date Last Done Comments COVID-19 Vaccine ( season) 2023 09/19/2021, 01/03/2021, 12/13/2020 Depression Screening 07/04/2024 07/04/2023 DXA Scan 10/22/2024 10/22/2022, 02/15, 01/04/2015, Additional history exists Albumin/Creatinine Ratio 08/04/2025 08/04/2022 DTaP,Tdap,and Td Vaccines (3 - Td or Tdap) 11/15/2032 11/15/2022, 05/07/2012, 12/29/2004, Additional history exists Pneumococcal Vaccine: 65+ Years Completed 06/01/2015, 06/21/2008, 03/31/1999 Zoster Vaccines Completed 04/20/2019, 12/15, 06/13/2012 VITAMIN D LEVEL ONCE IN A LIFETIME-USE SMARTSET# [id number] Completed 06/22/2021, 11/03/2010, 11/10/2009 Influenza Vaccine (FLU shot) Completed 11/2022, 05/29/2022, 06/22/2021, Additional history exists GARDASIL-HPV IMMUNIZATION SERIES Aged [...] tissue documented in this encounter Care Teams Cloth Washer Back Tender Relationship Specialty Start Date End Date Arlen Reveles DO [address] [place] [address] PCP - General Family Medicine 11/15/22 documented as of this encounter
--- OUTSIDE RECORDS SUMMARY | 2023-12-17 06:27 | External Medical Summary ---
Author Name Unknown Address Unknown Organization K01:LAB[facility]ORY [facility] [place] - [facility] [place] [address] [facility] [place] [address] Laboratory Report Ordering Provider Test Date Status DANIE COBOS 08/01/2023 13:51:26 Final Observation Date Value Abnormality Reference (Units ) Status WBC, Total 08/01/2023 13:51:26 8.53 4.00-10.80 (K/uL) Final RBC 08/01/2023 13:51:26 4.67 3.85-5.15 (M/uL) Final Hemoglobin 08/01/2023 13:51:26 14.3 12.0-15.3 (g/dL) Final HCT 08/01/2023 13:51:26 43.6 36.0-45.2 (%) Final MCV 08/01/2023 13:51:26 93.4 81.5-97.5 (fL) Final MCH 08/01/2023 13:51:26 30.6 27.0-34.0 (pg) Final MCHC 08/01/2023 13:51:26 32.8 32.0-36.0 (g/dL) Final RDW 08/01/2023 13:51:26 13.2 11.5-15.5 (%) Final Platelets 08/01/2023 13:51:26 288 140-400 (K/uL) Final MPV 08/01/2023 13:51:26 9.1 6.6-11.1 (fL) Final Nucleated erythrocytes/100 leukocytes [Ratio] in Blood by Automated count 08/01/2023 13:51:26 0 <=0 (/100 WBCs) Final Performing Location LABORATORY [facility] [place] - [address] [facility] [place] [address]
--- OUTSIDE RECORDS SUMMARY | 2023-12-17 06:27 | External Medical Summary ---
Author Name Unknown Address Unknown Organization K01:LABORATORY [place] - [address] [place] [address] Laboratory Report Ordering Provider Test Date Status ANTONELLA MENDES 08/01/2023 13:51:26 Final Deficient: <20 ng/mL
Ins ufficient: 20-29 ng/mL
Recommended/Optimum:30-50 ng/mL

Vitamin D intoxication is rare. If suspicious of Vitamin D toxicity, evaluation of serum Calcium and PTH is recommended. Observation Date Value Abnormality Reference (Units ) Status 25-OH Vitamin D total 08/01/2023 13:51:26 36 >19 (ng/mL) Final Performing Location LABORATORY [facility] - [address] [place] [address]
--- OUTSIDE RECORDS SUMMARY | 2023-12-17 06:27 | External Medical Summary ---
Author Name Unknown Address Unknown Organization K01:[facility]ORY [facility] [place] - [address] [facility] [address] Laboratory Report Ordering Provider Test Date Status DANIE COBOS 08/01/2023 13:51:26 Final Observation Date Value Abnormality Reference (Units ) Status SYNC LEUKOCYTES IN BLOOD BY AUTOMATED COUNT 08/01/2023 13:51:26 8.53 4.00-10.80 (K/uL) Final Segs 08/01/2023 13:51:26 70.1 40.0-75.0 (%) Final Lymphs % 08/01/2023 13:51:26 18.6 18.0-42.0 (%) Final Monos 08/01/2023 13:51:26 9.1 1.0-11.0 (%) Final Eosinophils 08/01/2023 13:51:26 1.3 0.0-6.0 (%) Final Basos 08/01/2023 13:51:26 0.4 0.0-2.0 (%) Final Immature Granulocyte, Percent 08/01/2023 13:51:26 0.5 0.0-2.0 (%) Final Absolute Segs 08/01/2023 13:51:26 5.98 1.80-7.70 (K/uL) Final Lymphs, absolute 08/01/2023 13:51:26 1.59 1.00-4.80 (K/ul) Final Monos, Abs 08/01/2023 13:51:26 0.78 0.00-1.10 (K/uL) Final Eos, Abs 08/01/2023 13:51:26 0.11 0.00-0.70 (K/uL) Final Basos, Abs 08/01/2023 13:51:26 0.03 0.00-0.20 (K/uL) Final Immature Granulocytes, Number 08/01/2023 13:51:26 0.04 0.00-0.20 (K/uL) Final Performing Location LABORATORY [facility] [place] - [address] [facility] [address]
--- OUTSIDE RECORDS SUMMARY | 2023-12-17 06:27 | External Medical Summary ---
Author Name Unknown Address Unknown Organization K01:[facility] [place] - [address] [place] [id number] Laboratory Report Ordering Provider Test Date Status DANIE COBOS 08/01/2023 13:51:26 Final Observation Date Value Abnormality Reference (Units ) Status BUN 08/01/2023 13:51:26 16 6-20 (mg/dL) Final Creatinine 08/01/2023 13:51:26 0.8 0.5-1.0 (mg/dL) Final Glomerular filtration rate/1.73 sq M.predicted [Volume Rate/Area] in Serum, Plasma or Blood by Creatinine-based formula (CKD-EPI) 08/01/2023 13:51:26 71 >=60 (mL/min) Final eGFR is calculated based on the CKD-EPI 2020 equation SODIUM 08/01/2023 13:51:26 134 Below low normal 135 -146 (mmol/L) Final Potassium 08/01/2023 13:51:26 4.4 3.5-5.1 (m mol/L) Final Cl 08/01/2023 13:51:26 97 Below low normal 98- 107 (mmol/L) Final CO2 08/01/2023 13:51:26 26 22-32 (mmo l/L) Final Anion gap 08/01/2023 13:51:26 11 7-15 (mmol /L) Final Glucose 08/01/2023 13:51:26 100 70-120 (mg /dL) Final Albumin 08/01/2023 13:51:26 4.5 3.8-5.0 (g /dL) Final AST (Aspartate aminotransferase) 08/01/2023 13:51:26 19 10-35 (U/L) Fin al Alk Phos 08/01/2023 13:51:26 110 35-130 (U/ L) Final Bilirubin, Total 08/01/2023 13:51:26 0.5 <=1 .2 (mg/dL) Final Calcium 08/01/2023 13:51:26 9.6 8.4-10.2 ( mg/dL) Final Protein 08/01/2023 13:51:26 7.4 6.0-8.3 (g /dL) Final ALT (Alanine aminotransferase) 08/01/2023 13:51:26 14 10-35 (U/L) Stanley rodas Performing Location [facility] [place] - [address] [facility] [address]
--- OUTSIDE RECORDS SUMMARY | 2023-12-17 06:27 | External Medical Summary ---
Author Name Unknown Address Unknown Organization K01:[facility] [place] [address] [facility] [address] Laboratory Report Ordering Provider Test Date Status DANIE COBOS 08/01/2023 13:51:26 Final Observation Date Value Abnormality Reference (Units ) Status Triglyceride 08/01/2023 13:51:26 97 <=174 ( mg/dL) Final Triglyceride Reference Range s (mg/dL):
<150 Acceptable
150-174 Borderline high
175-499 High
>=500 Very high Cholesterol 08/01/2023 13:51:26 200 Above high normal <200 (mg/dL) Final Total Cholesterol Reference Ranges (mg/dL):
<200 Desirable
200-239 Borderline high
>=240 High HDL 08/01/2023 13:51:26 48 Below low normal >49 (mg/dL) Final HDL Cholesterol Reference Ra nges (mg/dL):
>=60 High (Desirable)
<50 Low (Undesirable) For Females
<40 Low (Undesirable) For Males NON-HDL CHOLESTEROL 08/01/2023 13:51:26 152 <=159 (mg/dL) Final Non-HDL Cholesterol Referenc e Range (mg/dL):
<100 Target level for high risk ASCVD patient
<130 Optimal for general population
130-159 Near optimal for general population
160-189 Borderline High
190-219 High
>=220 Very High LDL, (calculated) 08/01/2023 13:51:26 133 Above high n ormal <=129 (mg/dL) Final LDL Cholesterol Reference Ra nges (mg/dL):
<70 Target level for high risk ASCVD patient
<100 Optimal for general population
100-129 Near optimal for general population
130-159 Borderline high
160-189 High
>=190 Very high Performing Location LABORATORY [facility] [place] - [address] [facility] [address]
--- OUTSIDE RECORDS SUMMARY | 2023-12-17 06:28 | External Medical Summary | Summary of Care ---
Author Name Unknown Organization [facility] Address [address] [place] [address] Phone [phone] Care Team Providers Care Esl Professor Name Role Phone Arlen Helton DO Primary Care Provider + [phone] Reason for Visit * Reason Onset Date Comments Order Request 07/19/2023 Encounter Details Date Type Department Care Team (Late st Contact Info) Description 07/19/2023 Telephone Family Practice [facility], [place] [address] [place] [address] Arlen Helton DO [address] [place] [address] Order Request Allergies Active Allergy Reactions Criticality Noted Date Comments Amoxicillin 09/01/2005 Rash Loratadine-Pseudoephedrin e Er 05/17/2020 rash Hydrocodone Nausea/vomiting High 02/08/2021 Prednisone 05/10/2008 Elevated BP Sulfa Antibiotics 05/02/2013 Urticaria and pruritis. documented as of this encounter (statuses as of 07/19/2023) Medications Medication Sig Dispensed Refills Start Date [...] 100 Tablet 3 12/31/2022 12/31/2023 Active Nystatin 265967 UNIT/GM External CreamIndications:Can didal skin infection APPLY TOPICALLY TO AFFECTED AREA TWO TIMES A DAY 30 g 2 11/15/2022 11/15/2023 Active Sertraline HCl 25 MG Oral Tablet (Zoloft) TAKE ONE TABLET BY MOUTH IN THE MORNING. 90 Tablet 3 10/15/2022 10/15/2023 Active LORazepam 0.5 MG Oral Tablet (Ativan)Indications: THADDEUS (generalized anxiety disorder) Take 1 Tablet by mouth every 8 hours as needed for Anxiety. 90 Tablet 0 07/09/2023 Active documented as of this encounter (statuses as of 07/19/2023) Active Problems Problem Noted Date Diagnosed Date Sjogren's syndrome without extraglandular involv ement 02/12/2020 THADDEUS (generalized anxiety disorder) 12/14/2019 Left asymmetrical SNHL 04/18/2018 HTN, goal below 130/80 08/03/2009 Overview: Modified per HTN protocol #16. Generalized osteoarthritis 06/18/2003 Senile osteoporosis documented as of this encounter (statuses as of 07/19/2023) Resolved Problems Problem Noted Date Diagnosed Date [...] as of this encounter (statuses as of 07/19/2023) Immunizations Name Administration Dates Next Due COVID-19 mRNA, LNP-s, No Pre serve, 2-Dose Series ([employer]) 09/19/2021,01/03/2021,12/13/2020 Pneumococcal Conjugate Vacc, 13 Valent (Prevnar) 06/01/2015 Pneumococcal Polysaccharide PPV23 (Pneumovax) 06/21/2008,03/31/1999 SEASONAL INFLUENZA, PF, 6 M & Above, [...] as of this encounter Miscellaneous Notes * Addendum Note - Arlen Helton DO - 07/19/2023 1:10 PM EDTAddended by: ARLEN HELTON on: 07/19/2023 01:10 PM Modules accepted: Orders * Telephone Encounter - Arlen Helton DO - 07/19/2023 1:10 PM EDT Order placed. * Telephone Encounter - Jaqui Reeves OSA - 07/19/2023 12:26 PM EDT Pt is requesting an order for her annual mammogram from Dr. Helton. Can the order be placed in Epic for a "mammogram screening bilateral"? She is scheduled for 09/04/23. Thank you, Scheduling Services documented in this encounter Plan of Treatment Upcoming Encounters Date Type Department Care Team (Late st Contact Info) Description 08/01/2023 1:00 PM EST Office Visit Family Practice [address], [place] [address] [place] [address] Arlen Helton DO [address] [place] [address] 09/04/2023 2:00 PM EST Imaging Radiology [address] [place] [address] 06/17/2024 3:20 PM EDT Office Visit Rheumatology [address] [place] [address] Del Johnson MD [address] [place] [address] [place] [address] Scheduled Orders Name Type Priority Associated Diagnoses Orde r Schedule MAMMOGRAM SCREENING CORAL BILATERAL Medical Imaging Routine Encounter for screening mammogram for breast cancer Expected: 07/19/2023, Expires: 08/18/2024 Health Maintenance Due Date Last Done Comments [...] D LEVEL ONCE IN A LIFETIME-USE SMARTSET# [id number] Completed 06/22/2021, 11/03/2010, 11/10/2009 Influenza Vaccine (FLU [...] as of this encounter Visit Diagnoses Diagnosis Encounter for screening mammogram for breast cancer- Primary documented in this encounter Care Teams Esl Professor Relationship Specialty Start Date End Date Arlen Helton DO [address] [place] [address] PCP - General Family Medicine 11/15/22 documented as of this encounter
--- OUTSIDE RECORDS SUMMARY | 2023-12-17 06:28 | External Medical Summary | Summary of Care ---
Author Name Unknown Organization [facility] Address [address] [place] [address] Phone [phone] Care Team Providers Care Coat Feller Name Role Phone Arlen Reveles DO Primary Care Provider + [phone] Reason for Visit * Reason Onset Date Comments Test Results 07/09/2023 Encounter Details Date Type Department Care Team (Late st Contact Info) Description 07/09/2023 Telephone Family Practice 65 [facility], [place] [address] [place] [address] Arlen Reveles DO [address] [place] [address] Test Results (/) Allergies Active Allergy Reactions Criticality Noted Date Comments Amoxicillin 09/01/2005 Rash Loratadine-Pseudoephedrin e Er 05/17/2020 rash Hydrocodone Nausea/vomiting High 02/08/2021 Prednisone 05/10/2008 Elevated BP Sulfa Antibiotics 05/02/2013 Urticaria and pruritis. documented as of this encounter (statuses as of 07/09/2023) Medications Medication Sig Dispensed Refills Start Date [...] 100 Tablet 3 12/31/2022 12/31/2023 Active Nystatin 365693 UNIT/GM External CreamIndications:Can didal skin infection APPLY TOPICALLY TO AFFECTED AREA TWO TIMES A DAY 30 g 2 11/15/2022 11/15/2023 Active Sertraline HCl 25 MG Oral Tablet (Zoloft) TAKE ONE TABLET BY MOUTH IN THE MORNING. 90 Tablet 3 10/15/2022 10/15/2023 Active Meclizine HCl 12.5 MG Oral Tablet (Antivert) TAKE ONE TABLET BY MOUTH NEEDED IN THE MORNING, AT NOON, AND IN THE EVENING NEEDED FOR DIZZINESS 30 Tablet 1 07/09/2022 07/09/2023 Active LORazepam 0.5 MG Oral Tablet (Ativan)Indications: THADDEUS (generalized anxiety disorder) Take 1 Tablet by mouth every 8 hours as needed for Anxiety. 90 Tablet 0 05/29/2023 Active documented as of this encounter (statuses as of 07/09/2023) Active Problems Problem Noted Date Diagnosed Date Sjogren's syndrome without extraglandular involv ement 02/12/2020 THADDEUS (generalized anxiety disorder) 12/14/2019 Left asymmetrical SNHL 04/18/2018 HTN, goal below 130/80 08/03/2009 Overview: Modified per HTN protocol #16. Generalized osteoarthritis 06/18/2003 Senile osteoporosis documented as of this encounter (statuses as of 07/09/2023) Resolved Problems Problem Noted Date Diagnosed Date [...] as of this encounter (statuses as of 07/09/2023) Immunizations Name Administration Dates Next Due COVID-19 [...] Telephone Encounter - Violeta Mace LPN - 07/09/2023 4:35 PM EDT Patient is aware and will comply. 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 Severe left shoulder OA is present. See if PT is helping with pain. documented in this encounter Plan of Treatment Upcoming Encounters Date Type Department Care Team (Late st Contact Info) Description 08/01/2023 1:00 PM EST Office Visit Family Practice [address] [place] [address], [place] 293 [place] [address] Arlen Reveles DO 293 [facility] [place] [address] 06/17/2024 3:20 PM EDT Office Visit Rheumatology [place] [address] [employer] [facility] [address] Del Johnson MD [address] [place], [place] [address] Health Maintenance Due Date Last Done Comments [...] D LEVEL ONCE IN A LIFETIME-USE SMARTSET# [id number] Completed 06/22/2021, 11/03/2010, 11/10/2009 Influenza Vaccine (FLU [...] filedocumented as of this encounter Care Teams Coat Feller Relationship Specialty Start Date End Date Arlen Reveles DO [address] [place] [address] PCP - General Family Medicine 11/15/22 documented as of this encounter
--- OUTSIDE RECORDS SUMMARY | 2023-12-17 06:28 | External Medical Summary | Summary of Care ---
Author Name Unknown Organization [facility] Address [address] [place] [address] Phone [phone] Care Team Providers Care Building Certifier Name Role Phone Arlen Reveles DO Primary Care Provider + [phone] Reason for Visit * Reason Onset Date Comments Order Request 07/19/2023 Encounter Details Date Type Department Care Team (Late st Contact Info) Description 07/19/2023 Telephone Family Practice 65 [facility] [place] [address] [place] [address] Arlen Reveles DO [address] [place] [address] Order Request Allergies Active Allergy [...] 100 Tablet 3 12/31/2022 12/31/2023 Active Nystatin 510925 UNIT/GM External CreamIndications:Can didal skin infection APPLY [...] mRNA, LNP-s, No Pre serve, 2-Dose Series ([email or web address]) 09/19/2021,01/03/2021,12/13/2020 Pneumococcal Conjugate Vacc, 13 Valent (Prevnar) [...] encounter Miscellaneous Notes * Telephone Encounter - Jaqui Reeves OSA - 07/19/2023 12:26 PM EDT Pt is requesting an order for her annual mammogram from Dr. Reveles. Can the order be placed in [facility] for a "mammogram screening bilateral"? She is scheduled for 09/04/23. Thank you, Scheduling Services documented in this encounter Plan of Treatment Upcoming Encounters Date Type Department Care Team (Late st Contact Info) Description 08/01/2023 1:00 PM EST Office Visit Family Practice [address] [place] [address] [facility] [address] [facility] [address] 09/04/2023 2:00 PM EST Imaging Radiology [address] [place] [address] 06/17/2024 3:20 PM EDT Office Visit Rheumatology [facility] [address] [place] [address] Del Johnson MD [address] [place] [address] Health Maintenance Due Date Last Done Comments [...] D LEVEL ONCE IN A LIFETIME-USE SMARTSET# [id number] Completed 06/22/2021, 11/03/2010, 11/10/2009 Influenza Vaccine (FLU [...] filedocumented as of this encounter Care Teams Building Certifier Relationship Specialty Start Date End Date Arlen Reveles DO [address] [place] [place] [address] PCP - General Family Medicine 11/15/22 documented as of this encounter
--- OUTSIDE RECORDS SUMMARY | 2023-12-17 06:28 | External Medical Summary | Summary of Care ---
Author Name Unknown Organization [facility] Address [address] [place] [address] Phone [phone] Care Team Providers Care Machine Maintenance Repairer Name Role Phone Arlen Helton DO Primary Care Provider + [phone] Encounter Details Date Type Department Care Team (Late st Contact Info) Description 07/09/2023 Refill Family Practice [address], [place] [address] [place] [address] Arlen Helton DO [address] [place], [place] [id number] THADDEUS (generalized anxiety disorder) Allergies Active Allergy [...] 100 Tablet 3 12/31/2022 4 Active Nystatin 274636 UNIT/GM External CreamIndications:Ca ndidal skin infection APPLY TOPICALLY TO AFFECTED AREA TWO TIMES A DAY 30 g 2 11/15/2022 4 Active Sertraline HCl 25 MG Oral Tablet (Zoloft) TAKE ONE TABLET BY MOUTH IN THE MORNING. 90 Tablet 3 10/15/2022 4 Active Meclizine HCl 12.5 MG Oral Tablet (Antivert) TAKE ONE TABLET BY MOUTH NEEDED IN THE MORNING, AT NOON, AND IN THE EVENING NEEDED FOR DIZZINESS 30 Tablet 1 07/09/2022 3 Active LORazepam 0.5 MG Oral Tablet (Ativan)Indications :THADDEUS (generalized anxiety disorder) Take 1 Tablet by mouth every 8 hours as needed for Anxiety. 90 Tablet 0 07/09/2023 Active LORazepam 0.5 MG Oral Tablet (Ativan)Indications :THADDEUS (generalized anxiety disorder) Take 1 Tablet by mouth every 8 hours as needed for Anxiety. 90 Tablet 0 05/29/2023 3 Discontinue d(Refill) documented as of this [...] mRNA, LNP-s, No Pre serve, 2-Dose Series ([employer]) 09/19/2021,01/03/2021,12/13/2020 Pneumococcal Conjugate Vacc, 13 Valent (Prevnar) [...] Telephone Encounter - Arlen Helton DO - 07/09/2023 4:55 PM EDTSigned Prescriptions: Disp Refills LORazepam 0.5 MG Oral Tablet (Ativan) 90 Tab*0 Sig: Take 1 Tablet by mouth every 8 hours as needed for Anxiety.Authorizing Provider: ARLEN HELTON * Telephone Encounter - Arlen Helton DO - 07/09/2023 4:55 PM EDT Rx sent. * Telephone Encounter - Violeta Blank MICK Mace - 07/09/2023 4:37 PM EDT Did you pend patient's preferred pharmacy and medication before forwarding?yes Pharmacy: [email or web address] Pending Prescriptions: Disp Refills LORazepam 0.5 MG Oral Tablet (Ativan) 90 Tab*0 Sig: Take 1 Tablet by mouth every 8 hours as needed for Anxiety. Last Visit: 07/04/2023 (in office), Visit date not found (telemedicine) Next Visit: 08/01/2023 If no future appointments scheduled, and last appointment is greater than a year ago, please schedule patient for a follow-up appointment Last date the medication was ordered: 05/29/2023 Is this request for a controlled substance?No Urine Drug Screen:No results found for this or any previous visit. Patient Phone Numbers Labs: Lab Results Component Value Date/Time CREAT 0.7 08/04/2022 11:57 AM CREAT 0.55 (A) 11/21/2021 12:00 AM CREAT 0.7 03/08/2020 08:36 AM POTASSIUM 4.0 08/04/2022 11:57 AM POTASSIUM 3.5 11/21/2021 12:00 AM POTASSIUM 3.9 03/08/2020 08:36 AM POTASSIUM 4.1 12/04/1996 09:25 AM TSH 2.690 04/16/2018 12:00 AM TSH 2.59 11/03/2010 10:15 AM LDLCALC 140 (H) 11/28/2015 09:06 AM LDLDIRECT 144 (H) 11/03/2010 10:15 AM ALT 11 11/24/2014 10:02 AM HGBA1C 5.4 03/08/2020 08:36 AM documented in this encounter Plan of Treatment Upcoming Encounters Date Type Department Care Team (Late st Contact Info) Description 08/01/2023 1:00 PM EST Office Visit Family Practice [address], [place] 293 [place] [address] Arlen Helton DO 293 [place] [address] 06/17/2024 3:20 PM EDT Office Visit Rheumatology [facility] [address] [place] [address] Del Johnson MD [address] [place] [address] Health Maintenance Due Date Last Done Comments [...] D LEVEL ONCE IN A LIFETIME-USE SMARTSET# [id number] Completed 06/22/2021, 11/03/2010, 11/10/2009 Influenza Vaccine (FLU [...] disorder documented in this encounter Care Teams Machine Maintenance Repairer Relationship Specialty Start Date End Date Arlen Helton DO [address] [place] [address] PCP - General Family Medicine 11/15/22 documented as of this encounter
--- OUTSIDE RECORDS SUMMARY | 2023-12-17 06:29 | External Medical Summary | Summary of Care ---
Author Name Unknown Organization [facility] Address [address] [place] [address] Phone [phone] Care Team Providers Care Cone Machine Feeder Name Role Phone Arlen Reveles DO Primary Care Provider + [phone] Reason for Referral * Evaluate & Treat - Unlimited Visits (Within 10 days (routine)) - Authorized Specialty Diagnoses / Procedures Referred By Sánchez bryson Referred To Contact Physical Therapy / Physical Medicine And Rehab Diagnoses Acute pain of left shoulder Neck pain Felton Solano DO [address] [place] [address] Referral ID Status Reason Start Date Expiration Date Visits Requested Visits Authorized [id number] Authorized Specialty Services Required 3 [phone] Question Answer Referral Priority Within 10 days (routine) Where should this appointment be scheduled? External Reason for Visit * Reason Comments Acute Encounter Details Date Type Department Care Team Description 07/04/2023 Office Visit Family Practice 65 [facility] [place] [address] [place] [address] Felton Solano DO [address] [place] [address] Acute pain of left shoulder*; Neck pain; HTN, goal below 130/80; THADDEUS (generalized anxiety disorder); Senile osteoporosis Allergies Active Allergy Reactions Severity Noted Date Comments Amoxicillin 09/01/2005 Rash Loratadine-Pseudoephedrine Er 05/17/2020 rash Hydrocodone Nausea/vomiting High 02/08/2021 Prednisone 05/10/2008 Elevated BP Sulfa Antibiotics 05/02/2013 Urticaria and pruritis. documented as of this encounter (statuses as of 07/04/2023) Medications Medication Sig Dispensed Refills Start Date [...] 100 Tablet 3 12/31/2022 12/31/2023 Active Nystatin 719965 UNIT/GM External CreamIndications:Can didal skin infection APPLY [...] as of this encounter (statuses as of 07/04/2023) Active Problems Problem Noted Date Sjogren's syndrome without extraglandula r involvement 02/12/2020 THADDEUS (generalized anxiety disorder) 12/13 Left asymmetrical SNHL 04/18/2018 HTN, goal below 130/80 08/03/2009 Overview: Modified per HTN protocol #16. Generalized osteoarthritis 06/18/2003 Senile osteoporosis documented as of this encounter (statuses as of 07/04/2023) Resolved Problems Problem Noted Date Resolved Date Other chronic sinusitis 04/18/2018 11/11/19 21 Carpal tunnel syndrome of left wrist 03/05/2018 11/11/2020 Allergic rhinitis 12/30/2017 11/13/2021 Primary osteoarthritis of both hands 09/04/2016 11/11/2020 Hemorrhoids, external without complications 12/201306/19/2017 Piles (hemorrhoids) 06/19/2014 06/19/2017 Dyslipidemia, goal LDL below 160 11/19/2013 12/30/2017 Dyslipidemia, goal to be determined 08/25/2009 11/19/2013 Overview: Per Lipid Taxonomy. Osteoporosis 04/29/2009 11/07/2011 Urticaria 05/10/2008 06/02/2018 ADVANCE DIRECTIVE INFORMATION 09/01/2005 Overview: Yes, Patient instructed to provide copy of advance directive for provider to review and to be scanned into Electronic Medical Record BENIGN NEOPLASM LG BOWEL 11/11/2000 018 HYPERTENSION NOS 08/04/2009 Overview: Modified per HTN protocol #16. PURE HYPERCHOLESTEROLEM 08/25/20 Overview: Per Lipid Taxonomy. Menopause 06/19/2017 documented as of this encounter (statuses as of 07/04/2023) Immunizations Name Administration Dates Next Due COVID-19 mRNA, LNP-s, No Pre serve, 2-Dose Series ([employer]) 09/19/2021,01/03/2021,12/13/2020 Pneumococcal Conjugate Vacc, 13 Valent (Prevnar) [...] 0.6 oz pur e alcohol) Very rare Food Insecurity Answer Date Recorded Within the past 12 months, y ou worried that your food would run out before you got money to buy more. Never true 07/04/2023 Within the past 12 months, t he food you bought just didn't last and you didn't have money to get more. Never true 07/04/2023 Sex Assigned at Date Recorded Female 12/22/2018 9:48 AM E DT Job Start Date Occupation Industry Not on file Not on file Not on file documented as of this encounter Last Filed Vital Signs Vital Sign Reading Time Taken Comments Blood Pressure 132/70 07/04/2023 10:59 AM EDT Pulse 90 07/04/2023 10:59 AM EDT Temperature 36.9 C (98.4 F) 07/04/2023 10:59 AM E DT Respiratory Rate 16 07/04/2023 10:59 AM EDT Oxygen Saturation 98% 07/04/2023 10:59 AM EDT Inhaled Oxygen Concentration - - Weight 50.9 kg (112 lb 3.2 oz) 07/04/2023 10:59 AM EDT Height 148.6 cm (4' 10.5") 07/04/2023 10:59 AM E DT Body Mass Index 23.05 07/04/2023 10:59 AM EDT documented in this encounter Progress Notes * Felton Solano, DO - 07/04/2023 11:38 AM EDT SUBJECTIVE: Lisa Rios is a 87 year old female. Chief Complaint Patient presents with Acute HPI: Patient is an 87 year old female with a history of HTN, Anxiety, Osteoporosis, and Sjogren's Syndrome that is seen for pain. The patient has left shoulder and left neck pain for two days. She was cleaning a spot on the floor and pulled on the door frame to pull herself up and that is when the pain started. Patient Active Problem List Diagnosis Code Generalized osteoarthritis M15.9 HTN, goal below 130/80 I10 Left asymmetrical SNHL [id number] THADDEUS (generalized anxiety disorder) F41.1 Sjogren's syndrome [...] MOUTH IN THE MORNING. 90 Tablet 3 Meclizine HCl 12.5 MG Oral Tablet (Antivert) TAKE ONE TABLET BY MOUTH NEEDED IN THE MORNING, AT NOON, AND IN THE EVENING NEEDED FOR DIZZINESS 30 Tablet 1 LORazepam 0.5 MG Oral Tablet (Ativan) Take 1 Tablet by mouth every 8 hours as needed for Anxiety. 90 Tablet 0 SALINE 0.4 % NA SOLN Twice daily for sinus Hydrocortisone (Perianal) 2.5 % External Cream ADMINISTER INTO THE RECTUM 2 TIMES A DAY 28 g 0 Nystatin 858261 UNIT/GM External Cream APPLY TOPICALLY TO AFFECTED AREA TWO TIMES A DAY 30 g 2 No current facility-administered medications for this visit. The patient's medication list was reviewed and updated as needed. Past Medical History: Diagnosis Date Anxiety Dyslipidemia, goal LDL below 160 11/19/2013 GENERAL OSTEOARTHROSIS 06/18/2003 Hemorrhoids, external without complications 06/19/2014 HTN, goal below 140/90 08/03/2009 Modified per HTN protocol #16. Piles (hemorrhoids) 06/19/2014 Primary osteoarthritis of both hands 09/04/2016 Senile osteoporosis Urticaria 05/10/2008 Past Surgical History: Procedure Laterality Date COLONOSCOPY 08/2000 polyp removed COLONOSCOPY 2004 clear COLONOSCOPY, DIAGNOSTIC (RECTUM) 12/03/2017 diverticulosis/[facility] TOTAL ABD HYSTERECTOMY W/WO REMOVAL OF TUBE(S) 1982 Review of patient's allergies indicates: Allergen Reactions Hydrocodone Nausea/vomiting Amoxicillin Rash Claritin-D 12 Hour [Loratadine-Pseudoephedrine Er] rash Prednisone Elevated BP Sulfa Antibiotics Urticaria and pruritis. Review of Systems Respiratory: Negative for cough, shortness of breath and wheezing. Cardiovascular: Negative for chest pain, palpitations and leg swelling. Musculoskeletal: Left shoulder and left neck pain OBJECTIVE: BP 132/70 | Pulse 90 | Temp 36.9 C (98.4 F) (Tympanic) | Resp 16 | Ht 1.486 m (4' 10.5") | Wt 50.9 kg (112 lb 3.2 oz) | SpO2 98% | BMI 23.05 kg/m | BSA 1.45 m Physical Exam Constitutional: General: She is not in acute distress. Appearance: She is not toxic-appearing. HENT: Head: Normocephalic and atraumatic. Cardiovascular: Rate and Rhythm: Normal rate and regular rhythm. Heart sounds: Normal heart sounds. No murmur heard. No gallop. Pulmonary: Effort: Pulmonary effort is normal. Breath sounds: Normal breath sounds. No wheezing, rhonchi or rales. Musculoskeletal: Left shoulder: No swelling or deformity. Normal range of motion. Cervical back: No edema, erythema, rigidity, torticollis or bony tenderness. No pain with movement. Neurological: Mental Status: She is alert. X-rays Cervical Spine, and Left shoulder: no fractures present PLAN AND ASSESSMENT: Acute pain of left shoulder (Primary) - XR SHOULDER, 2 OR MORE VIEWS - PHYSICAL THERAPY REFERRAL OP Continue ICT Hot Neck pain - XR C SPINE 4-5 VIEWS - PHYSICAL THERAPY REFERRAL OP Continue Icy Hot HTN, goal below 130/80 Continue Felodipine THADDEUS (generalized anxiety disorder) Continue Sertraline and Lorazepam Senile osteoporosis Felton Solano DO 11:38 AM 07/04/2023 documented in this encounter Nursing Notes * Violeta Mace LPN - 07/04/2023 10:56 AM EDT While cleaning up floor, leaned over and hung onto door frame to help herself get up. Now with left shoulder and left sided neck pain Does state she has anxiety documented in this encounter Plan of Treatment Upcoming Encounters Date Type Specialty Care Team Description 08/01/2023 Office Visit Family Medicine Arlen Reveles DO [address] [place] [address] 06/17/2024 Office Visit Rheumatology Del Johnson MD [address] [place] [address] Pending Results Name Type Priority Associated Diagnoses Date /Time XR C SPINE 4-5 VIEWS Medical Imaging Routine Neck pain 07/04/2023 11:46 AM EDT XR SHOULDER, 2 OR MORE VIEWS Medical Imaging Routine Acute pain of left shoulder 07/04/2023 11:46 AM EDT Scheduled Referrals Name Type Priority Associated Diagnoses Orde r Schedule PHYSICAL THERAPY REFERRAL OP Referral Within 10 days (routine) Acute pain of left shoulder Neck pain Ordered: 07/04/2023 Health Maintenance Due Date Last Done Comments [...] D LEVEL ONCE IN A LIFETIME-USE SMARTSET# [id number] Completed 06/22/2021, 11/03/2010, 11/10/2009 Influenza Vaccine (FLU [...] as of this encounter Visit Diagnoses Diagnosis Acute pain of left shoulder- Primary Neck pain Cervicalgia HTN, goal below 130/80 Unspecified essential hypertension THADDEUS (generalized anxiety disorder) Generalized anxiety disorder Senile osteoporosis documented in this encounter Care Teams Cone Machine Feeder Relationship Specialty Start Date End Date Arlen Reveles, DO [address] [facility] [place] [address] PCP - General Family Medicine 11/15/22 documented as of this encounter
--- OUTSIDE RECORDS SUMMARY | 2023-12-17 06:29 | External Medical Summary | Summary of Care ---
Author Name Unknown Organization [facility] Address [address] [place] [address] Phone [phone] Care Team Providers Care Rail Equipment Operator Name Role Phone Arlen Reveles DO Primary Care Provider + [phone] Reason for Visit * Reason Onset Date Comments Appointment 07/04/2023 Pulled muscle? Encounter Details Date Type Department Care Team Description 07/04/2023 Telephone Family Practice [address] [place] [address] [place] [address] Arlen Reveles DO [address] [place] [address] Appointment (Pulled muscle?) Allergies Active Allergy Reactions Severity Noted Date [...] 100 Tablet 3 12/31/2022 12/31/2023 Active Nystatin 327265 UNIT/GM External CreamIndications:Can didal skin infection APPLY [...] Influenza Virus Vac cine, Unspecified Formulation 06/21/2020,07/06/2019,06/02/2018,05/27,06/13/2016,05/26/2014,06/12/2013 ,06/13/2012,06/07/2011,06/07/2010,/,06/21/2008,07/09/2007, 6,06/28/2005,08/03/2004,06/18/2003,,07/31/2000,07/03/1999 Seasonal Influenza, Quadriva lent Hd (Fluzone [...] got money to buy more. Never true 05/21/2023 Within the past 12 months, t he food you bought just didn't last and you didn't have money to get more. Never true 05/21/2023 Sex Assigned at Date Recorded Female 12/22/2018 9:48 AM E DT Job Start Date Occupation Industry Not on file Not on file Not on file documented as of this encounter Miscellaneous Notes * Telephone Encounter - Violeta Mace LPN - 07/04/2023 9:22 AM EDT Scheduled. Thank you * Telephone Encounter - NICKY Bolaños - 07/04/2023 8:12 AM EDT Pulled left shoulder and now is in a lot of pain The pain goes up her neck Happened Saturday PM Wants seen documented in this encounter Plan of Treatment Upcoming Encounters Date Type Specialty Care Team Description 07/04/2023 Office Visit Family Medicine Felton Solano, DO [address] [place] [address] 08/01/2023 Office Visit Family Medicine Arlen Reveles, DO [address] [facility], [place] [address] 06/17/2024 Office Visit Rheumatology Del Johnson MD [address] [place] [address] Health Maintenance Due Date Last Done Comments COVID-19 Vaccine ( season) 2023 09/19/2021, 01/03/2021, 12/13/2020 Depression Screening 05/21/2024 05/21/2023 DXA Scan 10/22/2024 10/22/2022, 02/15, 01/04/2015, Additional history exists Albumin/Creatinine Ratio 08/04/2025 08/04/2022 DTaP,Tdap,and Td Vaccines (3 - Td or Tdap) 11/15/2032 11/15/2022, 05/07/2012, 12/29/2004, Additional history exists Pneumococcal Vaccine: 65+ Years Completed 06/01/2015, 06/21/2008, 03/31/1999 Zoster Vaccines Completed 04/20/2019, 12/15, 06/13/2012 VITAMIN D LEVEL ONCE IN A LIFETIME-USE SMARTSET# [id number] Completed 06/22/2021, 11/03/2010, 11/10/2009 Influenza Vaccine (FLU [...] filedocumented as of this encounter Care Teams Rail Equipment Operator Relationship Specialty Start Date End Date Arlen Reveles, [address] [place] [address] PCP - General Family Medicine 11/15/22 documented as of this encounter
--- OUTSIDE RECORDS SUMMARY | 2023-12-17 06:29 | External Medical Summary | Summary of Care ---
Author Name Unknown Organization [facility] Address [address] [place] [address] Phone [phone] Care Team Providers Care Party Plan Selling Distributor Name Role Phone Arlen Reveles DO Primary Care Provider + [phone] Reason for Referral * Evaluate & Treat - Unlimited Visits (Within 10 days (routine)) - Authorized Specialty Diagnoses / Procedures Referred By Sánchez bryson Referred To Contact Physical Therapy / Physical Medicine And Rehab Diagnoses Acute pain of left shoulder Neck pain Felton Solano DO [address] [place] [address] Referral ID Status Reason Start Date Expiration Date Visits Requested Visits Authorized [id number] Authorized Specialty Services Required 3 999 999 Question Answer Referral Priority Within 10 days (routine) Where should this appointment be scheduled? External Reason for Visit * Reason Comments Acute Encounter Details Date Type Department Care Team Description 07/04/2023 Office Visit Family Practice [address], [place] [address] [place] [address] Felton Solano DO [address] [place] [address] Acute pain of left shoulder*; Neck pain; [...] 100 Tablet 3 12/31/2022 12/31/2023 Active Nystatin 120638 UNIT/GM External CreamIndications:Can didal skin infection APPLY [...] mRNA, LNP-s, No Pre serve, 2-Dose Series ([employer]) 09/19/2021,01/03/2021,12/13/2020 Pneumococcal Conjugate Vacc, 13 Valent (Prevnar) [...] goal below 130/80 I10 Left asymmetrical SNHL 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 THADDEUS (generalized anxiety disorder) F41.1 Sjogren's syndrome [...] TIMES A DAY 28 g 0 Nystatin 138207 UNIT/GM External Cream APPLY TOPICALLY TO AFFECTED [...] COLONOSCOPY 2004 clear COLONOSCOPY, DIAGNOSTIC (RECTUM) 12/03/2017 diverticulosis/[facility] TOTAL ABD HYSTERECTOMY W/WO REMOVAL OF TUBE(S) [...] Visit Family Medicine Arlen Reveles DO [address] [place] [address] 06/17/2024 Office Visit Rheumatology Del Johnson MD [address] [place] [address] Pending Results Name Type Priority Associated Diagnoses [...] D LEVEL ONCE IN A LIFETIME-USE SMARTSET# [id number] Completed 06/22/2021, 11/03/2010, 11/10/2009 Influenza Vaccine (FLU [...] osteoporosis documented in this encounter Care Teams Party Plan Selling Distributor Relationship Specialty Start Date End Date Arlen Reveles, DO [address] [place] [address] PCP - General Family Medicine 11/15/22 documented as of this encounter
--- OUTSIDE RECORDS SUMMARY | 2023-12-17 06:29 | External Medical Summary | Summary of Care ---
Author Name Unknown Organization [facility] Address [address] [place] [address] Phone [phone] Care Team Providers Care Metal Products Fabricator Assembler Name Role Phone Arlen Reveles DO Primary Care Provider + [phone] Reason for Visit * Reason Onset Date Comments Test Results 07/09/2023 Encounter Details Date Type Department Care Team (Late st Contact Info) Description 07/09/2023 Telephone Family Practice [address] [facility], [place] [address] [place] [address] Arlen Reveles DO [address] [place] [address] Test Results (/) Allergies Active [...] 100 Tablet 3 12/31/2022 12/31/2023 Active Nystatin 493207 UNIT/GM External CreamIndications:Can didal skin infection APPLY [...] 1:00 PM EST Office Visit Family Practice [address] [place] [address], [place] [address] [place] [address] Arlen Reveels DO [address] [place] [address] 06/17/2024 3:20 PM EDT Office [facility] [place] [address] [facility] [address] Del Johnson MD [address] [place], [place] [address] Health Maintenance Due Date Last Done Comments [...] D LEVEL ONCE IN A LIFETIME-USE SMARTSET# [id number] Completed 06/22/2021, 11/03/2010, 11/10/2009 Influenza Vaccine (FLU [...] filedocumented as of this encounter Care Teams Metal Products Fabricator Assembler Relationship Specialty Start Date End Date Arlen Reveles DO [address] [place] [address] PCP - General Family Medicine 11/15/22 documented as of this encounter
--- NOTE | 2023-12-17 07:06 | XRay Report ---
XR chest 1V not portable CLINICAL HISTORY: Chest pain, nonspecific TECHNIQUE: Single frontal radiograph of the chest was obtained. Comparison: Comparison is made to chest radiograph 11/08/2021 FINDINGS: No lines and tubes are seen. Mitral annular calcification is seen. There is calcified aortic knob. Th e lungs are clear. No evidence of pleural effusion or pneumothorax. IMPRESSION: No acute chest disease. ACT 112: Negative or not required by law. Electronically signed by: Juan Ivory M.D. 12/17/2023 7:05 AM
[2023-12-17 07:56] LABS: Basophils # (auto) 0.02 K/uL (0.00-0.20); Basophils % (auto) 0.3 %; Eosinophils # (auto) 0.15 K/uL (0.00-0.50); Eosinophils % (auto) 2.1 %; Hematocrit (blood only) 38.4 % (37.0-47.0); Hemoglobin 12.9 g/dl (12.0-16.0); Immature Granulocytes # (auto) 0.02 K/uL (0.01-0.20); Immature Granulocytes % (auto) 0.3 %; Lymphocytes # (auto) 1.71 K/uL (1.20-3.40); Lymphocytes % (auto) 23.6 %; Mean Corpuscular Hemoglobin 29.4 pg (25.0-34.0); Mean Corpuscular Hgb Conc 33.6 g/dL (32.0-36.0); Mean Corpuscular Volume 87.5 fL (80.0-100.0); Mean Platelet Volume 8.8 fL (9.4-12.4); Monocytes % (auto) 9.6 %; Neutrophils # (auto) 4.66 K/uL (1.40-6.50); Neutrophils % (auto) 64.1 %; Platelet Count 203 K/uL (130-400); RDW Coefficient of Variation 13.5 % (11.5-14.5); Red Blood Count 4.39 M/uL (4.20-5.40); White Blood Count 7.26 K/ul (4.8-10.8)
[2023-12-17] MEDS: guaiFENesin 600 MG TABCR PO SCH (08:15)
[2023-12-17] MEDS: SERTRALINE HCL 50 MG TABLET PO SCH (08:15)
[2023-12-17] MEDS: ASPIRIN 81 MG ECTAB PO SCH (08:15)
[2023-12-17 08:16] LABS: BUN Creatinine Ratio 30.2 (10-20); Calcium 9.3 mg/dl (8.6-10.3); Creatinine Clr Calc Pharmacy 42.4 ml/min; Est GFR (African American) 92.2 ml/min; Est GFR (Non-African American) 79.5 ml/min; Potassium 3.7 mmol/L (3.5-5.1)
[2023-12-17] MEDS: FELODIPINE 5 MG TABCR PO SCH (08:16)
[2023-12-17] MEDS: ASCORBIC ACID 500 MG TAB PO SCH (08:16)
[2023-12-17] MEDS: CYANOCOBALAMIN (B-12) 500 MCG TABLET PO SCH (08:16)
[2023-12-17] MEDS ORDERED: VITAMINS A C E ZINC COPPER PO SCH (09:00)
[2023-12-17] MEDS ORDERED: [UNRECOGNIZED DRUG - OTHER] PO SCH (09:00)
--- NOTE | 2023-12-17 09:32 | Cardiology Consultation ---
Date of Consultation December 17, 2023 Assessment & Plan (1) HTN (hypertension): (2) Chest pain: (3) Anxiety: (4) Hypokalemia: Plan Patient is an 88-year-old admitted with chest pain/epigastric pain and hypertensive urgency. Blood pressure improved in the ER with IV labetalol and then she received oral home dose felodipine this morning. Significant situational component as today is the anniversary of her 's . She also has significant underlying anxiety and sees a psychiatrist. EKG was without acute ischemic changes. High-sensitivity troponin negative x 2. Echocardiogram with hyperdynamic function and no wall motion abnormalities. Patient took Am meds about 30 min prior to consultation. Recommend rechecking BP in an hour. If elevated, consider adding IMELDA/ARB or increasing felodipine dose to 10 mg. At this time, would not recommend any other further cardiac testing. She can follow up with PCP for further BP management and anxiety management. Case discussed with Dr. Joiner I spent a total of 55 minutes on the date of service in preparation, delivery, and documentation of the care provided to this patient, excluding any time spent in the performance of separately billed services. Yana Downey PA-C Department of Cardiology, [facility] This chart was completed in part utilizing Speech Voice Recognition Software. Grammatical errors, random word insertions, pronoun errors, and incomplete sentences are an occasional consequence of this system due to software limitations, ambient noise, and hardware issues. Any formal questions or concerns about the content, text, or information contained within the body of this dictation should be directly addressed to the provider for clarification. Supervising Physician Co-Signing Physician Notes Attending attestation: Case reviewed with the advanced practitioner. I have personally performed a history and physical examination on the patient. I have reviewed the advanced practitioner's documentation on the date of service referenced in note, and I agree with, and take responsibility for the plan of care. Patient describes that Saturday was the 2-year anniversary since the of her , Mike. She notes that the discomfort she felt in her left upper flank, below her left breast has resolved. Most recent blood pressure 159/83. EKG x 2 without ischemic changes. Age-indeterminate anterolateral age- indeterminate inferior infarct patterns are felt to be false positive in the setting of normal wall motion on echocardiogram. No further cardiac workup felt to be indicated at this time. Continue aspirin, felodipine sertraline. Consider follow-up with primary care for further anxiety and hypertension treatment. I am inclined to not change her blood pressure medications at this time. I spent a total of 20 minutes coordinating, documenting, and providing care for this patient excluding time spent in the performance of separately billed services or time spent by another provider. Kvng Joiner, History of Present Illness Reason for Consultation: CP; HTN Urgency Requesting Physician: Dr. Hale Attending Physician: Dr. Joiner History of Present Illness Patient is an 88-year-old female admitted to [facility] after an episode of chest pain and found to have significantly elevated blood pressure on arrival. History includes: 1. Hypertension 2. Sjogren's syndrome 3. anxiety 4. Chronic hyponatremia Patient reports she was in normal state of health last night when she developed sudden onset pain under her left breast. When she points to the area, more in th e epigastric region and left upper quadrant region. Symptoms were persistent for an about 30 minutes and she was brought to the ER for evaluation. On arrival BP was > 200/100. On arrival she was treated with IV labetalol and BP trended lower. EKG demonstrated NSR without acute ischemic changes. HS troponin negative x2 since admission. Potassium was slightly low and supplemented. Echo with preserved EF, moderate mitral calcification without stenosis, mild aortic calcification without stenosis, grade I diastolic dysfunction. At time of consult, patient resting in bed. Anxious for discharge. She reports significant anxiety and sees a therapist. Son pulls me aside and reports today is the 2 year anniversary of her husbands and she does not deal with these anniversaries very well. She denies chest pain or SOB. No palpitations. No headache or vision changes. She walks with a walker and denies recent exertional chest pain or dyspnea. Typically her BP is controlled at home on felodipine. Allergies Allergy/AdvReac Type Severity Reaction Status Date / Time amoxicillin Allergy Intermediate Rash Verified 12/17/23 01:43 loratadine Allergy Intermediate Rash Verified 12/17/23 01:43 [From Claritin-D 12 Hour] Penicillins Allergy Intermediate AMOXICILLIN Verified 12/17/23 01:43 -RASH pseudoephedrine Allergy Intermediate Rash Verified 12/17/23 01:43 [From Claritin-D 12 Hour] Sulfa (Sulfonamide Allergy Intermediate Urticaria Verified 12/17/23 01:43 Antibiotics) and puritis hydrocodone AdvReac Severe SEVERE Verified 12/17/23 01:43 NAUSEA & VOMITIMG prednisone AdvReac Intermediate ELEVATED Verified 12/17/23 01:43 B/P PER [facility] Home Medications Medication Instructions Recorded Confirmed Type sertraline 25 mg tablet 37.5 mg PO QAM 08/11/19 12/17/23 History felodipine 5 mg tablet,extended 5 mg PO QAM 02/08/21 12/17/23 History release 24 hr guaifenesin 600 mg tablet, 600 mg PO QAM Congestion 11/08/21 12/17/23 History extended release 12 hr (Mucinex) lorazepam 0.5 mg tablet 0.5 mg PO TID PRN Anxiety 11/08/21 12/17/23 History ascorbic acid (vitamin C) 250 mg 250 mg PO DAILY 12/17/23 12/17/23 History tablet (Vitamin C) calcium carbonate 600 mg calcium 600 mg PO QPM 12/17/23 12/17/23 History (1,500 mg) tablet cholecalciferol (vitamin D3) 25 25 mcg PO QPM 12/17/23 12/17/23 History mcg (1,000 unit) capsule (Vitamin D3) cyanocobalamin (vitamin B-12) 1,000 mcg PO DAILY 12/17/23 12/17/23 History 1,000 mcg tablet (Vitamin B-12) sodium chloride 3 % nasal mist 1 spray intranasal BID 12/17/23 12/17/23 History (Saline Nasal Mist) vitamins A,C,Z-alrm-aaylpx 4,296 1 cap PO BID 12/17/23 12/17/23 History mcg-226 mg-90 mg capsule (ICaps AREDS) Patient History Medical History (Updated 12/17/23 @ 04:41 by Kyrie Martinez DO) Anxiety Vertigo Dizziness Hypertension Sinusitis Surgical History S/P hysterectomy Social History Smoking Status: Never smoker Hx Alcohol Use: No Hx Substance Use: No Preferred Language: Yoruba Communication Ability: Effective Ceo & Co Founder Required: No Beliefs That Will Affect Care: None Current Living Situation: Alone Feels Safe at Home: Yes Assistive Devices: Walker Review of Systems Review of Systems: All systems reviewed & are unremarkable except as noted in HPI & below Physical Exam Constitutional: WD/WN, vitals as above well nourished; no acute distress Neck: trachea midline, no thyromegaly Respiratory: normal respiratory effort, lungs clear to auscultation Cardiovascular: Rate/Rhythm: regular rate and regular rhythm Heart Sounds: + murmur (I/ systolic murmur) Vessels: no JVD Extremities: no edema Gastrointestinal (Abdomen): normal bowel sounds, soft, nontender, no hepatosplenomegaly Skin: no rashes, warm and dry Psychiatric: A+Ox3, euthymic affect Results & Data Vital Signs (Past 12 Hours) Vital Signs Temp Pulse Pulse Resp BP BP Pulse Ox 12/17/23 07:53 82 12/17/23 06:40 84 23 94 12/17/23 06:30 77 20 96 12/17/23 06:20 74 23 94 12/17/23 06:10 74 21 93 12/17/23 06:06 72 18 145/75 H 92 12/17/23 06:05 69 22 95 12/17/23 06:05 145/75 H 12/17/23 06:00 74 21 91 12/17/23 05:50 70 21 95 12/17/23 05:40 74 22 92 12/17/23 05:30 70 20 97 12/17/23 05:20 72 21 93 12/17/23 05:10 75 21 94 12/17/23 05:05 73 23 94 12/17/23 05:05 137/70 12/17/23 05:00 74 22 94 12/17/23 04:50 73 20 94 12/17/23 04:40 72 20 94 12/17/23 04:30 71 23 96 12/17/23 04:20 71 23 96 12/17/23 04:10 74 21 94 12/17/23 04:00 72 22 95 12/17/23 03:59 74 20 179/84 H 95 12/17/23 03:59 95 12/17/23 03:50 74 23 96 12/17/23 03:40 75 22 97 12/17/23 03:30 91 H 20 94 12/17/23 03:20 75 19 96 12/17/23 03:15 179/84 H 0402/24 03:15 75 19 97 12/17/23 03:10 76 21 99 12/17/23 03:03 80 12/17/23 03:01 81 16 99 12/17/23 03:00 200/91 H 12/16/23 23:43 37.0 C 81 20 204/84 H 96 O2 Del Method 12/17/23 07:53 12/17/23 06:40 12/17/23 06:30 12/17/23 06:20 12/17/23 06:10 12/17/23 06:06 Room Air 12/17/23 06:05 12/17/23 06:05 12/17/23 06:00 12/17/23 05:50 12/17/23 05:40 12/17/23 05:30 12/17/23 05:20 12/17/23 05:10 12/17/23 05:05 12/17/23 05:05 12/17/23 05:00 12/17/23 04:50 12/17/23 04:40 12/17/23 04:30 12/17/23 04:20 12/17/23 04:10 12/17/23 04:00 12/17/23 03:59 Room Air 12/17/23 03:59 Room Air 12/17/23 03:50 12/17/23 03:40 12/17/23 03:30 12/17/23 03:20 12/17/23 03:15 12/17/23 03:15 12/17/23 03:10 12/17/23 03:03 12/17/23 03:01 12/17/23 03:00 12/16/23 23:43 Room Air Laboratory Results Cardiac Enzymes 12/16/23 12/17/23 Range/Units 23:51 07:29 AST 15 (13-39) U/L Troponin I High Sens 4.6 4.0 (0-14) pg/ml Coagulation 12/16/23 Range/Units 23:51 PT 11.3 (9.0-12.0) Seconds APTT 27 (21-31) Seconds CBC 12/16/23 12/17/23 Range/Units 23:51 07:29 WBC 7.44 7.26 (4.8-10.8) K/ul RBC 4.44 4.39 (4.20-5.40) M/uL Hgb 13.0 12.9 (12.0-16.0) g/dl Hct 38.7 38.4 (37.0-47.0) % Plt Count 235 203 (130-400) K/uL Neut # (Auto) 4.84 4.66 (1.40-6.50) K/uL Lymph # (Auto) 1.53 1.71 (1.20-3.40) K/uL [place] # (Auto) 0.83 H 0.70 H (0.11-0.59) K/uL Eos # (Auto) 0.19 0.15 (0.00-0.50) K/uL Baso # (Auto) 0.03 0.02 (0.00-0.20) K/uL Comprehensive Metabolic Panel 12/16/23 12/17/23 Range/Units 23:51 07:29 Sodium 132 L 132 L (136-145) mmol/L Potassium 3.3 L 3.7 (3.5-5.1) mmol/L Chloride 98 100 (98-107) mmol/L Carbon Dioxide 26 25 (21-32) mmol/L BUN 24 H 19 (6-23) mg/dl Creatinine 0.86 0.63 (0.6-1.2) mg/dl Glucose 109 H 99 (70-99(Fasting)) mg/dl Calcium 9.5 9.3 (8.6-10.3) mg/dl AST 15 (13-39) U/L ALT 10 (7-52) U/L Alkaline Phosphatase 102 (34-104) U/L Total Protein 7.4 (6.0-8.3) gm/dl Albumin 4.1 (3.4-5.0) gm/dl Intake and Output 12/16/23 12/17/23 12/17/23 22:59 06:59 14:59 Intake Total 0 / 0 Balance 0 / 0 Intake: Oral 0 / 0 Other: Weight 49.5 kg Weight Measurement Method Built in [facility] Diagnostic Findings Telemetry reviewed: NSR, no arrhythmias. Echo completed this morning, dated 12/17/23: LV function is hyperdynamic with ejection fraction 65 to 70% No regional wall motion abnormalities noted. Mild concentric LVH. Aortic valve is mildly calcified without aortic stenosis. Moderate calcification of the mitral valve without significant mitral regurgitation. No mitral stenosis. Grade 1 diastolic dysfunction. EKG reviewed from admission: Normal sinus rhythm Possible Left atrial enlargement Inferior infarct (cited on or before 08-NOV-2021) Anterolateral infarct (cited on or before 08-NOV-2021) When compared with ECG of 14-SEP-2022 19:22, No significant change was found Repeat EKG 12/17/23 at 7:30 AM NSR possible old anterior infarct. T Wave inversion in lead III now noted. Chest xray reviewed: no acute process Prior outside data reviewed Echo reviewed from February 2023: The qualitative LV ejection fraction is 60-64% (normal). The left atrium is moderately enlarged (42-48 ml/m^2). The left ventricular diastolic function is mildly abnormal (grade I). Moderate aortic valve sclerosis is present. There is severe mitral annular calcification. Severe focal calcification involving the tip of the anterior mitral valve leaflet. Mild to moderate mitral regurgitation. Mild tricuspid regurgitation is present. There is no evidence of pulmonary hypertension. Medications Administered Current Inpatient Medications Acetaminophen (Acetaminophen 325 Mg Tab) 650 mg PO Q4H PRN PRN Reason: Pain or Fever Stop: 01/16/24 03:40 Ascorbic Acid (Ascorbic Acid 500 Mg Tab) 250 mg PO DAILY [facility] Stop: 01/16/24 08:59 Last Admin: 12/17/23 08:16 Dose: 250 mg Aspirin (Aspirin 81 Mg Ectab) [facility] [place] Stop: 01/16/24 08:59 Last Admin: 12/17/23 08:15 Dose: 81 mg Cyanocobalamin (Cyanocobalamin (B-12) 500 Mcg Tablet) 1,000 mcg PO DAILY [facility] Stop: 01/16/24 08:59 Last Admin: 12/17/23 08:16 Dose: 1,000 mcg Felodipine (Felodipine 5 Mg Tabcr) [facility] [place] Stop: 01/16/24 08:59 Last Admin: 12/17/23 08:16 Dose: 5 mg Guaifenesin (Guaifenesin 600 Mg Tabcr) 600 mg PO QAM [facility] Stop: 01/16/24 08:59 Last Admin: 12/17/23 08:15 Dose: 600 mg Labetalol HCl (Labetalol Hcl Iv 5 Mg/Ml 20ml) 10 mg IV Q4H PRN PRN Reason: SBP > 180 Stop: 01/16/24 03:40 Lorazepam (Lorazepam 0.5 Mg Tab) 0.5 mg PO TID PRN PRN Reason: Anxiety Stop: 01/16/24 03:40 Nitroglycerin (Nitroglycerin Sl 0.4 Mg/Tab Tab) 0.4 mg SL Q5M PRN PRN Reason: Chest Pain Stop: 01/16/24 03:40 Polyethylene Glycol (Polyethylene (Miralax) 17 Gm Pack) 17 gm PO DAILY PRN PRN Reason: Constipation Stop: 01/16/24 03:40 Sertraline HCl (Sertraline Hcl 50 Mg Tablet) 37.5 mg PO QAM [facility] Stop: 01/16/24 08:59 Last Admin: 12/17/23 08:15 Dose: 37.5 mg Sodium Chloride (Sodium Chloride 0.65% Na Soln 45 Ml (Rush)) 1 sprays NA BID [facility]IN[facility] Stop: 01/16/24 04:03 Last Admin: 12/17/23 08:17 Dose: 1 sprays Vitamin D (Cholecalciferol 25 Mcg (1000 Units) Tab) 25 mcg PO QPM [facility] Stop: 01/16/24 20:59 (1) HTN (hypertension) Hypertension type: unspecified Qualified Code(s): I10 - Essential (primary) hypertension (2) Chest pain Chest pain type: unspecified Qualified Code(s): R07.9 - Chest pain, unspecified
[2023-12-17] MEDS: LORazepam 0.5 MG TAB PO PRN (17:12)
[2023-12-17] MEDS: LABETALOL HCL IV 5 MG/ML 20ML IV PRN (18:04)
--- NOTE | 2023-12-17 18:44 | Hospitalist Progress Note ---
Date of Service December 17, 2023 delayed entry date of service noted above Assessment & Plan (1) Chest pain: Plan: Per admitting service notes with addendum: 88-year-old female with past medical history significant for hypertension, generalized osteoarthritis, osteoporosis, Sjogren's syndrome, generalized anxiety disorder, asymmetric's sensorineural hearing loss who lives at [facility] comes because of chest pain. Patient had chest pain which lasted maybe 15 to 20 minutes in the middle of the chest 5/10 in severity which prompted her to come to the ER. Blood pressure was elevated in the ER. Patient states hasa lot of anxiety. She gets neck pains from anxiety. Currently denies any headache. No runny nose or sore throat. Vision is okay. No dizziness. No sweating. No nausea. No shortness of breath. No abdominal pain. Normal bowel and bladder movements. Resting comfortably. Likes to go home but agreed to stay for further workup Chest pain Rule out ACS Initial EKG and troponin okay Will follow serial enzymes and echo and repeat EKG N.p.o. for now Consult cardiology for further recommendations 4/2 ACS ruled out Cardiology service consulted Hypertensive urgency Continue home amlodipine IV labetalol as needed Will monitor. 4/2 Felodipine increased to 7.5 mg p.o. daily next Generalized anxiety disorder Continue home medications Psych consulted DVT prophylaxis SCDs Disposition Telemetry Full code Admission and Anticipated Discharge Date Admission Date: December 17, 2023 Subjective Follow-up for chest pain, hypertensive urgency, etc. Seen resting in bed, comfortable, not in distress Somewhat anxious Denies chest pain, palpitations, dizziness, headache, nausea vomiting No other new symptom Review of Systems Review of Systems: all noted and negative except for above Physical Exam Physical Exam: General- oriented x 3, not in distress, speaks in sentences with no effort or accessory muscle use Eyes- anicteric Neck- no JVD Lungs- clear breath sounds bilaterally, no rales/wheezes Heart- normal rate, regular rhythm; no murmurs Abdomen- normal bowel sounds, nondistended, soft, nontender Extremities- no pretibial edema, no calf tenderness Neuro- alert, oriented x 3; no gross focal neurologic deficits Skin- warm & dry Results & Data Results & Data Vital Signs (Past 12 Hours) Vital Signs Temp Pulse Pulse Resp BP BP BP 12/17/23 18:13 74 170/76 H 12/17/23 18:04 89 192/89 H 12/17/23 18:00 36.6 C 89 19 192/89 H 12/17/23 17:22 77 16 178/93 H 12/17/23 15:26 77 12/17/23 14:40 81 21 12/17/23 14:30 80 22 12/17/23 14:20 79 25 H 12/17/23 14:10 81 15 12/17/23 14:04 92 H 20 12/17/23 13:50 82 24 12/17/23 13:40 81 19 12/17/23 13:30 85 25 H 12/17/23 13:20 88 24 12/17/23 13:10 92 H 17 12/17/23 13:00 92 H 23 12/17/23 12:50 87 17 12/17/23 12:40 80 22 12/17/23 12:30 81 22 12/17/23 12:20 78 21 12/17/23 12:10 79 19 12/17/23 12:00 79 21 12/17/23 11:50 79 20 12/17/23 11:45 159/77 H 12/17/23 11:45 76 20 12/17/23 11:20 81 23 12/17/23 11:10 86 15 12/17/23 11:00 78 25 H 12/17/23 10:50 79 29 H 12/17/23 10:40 79 23 12/17/23 10:30 85 25 H 12/17/23 10:25 172/84 H 12/17/23 10:25 83 17 12/17/23 10:20 84 23 12/17/23 10:10 79 22 12/17/23 10:00 78 21 12/17/23 09:50 74 20 12/17/23 09:40 72 23 12/17/23 09:30 76 22 12/17/23 09:20 74 20 12/17/23 09:10 79 22 12/17/23 09:00 79 20 12/17/23 08:50 80 21 12/17/23 08:40 79 25 H 12/17/23 08:20 82 18 12/17/23 08:19 159/83 H 12/17/23 08:19 83 21 04/02/24 08:10 79 21 12/17/23 08:00 80 21 12/17/23 07:53 82 12/17/23 07:50 81 20 12/17/23 07:40 78 20 12/17/23 07:30 80 20 12/17/23 07:20 80 22 12/17/23 07:10 81 20 12/17/23 07:00 82 23 12/17/23 06:50 78 19 Pulse Ox O2 Del Method 12/17/23 18:13 12/17/23 18:04 12/17/23 18:00 96 Room Air 12/17/23 17:22 95 Room Air 12/17/23 15:26 12/17/23 14:40 94 12/17/23 14:30 93 12/17/23 14:20 94 12/17/23 14:10 96 12/17/23 14:04 94 12/17/23 13:50 94 12/17/23 13:40 96 12/17/23 13:30 95 12/17/23 13:20 95 12/17/23 13:10 94 12/17/23 13:00 94 12/17/23 12:50 96 12/17/23 12:40 93 12/17/23 12:30 93 12/17/23 12:20 93 12/17/23 12:10 93 12/17/23 12:00 94 12/17/23 11:50 96 12/17/23 11:45 12/17/23 11:45 12/17/23 11:20 94 12/17/23 11:10 97 12/17/23 11:00 95 12/17/23 10:50 95 12/17/23 10:40 96 12/17/23 10:30 94 12/17/23 10:25 12/17/23 10:25 95 12/17/23 10:20 95 12/17/23 10:10 94 12/17/23 10:00 94 12/17/23 09:50 95 12/17/23 09:40 94 12/17/23 09:30 92 12/17/23 09:20 93 12/17/23 09:10 94 12/17/23 09:00 94 12/17/23 08:50 93 12/17/23 08:40 95 12/17/23 08:20 95 12/17/23 08:19 12/17/23 08:19 93 12/17/23 08:10 93 12/17/23 08:00 94 12/17/23 07:53 12/17/23 07:50 93 12/17/23 07:40 94 12/17/23 07:30 94 12/17/23 07:20 94 12/17/23 07:10 94 12/17/23 07:00 95 12/17/23 06:50 96 all noted and reviewed including below (1) Chest pain Chest pain type: unspecified Qualified Code(s): R07.9 - Chest pain, unspecified
[2023-12-17] MEDS: CHOLECALCIFEROL 25 MCG (1000 UNITS) TAB PO SCH (19:54)
[2023-12-18] MEDS: LOSARTAN POTASSIUM 25 MG TAB PO SCH (09:32)
[2023-12-18] MEDS: FELODIPINE 2.5 MG TABCR PO SCH (09:32)
[2023-12-18] MEDS: POLYETHYLENE (MIRALAX) 17 GM PACK PO PRN (13:35)
--- NOTE | 2023-12-18 15:54 | Cardiology Progress Note ---
Date of Service December 18, 2023 Assessment & Plan (1) HTN (hypertension): (2) Chest pain: (3) Anxiety: (4) Hypokalemia: Plan Patient is an 88-year-old admitted with chest pain/epigastric pain and hypertensive urgency. Blood pressure improved in the ER with IV labetalol and then she received oral home dose felodipine this morning. Significant situational component as today is the anniversary of her 's . She also has significant underlying anxiety and sees a psychiatrist. EKG was without acute ischemic changes. High-sensitivity troponin negative x 2. Echocardiogram with hyperdynamic function and no wall motion abnormalities. Patient took Am meds about 30 min prior to consultation. Recommend rechecking BP in an hour. If elevated, consider adding IMELDA/ARB or increasing felodipine dose to 10 mg. At this time, would not recommend any other further cardiac testing. She can follow up with PCP for further BP management and anxiety management. 12/18/23: Patient kept overnight due to persistently elevated BP readings. Felodipine increased from 5 to 7.5 mg daily yesterday. BP remained rei this morning. Losartan 25 mg added. BP remained high this afternoon so losartan was increased to 50 mg daily. BP has trended down since admission. Likely strong situational component. May benefit from discharge and follow up with PCP. No further cardiac testing warranted. Will sign off. Please notify marketing production manager cardiology provider with additional questions or concerns. Case discussed with Dr. Joiner I spent a total of 35 minutes on the date of service in preparation, delivery, and documentation of the care provided to this patient, excluding any time spent in the performance of separately billed services. Yana Downey PA-C Department of Cardiology, [facility] This chart was completed in part utilizing Speech Voice Recognition Software. Grammatical errors, random word insertions, pronoun errors, and incomplete sentences are an occasional consequence of this system due to software limitations, ambient noise, and hardware issues. Any formal questions or concerns about the content, text, or information contained within the body of this dictation should be directly addressed to the provider for clarification. Admission and Anticipated Discharge Date Admission Date: December 17, 2023 Supervising Physician Co-Signing Physician Notes Attending attestation: Case reviewed with the advanced practitioner. I have personally performed a history and physical examination on the patient. I have reviewed the advanced practitioner's documentation on the date of service referenced in note, and I agree with, and take responsibility for the plan of care. I spent a total of 20 minutes coordinating, documenting, and providing care for this patient excluding time spent in the performance of separately billed services or time spent by another provider. Jairo Joiner, Subjective Patient resting comfortably in bed. Denies acute cardiac complaints. No chest pain or SOB. prior complaints of left sided pain resolved without recurrence. No orthopnea, PND or edema. Initial plan was to be discharged yesterday but due to persistently elevated BP, patient kept overnight. Review of Systems Review of Systems: All systems reviewed & are unremarkable except as noted in HPI & below Physical Exam Constitutional: WD/WN, vitals as above well nourished; no acute distress Neck: trachea midline, no thyromegaly Respiratory: normal respiratory effort, lungs clear to auscultation Cardiovascular: Rate/Rhythm: regular rate and regular rhythm Heart Sounds: + murmur (I/ systolic murmur) Vessels: no JVD Extremities: no edema Gastrointestinal (Abdomen): normal bowel sounds, soft, nontender, no hepatosplenomegaly Skin: no rashes, warm and dry Psychiatric: A+Ox3, euthymic affect Results & Data Vital Signs (Past 12 Hours) Vital Signs Temp Pulse Pulse Resp BP Pulse Ox O2 Del Method 12/18/23 15:08 36.3 C L 80 19 161/67 H 97 Room Air 12/18/23 11:39 36.7 C 76 19 179/72 H 96 Room Air 12/18/23 07:11 72 12/18/23 07:08 36.8 C 78 18 183/78 H 96 Room Air Laboratory Results Cardiac Enzymes 12/17/23 Range/Units 17:10 Troponin I High Sens 3.8 (0-14) pg/ml Intake and Output 12/18/23 12/18/23 12/18/23 06:59 14:59 22:59 Intake Total 120 / 120 560 / 560 Balance 120 / 120 560 / 560 Intake: Oral 120 / 120 560 / 560 Other: Weight 47.9 kg Diagnostic Findings Telemetry reviewed: NSR in the 60-70's Medications Administered Current Inpatient Medications Acetaminophen (Acetaminophen 325 Mg Tab) 650 mg PO Q4H PRN PRN Reason: Pain or Fever Stop: 01/16/24 03:40 Ascorbic Acid (Ascorbic Acid 500 Mg Tab) 250 mg PO DAILY [facility] Stop: 01/16/24 08:59 Last Admin: 12/18/23 09:28 Dose: 250 mg Aspirin (Aspirin 81 Mg Ectab) [facility] [place] [facility] Stop: 01/16/24 08:59 Last Admin: 12/18/23 09:31 Dose: 81 mg Cyanocobalamin (Cyanocobalamin (B-12) 500 Mcg Tablet) 1,000 mcg PO DAILY [facility] Stop: 01/16/24 08:59 Last Admin: 12/18/23 09:31 Dose: 1,000 mcg Felodipine (Felodipine 2.5 Mg Tabcr) 7.5 mg PO [facility] Stop: 01/17/24 08:59 Last Admin: 12/18/23 09:32 Dose: 7.5 mg Guaifenesin (Guaifenesin 600 Mg Tabcr) 600 mg PO [facility] Stop: 01/16/24 08:59 Last Admin: 12/18/23 09:27 Dose: 600 mg Labetalol HCl (Labetalol Hcl Iv 5 Mg/Ml 20ml) 10 mg IV Q4H PRN PRN Reason: SBP > 180 Stop: 01/16/24 03:40 Last Admin: 12/17/23 18:04 Dose: 10 mg Lorazepam (Lorazepam 0.5 Mg Tab) 0.5 mg PO TID PRN PRN Reason: Anxiety Stop: 01/16/24 03:40 Last Admin: 12/18/23 09:34 Dose: 0.5 mg Losartan Potassium (Losartan Potassium 50 Mg Tab) [facility] [place] Stop: 01/18/24 08:59 Losartan Potassium (Losartan Potassium 25 Mg Tab) 25 mg PO ONE ONE Stop: 12/18/23 15:51 Nitroglycerin (Nitroglycerin Sl 0.4 Mg/Tab Tab) 0.4 mg SL Q5M PRN PRN Reason: Chest Pain Stop: 01/16/24 03:40 Polyethylene Glycol (Polyethylene (Miralax) 17 Gm Pack) 17 gm PO DAILY PRN PRN Reason: Constipation Stop: 01/16/24 03:40 Last Admin: 12/18/23 13:35 Dose: 17 gm Sertraline HCl (Sertraline Hcl 50 Mg Tablet) 37.5 mg [facility] [place] Stop: 01/16/24 08:59 Last Admin: 12/18/23 09:34 Dose: 37.5 mg Sodium Chloride (Sodium Chloride 0.65% Na Soln 45 Ml ([place])) 1 sprays NA BID [facility] Stop: 01/16/24 04:03 Last Admin: 12/18/23 09:34 Dose: 1 sprays Vitamin D (Cholecalciferol 25 Mcg (1000 Units) Tab) 25 mcg PO QPM [facility] Stop: 01/16/24 20:59 Last Admin: 12/17/23 19:54 Dose: 25 mcg (1) HTN (hypertension) Hypertension type: unspecified Qualified Code(s): I10 - Essential (primary) hypertension (2) Chest pain Chest pain type: unspecified Qualified Code(s): R07.9 - Chest pain, unspecified
--- NOTE | 2023-12-18 16:09 | Psychiatric Consultation ---
Date of Consultation December 18, 2023 Impression / Recommendations Impression Diagnostically consistent with THADDEUS based on historical symptoms, she reports using coping strategies to help manage anxiety and some improvement since being in the hospital. Acute risk of self-harm is low given denial of SI. She finds her current medications helpful but wonders about possibly increasing sertraline at some point. Overall, I spent a total of 45 minutes with this case including review of chart records, review of labwork, review of EKG QTc, direct evaluation of the patient at bedside, counseling the patient, discussion of the patient with the hospitalist provider, discussion with the psychiatric liason during clinical rounds and documentation in the electronic health record. (1) Anxiety: Plan -Consider increasing to sertraline 50 mg qd once hyponatremia improves, continue 37.5mg for now -Over time in outpatient setting would encourage slow taper of ativan as tolerated, consider by 0.125 or 0.25mg per month, given risks of cognitive effects and falls which are particularly concerning in someone over age 65 Psych History Identifying Data 88 yo woman who lives at the [facility] admitted medically for chest pain. Psychiatry consulted for recommendations for anxiety. Chief Complaint "I'm feeling a lot more positive". History of Present Illness Lisa describes increased anxiety and some episodes of lower mood prior to admission due to of friends/family, anniversary of her 's and recent medical symptoms. She was started on sertraline about 1.5-2 months ago by her primary care provider which she has been tolerating well. She has been on ativan for many years prn and finds this helpful without any side effects. She reports significant lessening of anxiety since being in the hospital and has been "focusing on the positive". She has an outpatient therapist she sees once monthly and finds helpful for strategies for anxiety. Allergies Allergy/AdvReac Type Severity Reaction Status Date / Time amoxicillin Allergy Intermediate Rash Verified 12/17/23 01:43 loratadine Allergy Intermediate Rash Verified 12/17/23 01:43 [From Claritin-D 12 Hour] Penicillins Allergy Intermediate AMOXICILLIN Verified 12/17/23 01:43 -RASH pseudoephedrine Allergy Intermediate Rash Verified 12/17/23 01:43 [From Claritin-D 12 Hour] Sulfa (Sulfonamide Allergy Intermediate Urticaria Verified 12/17/23 01:43 Antibiotics) and puritis hydrocodone AdvReac Severe SEVERE Verified 12/17/23 01:43 NAUSEA & VOMITIMG prednisone AdvReac Intermediate ELEVATED Verified 12/17/23 01:43 B/P PER [facility] Home Medications Medication Instructions Recorded Confirmed Type sertraline 25 mg tablet 37.5 mg PO QAM 08/11/19 12/17/23 History felodipine 5 mg tablet,extended 5 mg PO QAM 02/08/21 12/17/23 History release 24 hr guaifenesin 600 mg tablet, 600 mg PO QAM Congestion 11/08/21 12/17/23 History extended release 12 hr (Mucinex) lorazepam 0.5 mg tablet 0.5 mg PO TID PRN Anxiety 11/08/21 12/17/23 History ascorbic acid (vitamin C) 250 mg 250 mg PO DAILY 12/17/23 12/17/23 History tablet (Vitamin C) calcium carbonate 600 mg calcium 600 mg PO QPM 12/17/23 12/17/23 History (1,500 mg) tablet cholecalciferol (vitamin D3) 25 25 mcg PO QPM 12/17/23 12/17/23 History mcg (1,000 unit) capsule (Vitamin D3) cyanocobalamin (vitamin B-12) 1,000 mcg PO DAILY 12/17/23 12/17/23 History 1,000 mcg tablet (Vitamin B-12) sodium chloride 3 % nasal mist 1 spray intranasal BID 12/17/23 12/17/23 History (Saline Nasal Mist) vitamins A,C,[id number] 4,296 1 cap PO BID 12/17/23 12/17/23 History mcg-226 mg-90 mg capsule (ICaps AREDS) Patient History Medical History Anxiety Vertigo Dizziness Hypertension Sinusitis Surgical History S/P hysterectomy Social History Smoking Status: Never smoker Hx Alcohol Use: No Hx Substance Use: No Preferred Language: Korean Communication Ability: Effective Timber Watchman Required: No Beliefs That Will Affect Care: None Current Living Situation: Alone Feels Safe at Home: Yes Assistive Devices: Walker Physical Exam Psychiatric: Orientation: alert and oriented x 3 Apperance: appropriately dressed and appropriately groomed Eye Contact: good eye contact Motor Behavior: no abnormal motor movements Speech: normal rate/rhythm/volume of speech Affect: euthymic affect Mood: no depressed mood and no anxious mood Thought Process: linear/logical thought process Thought Content: reality based without delusions Suicidal Thoughts: denies suicidal thoughts Homicidal Thoughts: denies homicidal thoughts Hallucinations: no auditory hallucinations and no visual hallucinations Cognition: recent memory grossly intact, remote memory grossly intact, attention grossly intact and language grossly intact Estimated Intelligence: consistent with education level Insight: + fair insight Judgment: + fair judgement Vital Signs (Past 24 Hours): Last Vital Signs Temp 36.3 C L 12/18/23 15:08 Pulse 80 12/18/23 15:08 Resp 19 12/18/23 15:08 BP 161/67 H 12/18/23 15:08 Pulse Ox 97 12/18/23 15:08 O2 Del Method Room Air 12/18/23 15:08 Review of Systems All systems reviewed & are unremarkable except as noted in HPI & below Results & Data (PSY) Laboratory Results hyponatremia, QTc<470 Medications Administered Ascorbic Acid (Ascorbic Acid 500 Mg Tab) 250 mg PO DAILY [facility] Stop: 01/16/24 08:59 Last Admin: 12/18/23 09:28 Dose: 250 mg Documented By: Admin: 12/17/23 08:16 Dose: 250 mg Documented By: MICHAEL Aspirin (Aspirin 81 Mg Ectab) 81 mg PO QAM [facility] Stop: 01/16/24 08:59 Last Admin: 12/18/23 09:31 Dose: 81 mg Documented By: Admin: 12/17/23 08:15 Dose: 81 mg Documented By: MICHAEL Cyanocobalamin (Cyanocobalamin (B-12) 500 Mcg Tablet) 1,000 mcg PO DAILY [facility] Stop: 01/16/24 08:59 Last Admin: 12/18/23 09:31 Dose: 1,000 mcg Documented By: Admin: 12/17/23 08:16 Dose: 1,000 mcg Documented By: MICHAEL Felodipine (Felodipine 2.5 Mg Tabcr) 7.5 mg PO QAM [facility] Stop: 01/17/24 08:59 Last Admin: 12/18/23 09:32 Dose: 7.5 mg Documented By: ANJELICA Guaifenesin (Guaifenesin 600 Mg Tabcr) 600 mg PO QAM [facility] Stop: 01/16/24 08:59 Last Admin: 12/18/23 09:27 Dose: 600 mg Documented By: Admin: 12/17/23 08:15 Dose: 600 mg Documented By: MICHAEL Labetalol HCl (Labetalol Hcl Iv 5 Mg/Ml 20ml) 10 mg IV Q4H PRN PRN Reason: SBP > 180 Stop: 01/16/24 03:40 Last Admin: 12/17/23 18:04 Dose: 10 mg Documented By: DELBERT Co-signed By: JOSE Lorazepam (Lorazepam 0.5 Mg Tab) 0.5 mg PO TID PRN PRN Reason: Anxiety Stop: 01/16/24 03:40 Last Admin: 12/18/23 09:34 Dose: 0.5 mg Documented By: Admin: 12/17/23 17:12 Dose: 0.5 mg Documented By: CRISTIANA Polyethylene Glycol (Polyethylene (Miralax) 17 Gm Pack) 17 gm PO DAILY PRN PRN Reason: Constipation Stop: 01/16/24 03:40 Last Admin: 12/18/23 13:35 Dose: 17 gm Documented By: ANJELICA Sertraline HCl (Sertraline Hcl 50 Mg Tablet) 37.5 mg PO QAM [facility] Stop: 01/16/24 08:59 Last Admin: 12/18/23 09:34 Dose: 37.5 mg Documented By: Admin: 12/17/23 08:15 Dose: 37.5 mg Documented By: MICHAEL Sodium Chloride (Sodium Chloride 0.65% Na Soln 45 Ml ([place])) 1 sprays NA BID [facility] Stop: 01/16/24 04:03 Last Admin: 12/18/23 09:34 Dose: 1 sprays Documented By: Admin: 12/17/23 20:31 Dose: 1 sprays Documented By: Admin: 12/17/23 08:17 Dose: 1 sprays Documented By: Admin: 12/17/23 04:09 Dose: Not Given Documented By: MARY JANE Vitamin D (Cholecalciferol 25 Mcg (1000 Units) Tab) 25 mcg PO QPM [facility] Stop: 01/16/24 20:59 Last Admin: 12/17/23 19:54 Dose: 25 mcg Documented By: XOCHITL Coding Level of Care Code 09363 IN/OBS CONSULT LVL 3,45M Diagnoses Anxiety F41.9
[2023-12-18] MEDS: LOSARTAN POTASSIUM 25 MG TAB PO ONE (17:08)
--- NOTE | 2023-12-18 19:34 | Hospitalist Progress Note ---
Date of Service December 18, 2023 Assessment & Plan (1) Chest pain: Plan: per admitting service notes with addendum: 88-year-old female with past medical history significant for hypertension, generalized osteoarthritis, osteoporosis, Sjogren's syndrome, generalized anxiety disorder, asymmetric's sensorineural hearing loss who lives at [facility] comes because of chest pain. Patient had chest pain which lasted maybe 15 to 20 minutes in the middle of the chest 5/10 in severity which prompted her to come to the ER. Blood pressure was elevated in the ER. Patient states hasa lot of anxiety. She gets neck pains from anxiety. Currently denies any headache. No runny nose or sore throat. Vision is okay. No dizziness. No sweating. No nausea. No shortness of breath. No abdominal pain. Normal bowel and bladder movements. Resting comfortably. Likes to go home but agreed to stay for further workup Chest pain Rule out ACS Initial EKG and troponin okay Will follow serial enzymes and echo and repeat EKG N.p.o. for now Consult cardiology for further recommendations 4/3 ACS ruled out Sales Professional Bilingual consulted Hypertensive urgency Continue home amlodipine IV labetalol as needed Will monitor. 4/3 Felodipine increased to 7.5mg daily Losartan 50mg po daily added monitor Generalized anxiety disorder Psych consulted patient feels better after talking to Behavioral Unit Team and nursing staff Continue home medications for now DVT prophylaxis SCDs Disposition d/c home when medically stable Admission and Anticipated Discharge Date Admission Date: December 17, 2023 Subjective ff up for hypertension, etc seen resting in bed, comfortable in good spirits states she feels better overall no chest pain, dyspnea, palpitations, dizziness mood is better no other symptoms Review of Systems Review of Systems: all noted and negative except for above Physical Exam Physical Exam: General- oriented x 3, not in distress, speaks in sentences with no effort or accessory muscle use Eyes- anicteric Neck- no JVD Lungs- clear breath sounds bilaterally, no rales/wheezes Heart- normal rate, regular rhythm; no murmurs Abdomen- normal bowel sounds, nondistended, soft, nontender Extremities- no pretibial edema, no calf tenderness Neuro- alert, oriented x 3; no gross focal neurologic deficits Skin- warm & dry Results & Data Results & Data Vital Signs (Past 12 Hours) Vital Signs Temp Pulse Pulse Resp BP Pulse Ox O2 Del Method 12/18/23 16:40 81 12/18/23 15:08 36.3 C L 80 19 161/67 H 97 Room Air 12/18/23 11:39 36.7 C 76 19 179/72 H 96 Room Air all noted and reviewed including below (1) Chest pain Chest pain type: unspecified Qualified Code(s): R07.9 - Chest pain, unspecified
--- NOTE | 2023-12-19 07:20 | Electrocardiogram Report ---
Test Reason : Blood Pressure : / mmHG Vent. Rate : 079 BPM Atrial Rate : 079 BPM P-R Int : 156 ms QRS Dur : 088 ms QT Int : 390 ms P-R-T Axes : 050 -20 051 degrees QTc Int : 447 ms Normal sinus rhythm Possible Left atrial enlargement Inferior infarct (cited on or before 08-NOV-2021) Anterolateral infarct (cited on or before 08-NOV-2021) Abnormal ECG When compared with ECG of 14-SEP-2022 19:22, No significant change was found Confirmed by Raleigh Olivares ([id number]) on 12/19/2023 7:19:55 AM Referred By: REFERRED SELF Confirmed By:Raleigh Olivares
--- NOTE | 2023-12-19 07:33 | Electrocardiogram Report ---
Test Reason : Blood Pressure : / mmHG Vent. Rate : 080 BPM Atrial Rate : 080 BPM P-R Int : 174 ms QRS Dur : 086 ms QT Int : 384 ms P-R-T Axes : -12 076 -02 degrees QTc Int : 442 ms Normal sinus rhythm Anterior infarct (cited on or before 08-NOV-2021) Abnormal ECG When compared with ECG of 17-DEC-2023 00:00, (unconfirmed) Criteria for Inferior infarct are no longer Present T wave inversion now evident in Inferior leads Confirmed by Raleigh Olivares ([id number]) on 12/19/2023 7:33:14 AM Referred By: REFERRED SELF Confirmed By:Raleigh Olivares
[2023-12-19] MEDS: LOSARTAN POTASSIUM 50 MG TAB PO SCH (07:38)
--- NOTE | 2023-12-19 17:45 | Discharge Summary ---
Discharge Summary Date of Service December 19, 2023 Notes For Next Care Provider Medication Changes From Visit Felodipine- increased to 7.5mg po daily Losartan- for blood pressure control Admission HPI Per Admitting Provider 88-year-old female with past medical history significant for hypertension, generalized osteoarthritis, osteoporosis, Sjogren's syndrome, generalized anxiety disorder, asymmetric's sensorineural hearing loss who lives at [facility] comes because of chest pain. Patient had chest pain which lasted maybe 15 to 20 minutes in the middle of the chest 5/10 in severity which prompted her to come to the ER. Blood pressure was elevated in the ER. Patient states has lot of anxiety. She gets neck pains from anxiety. Currently denies any headache. No runny nose or sore throat. Vision is okay. No dizziness. No sweating. No nausea. No shortness of breath. No abdominal pain. Normal bowel and bladder movements. Resting comfortably. Likes to go home but agreed to stay for further workup. Past med history. As mentioned above Past surgical history. Colonoscopy. Total abdominal hysterectomy with removal of tubes Social history. . No smoking. Alcohol rarely. No drug use. Family history. Mother had arthritis. Stroke. Maternal grandmother had arthritis. Leukemia. Admission Exam Per Admitting Provider General- Not in distress Head- atraumatic Eyes- PERRL. ENT- oropharynx clear Neck- supple, no JVD. Lungs- clear to auscultation no wheezing or crackles. Heart- regular rhythm; no murmur, no gallop. Abdomen- normal bowel sounds, soft, nontender, no distension. Extremities- no pretibial edema, no erythema seen. Neuro- alert, oriented PERRL, no facial palsy; no dysarthria; moves extremities. Skin- warm & dry Principal Dx & Hospital Course #1 = Principal Diagnosis (1) Chest pain: per admitting service notes with addendum: 88-year-old female with past medical history significant for hypertension, generalized osteoarthritis, osteoporosis, Sjogren's syndrome, generalized anxiety disorder, asymmetric's sensorineural hearing loss who lives at [facility] comes because of chest pain. Patient had chest pain which lasted maybe 15 to 20 minutes in the middle of the chest 5/10 in severity which prompted her to come to the ER. Blood pressure was elevated in the ER. Patient states hasa lot of anxiety. She gets neck pains from anxiety. Currently denies any headache. No runny nose or sore throat. Vision is okay. No dizziness. No sweating. No nausea. No shortness of breath. No abdominal pain. Normal bowel and bladder movements. Resting comfortably. Likes to go home but agreed to stay for further workup Chest pain Rule out ACS Initial EKG and troponin okay Will follow serial enzymes and echo and repeat EKG N.p.o. for now Consult cardiology for further recommendations 12/18 ACS ruled out [place] Technician consulted-Dr. Joiner, HOOD Downey No further cardiac testing at this point Hypertensive urgency Continue home amlodipine IV labetalol as needed Will monitor. 12/17 Felodipine increased to 7.5mg daily Losartan 50mg po daily added monitor 12/18 Blood pressure improving Continue above regimen Generalized anxiety disorder Psych consulted "-Consider increasing to sertraline 50 mg qd once hyponatremia improves, continue 37.5mg for now -Over time in outpatient setting would encourage slow taper of ativan as tolerated, consider by 0.125 or 0.25mg per month, given risks of cognitive effects and falls which are particularly concerning in someone over age 65" patient feels better after talking to Behavioral Unit Team and nursing staff Continue home medications for now Disposition d/c home ff up with PCP in 1 week Discharge Exam General- oriented x 3, not in distress, speaks in sentences with no effort or accessory muscle use Eyes- anicteric Neck- no JVD Lungs- clear breath sounds bilaterally, no rales/wheezes Heart- normal rate, regular rhythm; no murmurs Abdomen- normal bowel sounds, nondistended, soft, nontender Extremities- no pretibial edema, no calf tenderness Neuro- alert, oriented x 3; no gross focal neurologic deficits Skin- warm & dry Updated Medication List Medication Instructions Recorded Confirmed Type sertraline 25 mg tablet 37.5 mg PO QAM 08/11/19 12/17/23 History guaifenesin 600 mg tablet, 600 mg PO QAM Congestion 11/08/21 12/17/23 History extended release 12 hr (Mucinex) lorazepam 0.5 mg tablet 0.5 mg PO TID PRN Anxiety 11/08/21 12/17/23 History ascorbic acid (vitamin C) 250 mg 250 mg PO DAILY 12/17/23 12/17/23 History tablet (Vitamin C) calcium carbonate 600 mg PO QPM 12/17/23 12/17/23 History cholecalciferol (vitamin D3) 25 25 mcg PO QPM 12/17/23 12/17/23 History mcg (1,000 unit) capsule (Vitamin D3) cyanocobalamin (vitamin B-12) 1,000 mcg PO DAILY 12/17/23 12/17/23 History 1,000 mcg tablet (Vitamin B-12) sodium chloride 3 % nasal mist 1 spray intranasal BID 12/17/23 12/17/23 History (Saline Nasal Mist) vitamins A,C,J-erba-ypouap 4,296 1 cap PO BID 12/17/23 12/17/23 History mcg-226 mg-90 mg capsule (ICaps AREDS) felodipine 5 mg tablet,extended 7.5 mg (1.5 x 5 mg) PO QAM 30 days 12/19/23 Rx release 24 hr #45 tabs losartan 50 mg tablet 50 mg PO QAM 30 days #30 tabs 12/19/23 Rx Hospital Stay Data Consultations 12/17/23 01:38 ED Decision to Admit Stat 12/17/23 08:00 Consult Cardiology Routine 12/18/23 08:21 Consult Psychiatry Routine Diagnostic Imagining Performed Laboratory Results WBC 7.26 K/ul (4.8-10.8) 12/17/23 07:29 RBC 4.39 M/uL (4.20-5.40) 12/17/23 07:29 Hgb 12.9 g/dl (12.0-16.0) 12/17/23 07:29 Hct 38.4 % (37.0-47.0) 12/17/23 07:29 MCV 87.5 fL (80.0-100.0) 12/17/23 07:29 MCH 29.4 pg (25.0-34.0) 12/17/23 07:29 MCHC 33.6 g/dL (32.0-36.0) 12/17/23 07:29 RDW Std Deviation 43.0 fL (36.4-46.3) 12/17/23 07:29 RDW Coeff of Anya 13.5 % (11.5-14.5) 12/17/23 07:29 Plt Count 203 K/uL (130-400) 12/17/23 07:29 MPV 8.8 fL (9.4-12.4) L 12/17/23 07: Immature Gran % (Auto) 0.3 % 12/17/23 07: Neut % (Auto) 64.1 % 12/17/23 07: Lymph % (Auto) 23.6 % 12/17/23 07: Luce % (Auto) 9.6 % 12/17/23 07: Eos % (Auto) 2.1 % 12/17/23 07: Baso % (Auto) 0.3 % 12/17/23 07: Neut # (Auto) 4.66 K/uL (1.40-6.50) 12/17/23 07: Lymph # (Auto) 1.71 K/uL (1.20-3.40) 12/17/23 07: Luce # (Auto) 0.70 K/uL (0.11-0.59) H 12/17/23 07: Eos # (Auto) 0.15 K/uL (0.00-0.50) 12/17/23 07: Baso # (Auto) 0.02 K/uL (0.00-0.20) 12/17/23 07: Immature Gran # (Auto) 0.02 K/uL (0.01-0.20) 12/17/23 07: PT 11.3 Seconds (9.0-12.0) 12/16/23 23:51 INR 1.0 (0.9-1.1) 12/16/23 23:51 APTT 27 Seconds (21-31) 12/16/23 23:51 PTT Ratio 1.0 12/16/23 23:51 Sodium 132 mmol/L (136-145) L 12/17/23 07: Potassium 3.7 mmol/L (3.5-5.1) 12/17/23 07: Chloride 100 mmol/L (98-107) 12/17/23 07: Carbon Dioxide 25 mmol/L (21-32) 12/17/23 07: Anion Gap 7 (3-11) 12/17/23 07: BUN 19 mg/dl (6-23) 12/17/23 07: Creatinine 0.63 mg/dl (0.6-1.2) 12/17/23 07:29 Est Cr Clr Drug Dosing 42.4 ml/min 12/17/23 07:29 Est GFR ( Amer) 92.2 ml/min 12/17/23 07:29 Est GFR (Non-Af Amer) 79.5 ml/min 12/17/23 07:29 BUN/Creatinine Ratio 30.2 (10-20) H 12/17/23 07:29 Glucose 99 mg/dl (70-99(Fasting)) 12/17/23 07:29 Calcium 9.3 mg/dl (8.6-10.3) 12/17/23 07:29 Magnesium 2.0 mg/dl (1.7-2.4) 12/17/23 07:29 Total Bilirubin 0.5 mg/dl (0.2-1.0) 12/16/23 23:51 AST 15 U/L (13-39) 12/16/23 23:51 ALT 10 U/L (7-52) 12/16/23 23:51 Alkaline Phosphatase 102 U/L (34-104) 12/16/23 23:51 Troponin I High Sens 3.8 pg/ml (0-14) 12/17/23 17:10 Total Protein 7.4 gm/dl (6.0-8.3) 12/16/23 23:51 Albumin 4.1 gm/dl (3.4-5.0) 12/16/23 23:51 Globulin 3.3 gm/dl (2.5-4.0) 12/16/23 23:51 Albumin/Globulin Ratio 1.2 (0.9-2) 12/16/23 23:51 Impressions Chest X-Ray 12/16/23 23:48 XR chest 1V not portable CLINICAL HISTORY: Chest pain, nonspecific TECHNIQUE: Single frontal radiograph of the chest was obtained. Comparison: Comparison is made to chest radiograph 11/08/2021 FINDINGS: No lines and tubes are seen. Mitral annular calcification is seen. There is calcified aortic knob. The lungs are clear. No evidence of pleural effusion or pneumothorax. IMPRESSION: No acute chest disease. ACT 112: Negative or not required by law. Electronically signed by: Juan Ivory M.D. 12/17/2023 7:05 AM Pending Results Patient Have Any Pending Studies at Discharge: No Discharge Instructions Given to Patient (Per Discharging Provider) PLEASE REFER TO YOUR NEW MEDICATION LIST AND FOLLOW INSTRUCTIONS CAREFULLY. YOUR NEW MEDICATIONS INCLUDE: Felodipine- increased to 7.5mg po daily Losartan- for blood pressure control PLEASE CALL YOUR PRIMARY CARE PHYSICIAN OR RETURN TO THE ER IF WITH WORSENING OF SYMPTOMS, INCLUDING chest pain, shortness of breath, palpitations, dizziness, etc FOLLOW UP WITH PRIMARY CARE PHYSICIAN IN 1 WEEK. Total Time Total Time Spent Total Time Spent (In Minutes): >30 minutes
--- NOTE | 2023-12-21 00:20 | Electrocardiogram Report ---
Test Reason : Blood Pressure : / mmHG Vent. Rate : 068 BPM Atrial Rate : 068 BPM P-R Int : 170 ms QRS Dur : 092 ms QT Int : 428 ms P-R-T Axes : 068 -01 056 degrees QTc Int : 455 ms Poor data quality, interpretation may be adversely affected Normal sinus rhythm Cannot rule out Inferior infarct , age undetermined Cannot rule out Anterior infarct (cited on or before 08-NOV-2021) Abnormal ECG When compared with ECG of 17-DEC-2023 07:26, (unconfirmed) Prior tracing has L arm L leg lead reversal Confirmed by Raleigh Olivares ([id number]) on 12/21/2023 12:19:49 AM Referred By: REFERRED SELF Confirmed By:Raleigh Olivares
--- NOTE | 2023-12-21 06:38 | Electrocardiogram Report ---
Test Reason : Blood Pressure : / mmHG Vent. Rate : 073 BPM Atrial Rate : 073 BPM P-R Int : 168 ms QRS Dur : 090 ms QT Int : 400 ms P-R-T Axes : 073 -17 061 degrees QTc Int : 440 ms Normal sinus rhythm Possible Left atrial enlargement Inferior infarct (cited on or before 08-NOV-2021) Anterior infarct (cited on or before 08-NOV-2021) Abnormal ECG When compared with ECG of 18-DEC-2023 04:53, (unconfirmed) No significant change was found Confirmed by Raleigh Olivares ([id number]) on 12/21/2023 6:37:39 AM Referred By: REFERRED SELF Confirmed By:Raleigh Olivares
== END 2023-12-19 12:36 | disposition home or self-care (01) | DRG 305 ==
LOC: ED 23:41 → EDINP 12-17 02:53 → SUATTDRO 12-17 02:53 → 2S 12-17 03:41